=== PATIENT | female | born 1975 | race Caucasian/White ===

== ENCOUNTER 2018-02-25 18:35 | Emergency (ER) | payer MEDICARE, OTHER ==
[2018-02-25 19:12] LABS: BASO % 0.6 % (0.0-1.0); EOS # 0.2 10^3/uL (0.0-0.50); EOS % 3.1 % (0.0-3.0); HEMATOCRIT 32.5 % (36.0-47.0); HEMOGLOBIN 10.3 g/dl (12.0-15.5); IMMATURE GRANULOCYTE % 0.2 % (0-3.0); LYMPH # 2.5 10^3/uL (1.5-4.5); LYMPH % 39.5 % (24.0-44.0); MEAN CORPUSCULAR HEMOGLOBIN 26.9 pg (27.0-33.0); MEAN CORPUSCULAR HGB CONC 31.7 g/dl (32.0-36.5); MEAN CORPUSCULAR VOLUME 84.9 fl (80.0-96.0); MONO # 0.5 10^3/uL (0.0-0.8); MONO % 7.5 % (0.0-5.0); NEUTROPHILS # 3.1 10^3/uL (1.8-7.7); NEUTROPHILS % 49.1 % (36.0-66.0); PLATELET COUNT, AUTOMATED 295 10^3/uL (150-450); RED BLOOD COUNT 3.83 10^6/uL (4.00-5.40); RED CELL DISTRIBUTION WIDTH 15.3 % (11.5-14.5); RETIC HEMOGLOBIN EQUIVALENT 29.7 pg (24-36); RETICULOCYTE # 42.5 10^9/L (17-77); RETICULOCYTE % 1.1 % (0.5-1.5); WHITE BLOOD COUNT 6.4 10^3/uL (4.0-10.0)
[2018-02-25 19:36] LABS: ANION GAP 9 MEQ/L (8-16); BLOOD UREA NITROGEN 10 MG/DL (7-18); CALCIUM LEVEL 8.7 MG/DL (8.5-10.1); CARBON DIOXIDE LEVEL 25 MEQ/L (21-32); CHLORIDE LEVEL 108 MEQ/L (98-107); CK-MB VALUE MASS < 1.0 NG/ML (<3.6); CPK CREATINE PHOSPHOKINASE 109 U/L (26-192); CREATININE FOR GFR 0.74 MG/DL (0.55-1.30); GLOMERULAR FILTRATION RATE > 60.0 (>58); GLUCOSE, FASTING 89 MG/DL (70-100); MB/CK RELATIVE INDEX 0.91 (< OR =4); SODIUM LEVEL 142 MEQ/L (136-145); TROPONIN I < 0.02 NG/ML (< 0.10)
[2018-02-25 19:38] LABS: INR 0.98; PROTHROMBIN TIME 13.1 SECONDS (12.4-14.5)
[2018-02-25 19:39] LABS: PARTIAL THROMBOPLASTIN TIME 28.1 SECONDS (26.8-37.9)
[2018-02-25 19:46] LABS: ABG BASE EXCESS 0.5 (-2.0-2.0); ABG O2 SATURATION 97.4 % (95.0-99.0); ABG PARTIAL PRESSURE CO2 34.9 mmHg (35.0-45.0); ABG PARTIAL PRESSURE O2 96.9 mmHg (75.0-100.0); ABG STANDARD HCO3 24.9 MEQ/L (22.0-26.0); ABG TOTAL CO2 25.1 MEQ/L (22.0-29.0); ABG pH (ARTERIAL) 7.456 UNITS (7.350-7.450)
[2018-02-25] MEDS: ACETAMINOPHEN 325 MG TAB PO (21:13)
[2018-02-25 21:23] LABS: CARBOXYHEMOGLOBIN 1.3 % (0.0-1.5)
== END 2018-02-25 23:15 | disposition home or self-care (01) ==
LOC: M ED 23:15
DX: D64.9 Anemia, unspecified (principal); F41.9 Anxiety disorder, unspecified; R94.31 Abnormal electrocardiogram [ECG] [EKG]; F33.9 Major depressive disorder, recurrent, unspecified; Z98.0 Intestinal bypass and anastomosis status; Z98.890 Other specified postprocedural states; Z79.899 Other long term (current) drug therapy
CPT/HCPCS: 70450

== ENCOUNTER → 2018-03-03 | Outpatient (REF) | payer MEDICARE ==
[2018-03-03 13:25] LABS: HEMATOCRIT 33.6 % (36.0-47.0)
[2018-03-03 13:50] LABS: VITAMIN B12 LEVEL 332 PG/ML
[2018-03-03 13:51] LABS: FOLATE 14.3 NG/ML
[2018-03-03 13:53] LABS: FERRITIN 4 NG/ML (8-252); FREE T4 0.88 NG/DL (0.76-1.46); IRON (FE) 35 UG/DL (50-170); TOTAL IRON BINDING CAPACITY 440 UG/DL (250-450); TOTAL PROTEIN 7.1 GM/DL (6.4-8.2)
[2018-03-04 10:18] LABS: ANTINUCLEAR ANTIBODIES DIRECT Negative (Negative)
[2018-03-04 10:18] LABS: HAPTOGLOBIN 121 mg/dL (34-200)
[2018-03-07 11:04] LABS: PRETREATED FOLATE FOR RBCFOL 8.3 NG/ML; RBC FOLATE 518.8 NG/ML (280-791)
[2018-03-07 13:26] LABS: ALBUMIN % 59.9 % (55.8-66.1)
[2018-03-07 13:27] LABS: ALBUMIN 4.25 GM/DL (3.29-5.55); ALPHA-1-GLOBULINS 0.28 GM/DL (0.17-0.41); ALPHA-2-GLOBULINS 0.74 GM/DL (0.42-0.99); ALPHA-2-GLOBULINS % 10.4 % (7.1-11.8); BETA-1-GLOBULINS % 7.1 % (4.7-7.2); BETA-2-GLOBULINS 0.31 GM/DL (0.19-0.55); BETA-2-GLOBULINS % 4.3 % (3.2-6.5); GAMMA GLOBULIN % 14.3 % (11.1-18.8); GAMMA GLOBULINS 1.02 GM/DL (0.65-1.58)
== END ==
LOC: M LAB REF 12:44
DX: D64.9 Anemia, unspecified (principal); R53.83 Other fatigue
CPT/HCPCS: 82746

== ENCOUNTER → 2018-04-21 | Outpatient (REF) | payer MEDICARE ==
[2018-04-21 13:55] LABS: FERRITIN 51 NG/ML (8-252); IRON (FE) 61 UG/DL (50-170); PERCENT SATURATION 20.3 % (13.2-45.0); TOTAL IRON BINDING CAPACITY 301 UG/DL (250-450)
== END ==
LOC: M LAB REF 13:23
DX: D50.9 Iron deficiency anemia, unspecified (principal); K91.2 Postsurgical malabsorption, not elsewhere classified; R53.83 Other fatigue
CPT/HCPCS: 83550

== ENCOUNTER → 2018-08-27 | Outpatient (REF) | payer MEDICARE ==
[2018-08-27 19:19] LABS: BASO # 0.1 10^3/uL (0.0-0.2); BASO % 0.6 % (0.0-1.0); EOS # 0.1 10^3/uL (0.0-0.50); EOS % 1.3 % (0.0-3.0); HEMATOCRIT 40.9 % (36.0-47.0); HEMOGLOBIN 13.3 g/dl (12.0-15.5); IMMATURE GRANULOCYTE % 0.2 % (0-3.0); LYMPH # 1.6 10^3/uL (1.5-4.5); LYMPH % 19.1 % (24.0-44.0); MEAN CORPUSCULAR HEMOGLOBIN 32.4 pg (27.0-33.0); MEAN CORPUSCULAR HGB CONC 32.5 g/dl (32.0-36.5); MEAN CORPUSCULAR VOLUME 99.5 fl (80.0-96.0); MONO # 0.6 10^3/uL (0.0-0.8); NEUTROPHILS # 5.9 10^3/uL (1.8-7.7); NEUTROPHILS % 71.8 % (36.0-66.0); PLATELET COUNT, AUTOMATED 268 10^3/uL (150-450); RED BLOOD COUNT 4.11 10^6/uL (4.00-5.40); WHITE BLOOD COUNT 8.2 10^3/uL (4.0-10.0)
[2018-08-27 19:34] LABS: ALBUMIN 3.6 GM/DL (3.2-5.2); ALBUMIN/GLOBULIN RATIO 1.33 (1.00-1.93); ALKALINE PHOSPHATASE 52 U/L (45-117); ALT/SGPT 21 U/L (12-78); ANION GAP 5 MEQ/L (8-16); AST/SGOT 14 U/L (7-37); BILIRUBIN,TOTAL 0.2 MG/DL (0.2-1.0); BLOOD UREA NITROGEN 5 MG/DL (7-18); CALCIUM LEVEL 8.3 MG/DL (8.5-10.1); CARBON DIOXIDE LEVEL 29 MEQ/L (21-32); CHLORIDE LEVEL 107 MEQ/L (98-107); FERRITIN 135 NG/ML (8-252); GLOMERULAR FILTRATION RATE > 60.0 (>58); GLUCOSE, FASTING 72 MG/DL (70-100); IRON (FE) 96 UG/DL (50-170); POTASSIUM SERUM 4.4 MEQ/L (3.5-5.1); RHEUMATOID FACTOR QUANT < 10.0 IU/ML (<15.0); SODIUM LEVEL 141 MEQ/L (136-145); TOTAL PROTEIN 6.3 GM/DL (6.4-8.2)
[2018-08-28 10:21] LABS: VITAMIN B12 LEVEL 401 PG/ML (247-911)
[2018-08-29 15:15] LABS: ANTINUCLEAR ANTIBODIES DIRECT Negative (Negative)
[2018-08-30 00:06] LABS: Lyme Disease IgG/IgM Antibodie <0.91 ISR (0.00-0.90); Lyme Disease IgM Ab Quantitati <0.80 index (0.00-0.79)
== END ==
LOC: M SFHCLERA 11:21
DX: R53.83 Other fatigue (principal); M25.50 Pain in unspecified joint; D64.9 Anemia, unspecified
CPT/HCPCS: 83540

== ENCOUNTER → 2018-12-15 | Outpatient (CLI) | payer MEDICARE ==
[~2018-12-15] MED LIST: DYMI137S; GERITAB9 PO; IRON50TA PO; LEXA1TAB2 PO; MAGN400C3 PO; MULTCAP PO; NEXI20CA PO; VITA50005 PO; XANA0.5T PO
--- NOTE | 2018-12-15 11:57 | REP ---
MAXILLOFACIAL CT WITHOUT CONTRAST: HISTORY: Recurrent sinusitis. The frontal sinuses are hypoplastic. Minimal mucosal thickening is present in the right maxillary sinus. Mild mucosal thickening is present in the left sphenoid sinus. The remaining sinuses are clear. The ostiomeatal units are patent. The middle and inferior nasal turbinates are partially paradoxical. There is gabriella bullosa of the left middle nasal turbinate. There is very minimal deviation of the nasal septum to the right. The cribriform plate, medial talavera of the orbits and optic canals are intact. There is aeration of the right anterior clinoid process. The carotid canals form a segment of the posterolateral talavera of the sphenoid sinus. The sphenoid sinus septum inserts into the right internal carotid canal wall. IMPRESSION: Sinus mucosal thickening as described above. Electronically Signed by Oscar Crain MD 12/15/2018 12:03 P
== END ==
LOC: M RAD 11:23
PROVIDERS: ATTEND Family Medicine
DX: J32.9 Chronic sinusitis, unspecified (principal)

== ENCOUNTER 2019-03-02 10:41 | Day surgery (SDC) | payer MEDICARE ==
[~2019-03-02] VITALS: Ht 160 cm; Wt 78.9 kg
[~2019-03-02 10:41] MED LIST changes: +MONT10TA2 PO; +NS 1,000 ML IV ONE; +SM A PO
[2019-03-02] MEDS ORDERED: PROPOFOL 200 MG/20 ML VIAL As Ordered ONE (12:18)
[2019-03-02] MEDS ORDERED: LIDOCAINE 2% INJ 100 MG/5 ML SDV (FOR ANES.) As Ordered ONE (12:18)
--- NOTE | 2019-03-02 13:44 | ROOR ---
Patient Name: Meagan Hart Procedure Date: 03/02/2019 12:56 PM Date of : 1975 Age: 43 Room: [facility], [facility]IN [facility] Gender: Female Note Status: Finalized Procedure: Upper GI endoscopy Indications: Epigastric abdominal pain, Heartburn Providers: Rizwan Chow MD Referring MD: Leah MARIA MD Requesting Provider: Medicines: Monitored Anesthesia Care Complications: No immediate complications. Procedure: Pre-Anesthesia Assessment: - Prior to the procedure, a History and Physical was performed, and patient medications and allergies were reviewed. The patient is competent. The risks and benefits of the procedure and the sedation options and risks were discussed with the patient. All questions were answered and informed consent was obtained. Patient identification and proposed procedure were verified by the physician, the nurse and the anesthesiologist in the procedure room. Mental Status Examination: alert and oriented. Airway Examination: normal oropharyngeal airway and neck mobility. Respiratory Examination: clear to auscultation. CV Examination: normal. Prophylactic Antibiotics: The patient does not require prophylactic antibiotics. Prior Anticoagulants: The patient has taken no previous anticoagulant or antiplatelet agents. ASA Grade Assessment: II - A patient with mild systemic disease. After reviewing the risks and benefits, the patient was deemed in satisfactory condition to undergo the procedure. The anesthesia plan was to use monitored anesthesia care (MAC). Immediately prior to administration of medications, the patient was re-assessed for adequacy to receive sedatives. The heart rate, respiratory rate, oxygen saturations, blood pressure, adequacy of pulmonary ventilation, and response to care were monitored throughout the procedure. The physical status of the patient was re-assessed after the procedure. The Endoscope was introduced through the mouth, and advanced to the second part of duodenum. The upper GI endoscopy was accomplished without difficulty. The patient tolerated the procedure well. Findings: The examined esophagus was normal. The Z-line was irregular and was found 34 cm from the incisors. Evidence of a gastric bypass was found. A gastric pouch with a small size was found. The staple line appeared intact. The gastrojejunal anastomosis was characterized by healthy appearing mucosa and congestion. This was traversed. The jejunojejunal anastomosis was characterized by healthy appearing mucosa. The aricqixc-wh-loddhmk limb was not examined as it could not be found. Two biopsies were obtained with cold forceps for Helicobacter pylori testing in the gastric fundus, as well as one biopsy at the anastomosis. Verification of patient identification for the specimen was done by the physician and nurse using the patient's name, date and medical record number. Estimated blood loss was minimal. Normal mucosa was found in the jejunum. Biopsies for histology were taken with a cold forceps for evaluation of celiac disease. Impression: - Normal esophagus. - Z-line irregular, 34 cm from the incisors. - Gastric bypass with a small-sized pouch and intact staple line. Gastrojejunal anastomosis characterized by healthy appearing mucosa and congestion. - Normal mucosa was found in the jejunum. Biopsied. - Biopsies performed in the gastric fundus and at the anastomosis. Recommendation: - Patient has a contact number available for emergencies. The signs and symptoms of potential delayed complications were discussed with the patient. Return to normal activities tomorrow. Written discharge instructions were provided to the patient. - High fiber diet. - Continue present medications. - Recommend an iron supplement. - Follow an antireflux regimen. - Await pathology results. - Based on the biopsy results you will receive a phone call from GI clinic in 2-3 weeks to review the pathology results AND/OR your results will be faxed to your Primary care physician. - Return to primary care physician. Rizwan Chow MD Rizwan Chow MD 03/02/2019 1:44:07 PM Electronically signed by Rizwan Chow MD Number of Addenda: 0 Note Initiated On: 03/02/2019 12:56 PM Estimated Blood Loss: Estimated blood loss was minimal.
[2019-03-02 13:55] VITALS: BP 99/59
--- NOTE | 2019-03-02 14:08 | ROOR ---
Patient Name: Meagan Hart Procedure Date: 03/02/2019 12:57 PM Date of : 1975 Age: 43 Room: [facility] Gender: Female Note Status: Finalized Procedure: Colonoscopy Indications: Chronic diarrhea Providers: Rizwan Chow MD Referring MD: Leah MARIA MD Requesting Provider: Medicines: Monitored Anesthesia Care Complications: No immediate complications. Procedure: Pre-Anesthesia Assessment: - Prior to the procedure, a History and Physical was performed, and patient medications and allergies were reviewed. The patient is competent. The risks and benefits of the procedure and the sedation options and risks were discussed with the patient. All questions were answered and informed consent was obtained. Patient identification and proposed procedure were verified by the physician, the nurse and the anesthesiologist in the procedure room. Mental Status Examination: alert and oriented. Airway Examination: normal oropharyngeal airway and neck mobility. Respiratory Examination: clear to auscultation. CV Examination: normal. Prophylactic Antibiotics: The patient does not require prophylactic antibiotics. Prior Anticoagulants: The patient has taken no previous anticoagulant or antiplatelet agents. ASA Grade Assessment: II - A patient with mild systemic disease. After reviewing the risks and benefits, the patient was deemed in satisfactory condition to undergo the procedure. The anesthesia plan was to use monitored anesthesia care (MAC). Immediately prior to administration of medications, the patient was re-assessed for adequacy to receive sedatives. The heart rate, respiratory rate, oxygen saturations, blood pressure, adequacy of pulmonary ventilation, and response to care were monitored throughout the procedure. The physical status of the patient was re-assessed after the procedure. The Colonoscope was introduced through the anus and advanced to the terminal ileum, with identification of the appendiceal orifice and IC valve. The colonoscopy was performed without difficulty. The patient tolerated the procedure well. The quality of the bowel preparation was good. The terminal ileum, ileocecal valve, appendiceal orifice, and rectum were photographed. Scope insertion time was 3 minutes. Scope withdrawal time was 6 minutes. The total duration of the procedure was 9 minutes. Findings: The perianal and digital rectal examinations were normal. The terminal ileum appeared normal. A 5 mm polyp was found in the transverse colon. The polyp was sessile. The polyp was removed with a cold biopsy forceps. Resection and retrieval were complete. Verification of patient identification for the specimen was done by the physician and nurse using the patient's name, date and medical record number. Estimated blood loss was minimal. Non-bleeding external and internal hemorrhoids were found during retroflexion. The hemorrhoids were small. Normal mucosa was found in the entire colon. Biopsies for histology were taken with a cold forceps from the right colon, left colon and rectosigmoid colon for evaluation of microscopic colitis. Impression: - The examined portion of the ileum was normal. - One 5 mm polyp in the transverse colon, removed with a cold biopsy forceps. Resected and retrieved. - Non-bleeding external and internal hemorrhoids. - Normal mucosa in the entire examined colon. Biopsied. Recommendation: - Patient has a contact number available for emergencies. The signs and symptoms of potential delayed complications were discussed with the patient. Return to normal activities tomorrow. Written discharge instructions were provided to the patient. - High fiber diet. - Continue present medications. - Await pathology results. - Repeat colonoscopy in 5-10 years for surveillance based on pathology results. - Based on the biopsy results you will receive a phone call from GI clinic in 2-3 weeks to review the pathology results AND/OR your results will be faxed to your Primary care physician. - Return to primary care physician. Rizwan Chow MD Rizwan Chow MD 03/02/2019 2:07:59 PM Electronically signed by Rizwan Chow MD Number of Addenda: 0 Note Initiated On: 03/02/2019 12:57 PM Estimated Blood Loss: Estimated blood loss was minimal.
== END 2019-03-02 14:05 | disposition home or self-care (01) ==
LOC: M OPP 10:41
PROVIDERS: ATTEND Internal Medicine Gastroenterology
DX: D12.3 Benign neoplasm of transverse colon (principal); K64.8 Other hemorrhoids; K22.8 Other specified diseases of esophagus; R10.13 Epigastric pain; R12 Heartburn; Z98.84 Bariatric surgery status

== ENCOUNTER → 2019-07-13 | Outpatient (CLI) | payer MEDICARE ==
[~2019-07-13] MED LIST changes: -NS 1,000 ML IV ONE
[2019-07-13 18:24] LABS: CHOLESTEROL RISK RATIO 5.245 (<5)
== END ==
LOC: M WUC 10:58
PROVIDERS: ATTEND Family Medicine
DX: Z13.1 Encounter for screening for diabetes mellitus (principal); Z13.220 Encounter for screening for lipoid disorders

== ENCOUNTER → 2019-07-20 | Outpatient (CLI) | payer MEDICARE ==
[2019-07-20 10:07] LABS: FREE T4 0.88 NG/DL (0.76-1.46); THYROID STIMULATING HORMONE 2.54 uIU/ML (0.358-3.740)
== END ==
LOC: M WUC 08:37
PROVIDERS: ATTEND Family Medicine
DX: R53.83 Other fatigue (principal)

== ENCOUNTER → 2019-07-28 | Outpatient (CLI) | payer MEDICARE ==
[2019-07-28 14:54] LABS: BASO % 0.5 % (0.0-1.0); EOS # 0.2 10^3/uL (0.0-0.5); HEMATOCRIT 40.9 % (36.0-47.0); HEMOGLOBIN 13.7 g/dl (12.0-15.5); LYMPH # 2.4 10^3/uL (1.5-5.0); MEAN CORPUSCULAR HEMOGLOBIN 31.9 pg (27.0-33.0); MEAN CORPUSCULAR HGB CONC 33.5 g/dl (32.0-36.5); MEAN CORPUSCULAR VOLUME 95.3 fl (80.0-96.0); MONO # 0.6 10^3/uL (0.0-0.8); MONO % 7.8 % (0.0-5.0); NEUTROPHILS # 4.4 10^3/uL (1.5-8.5); NEUTROPHILS % 58.4 % (36.0-66.0); PLATELET COUNT, AUTOMATED 252 10^3/uL (150-450); RED BLOOD COUNT 4.29 10^6/uL (4.00-5.40); WHITE BLOOD COUNT 7.6 10^3/uL (4.0-10.0)
[2019-07-28 15:16] LABS: ALBUMIN 3.7 GM/DL (3.2-5.2); ALT/SGPT 18 U/L (12-78); BILIRUBIN,TOTAL 0.4 MG/DL (0.2-1.0); BLOOD UREA NITROGEN 6 MG/DL (7-18); CALCIUM LEVEL 8.5 MG/DL (8.5-10.1); CARBON DIOXIDE LEVEL 27 MEQ/L (21-32); CHLORIDE LEVEL 107 MEQ/L (98-107); CHOLESTEROL LEVEL 240 MG/DL (<200); CHOLESTEROL RISK RATIO 5.217 (<5); GLOMERULAR FILTRATION RATE > 60.0 (>58); GLUCOSE, FASTING 73 MG/DL (70-100); HDL CHOLESTEROL 46 MG/DL (>40); LDL CHOLESTEROL 168 MG/DL (<100); NON-HDL-C 194 MG/DL; POTASSIUM SERUM 4.2 MEQ/L (3.5-5.1); SODIUM LEVEL 140 MEQ/L (136-145); TOTAL PROTEIN 6.6 GM/DL (6.4-8.2); TRIGLYCERIDES LEVEL 129 MG/DL (<150)
[2019-07-30 10:34] LABS: PTH INTACT 112.7 PG/ML (18.5-88.0); TOTAL 25(OH) VITAMIN D 19.4 NG/ML (30.0-100.0); VITAMIN B12 LEVEL 225 PG/ML
[2019-07-30 10:35] LABS: FOLATE 17.4 NG/ML
[2019-08-01 10:35] LABS: COPPER PLASMA 99 ug/dL (72-166); ZINC PLASMA 65 ug/dL (56-134)
== END ==
LOC: M WUC 11:02
PROVIDERS: ATTEND Family Medicine
DX: D50.9 Iron deficiency anemia, unspecified (principal); E78.2 Mixed hyperlipidemia; Z98.84 Bariatric surgery status; Z79.899 Other long term (current) drug therapy

== ENCOUNTER 2020-07-02 17:31 | Emergency (ER) | payer MEDICARE ==
[~2020-07-02] VITALS: Ht 154.9 cm; Wt 82.1 kg
[~2020-07-02 17:31] MED LIST changes: -MONT10TA2 PO; +MONT10TA4 PO
[2020-07-02] MEDS ORDERED: NS 1,000 ML IV ONE (18:00)
[2020-07-02 18:25] LABS: BASO # 0.1 10^3/uL (0.0-0.2); BASO % 0.7 % (0.0-1.0); EOS # 0.1 10^3/uL (0.0-0.5); EOS % 0.7 % (0.0-3.0); HEMATOCRIT 37.3 % (36.0-47.0); HEMOGLOBIN 12.4 g/dl (12.0-15.5); LYMPH # 2.1 10^3/uL (1.5-5.0); LYMPH % 30.8 % (24.0-44.0); MEAN CORPUSCULAR HEMOGLOBIN 31.9 pg (27.0-33.0); MEAN CORPUSCULAR HGB CONC 33.2 g/dl (32.0-36.5); MEAN CORPUSCULAR VOLUME 95.9 fl (80.0-96.0); MONO # 0.5 10^3/uL (0.0-0.8); MONO % 7.9 % (0.0-5.0); NEUTROPHILS % 59.8 % (36.0-66.0); PLATELET COUNT, AUTOMATED 245 10^3/uL (150-450); RED BLOOD COUNT 3.89 10^6/uL (4.00-5.40); WHITE BLOOD COUNT 6.7 10^3/uL (4.0-10.0)
[2020-07-02 18:47] LABS: ALBUMIN 3.8 GM/DL (3.2-5.2); ALT/SGPT 22 U/L (12-78); BILIRUBIN,DIRECT < 0.1 MG/DL (0.0-0.2); BILIRUBIN,TOTAL 0.2 MG/DL (0.2-1.0); LIPASE 172 U/L (73-393); TOTAL PROTEIN 7.2 GM/DL (6.4-8.2)
[2020-07-02] MEDS: GASTROGRAFIN SOLUTION 30ML PO SCH ×2 (19:21→19:52)
[2020-07-02] MEDS ORDERED: ISOVUE-370 76% 100ML VIAL As Ordered ONE (20:45)
--- NOTE | 2020-07-02 21:25 | REPVR ---
PROCEDURE INFORMATION: Exam: CT Abdomen And Pelvis With Contrast Exam date and time: 07/02/2020 8:54 PM Age: 44 years old Clinical indication: Abdominal pain; Additional info: Rlq, llq abd pain, S/P gastric bypass, R/O appendicitis TECHNIQUE: Imaging protocol: Computed tomography of the abdomen and pelvis with intravenous contrast. Axial, coronal and sagittal reformatted images were created and reviewed. Radiation optimization: All CT scans at this facility use at least one of these dose optimization techniques: automated exposure control; mA and/or kV adjustment per patient size (includes targeted exams where dose is matched to clinical indication); or iterative reconstruction. Contrast material: ISOVUE 370; Contrast volume: 100 ml; Contrast route: INTRAVENOUS (IV); Other contrast: Oral, gastrographin; COMPARISON: No relevant prior studies available. FINDINGS: Mediastinal space: Small hiatal hernia. Liver: Unremarkable. Gallbladder and bile ducts: No radiodense gallstones. No biliary ductal dilatation. Pancreas: Unremarkable. Spleen: Unremarkable. Adrenals: Unremarkable. Kidneys and ureters: No mass. No radiodense calculi. No hydronephrosis. Stomach and bowel: Status post gastric bypass surgery. No obstruction. No bowel wall thickening. No pneumatosis. Appendix: Normal. Intraperitoneal space: No free fluid. No organized fluid collection. No free air. Vasculature: Unremarkable. No aneurysm. Lymph nodes: No pathologically enlarged lymph nodes. Bladder: Unremarkable. Reproductive: 3.5 x 2.8 cm right adnexal cystic lesion. Bones/joints: No acute osseous abnormality. Soft tissues: Unremarkable. IMPRESSION: 1. No CT evidence of acute appendicitis. 2. Additional findings, as above. Electronically signed by: Reji Mclaughlin On 07/02/2020 21:24:51 PM
[2020-07-02 21:45] VITALS: BP 105/53
== END 2020-07-02 21:47 | disposition home or self-care (01) ==
LOC: M ED 17:31
DX: R10.31 Right lower quadrant pain (principal); N83.201 Unspecified ovarian cyst, right side; D64.9 Anemia, unspecified; K21.9 Gastro-esophageal reflux disease without esophagitis; F42.9 Obsessive-compulsive disorder, unspecified; F60.9 Personality disorder, unspecified; F40.01 Agoraphobia with panic disorder; F12.10 Cannabis abuse, uncomplicated; Z79.899 Other long term (current) drug therapy
CPT/HCPCS: 74177; 80047; 80076; 81001; 83690; 84702; 85025; 96360; 99284; Q9963; Q9967

== ENCOUNTER → 2020-09-02 | Outpatient (REF) | payer MEDICARE | LOC: M SFHCWAGY 13:35 | PROVIDERS: ATTEND Nurse Practitioner Women's Health | DX: Z12.4 Encounter for screening for malignant neoplasm of cervix (principal) | CPT/HCPCS: 87624; G0123; G0463 ==

== ENCOUNTER → 2021-02-13 | Outpatient (CLI) | payer MEDICARE ==
[~2021-02-13] MED LIST changes: +ALL10TAB PO; +MONT10TA10 PO; -MONT10TA4 PO; -SM A PO
[2021-02-13 16:18] LABS: BASO # 0.1 10^3/uL (0.0-0.2); BASO % 0.8 % (0.0-1.0); EOS % 0.6 % (0.0-3.0); HEMATOCRIT 40.6 % (36.0-47.0); HEMOGLOBIN 13.1 g/dl (12.0-15.5); LYMPH # 1.8 10^3/uL (1.5-5.0); LYMPH % 29.3 % (24.0-44.0); MEAN CORPUSCULAR HEMOGLOBIN 30.8 pg (27.0-33.0); MEAN CORPUSCULAR HGB CONC 32.3 g/dl (32.0-36.5); MEAN CORPUSCULAR VOLUME 95.3 fl (80.0-96.0); MONO # 0.5 10^3/uL (0.0-0.8); MONO % 8.3 % (2.0-8.0); NEUTROPHILS # 3.8 10^3/uL (1.5-8.5); NEUTROPHILS % 60.8 % (36.0-66.0); PLATELET COUNT, AUTOMATED 271 10^3/uL (150-450); RED BLOOD COUNT 4.26 10^6/uL (4.00-5.40); WHITE BLOOD COUNT 6.3 10^3/uL (4.0-10.0)
[2021-02-13 17:03] LABS: FOLATE 10.6 NG/ML; TOTAL 25(OH) VITAMIN D 22.6 NG/ML (30.0-100.0)
== END ==
LOC: M WUC 13:53
PROVIDERS: ATTEND Family Medicine
DX: Z98.84 Bariatric surgery status (principal)

== ENCOUNTER 2021-06-14 08:23 | Emergency (ER) | payer MEDICARE ==
[~2021-06-14] VITALS: Ht 157.5 cm; Wt 86.5 kg
[~2021-06-14 08:23] MED LIST changes: -MONT10TA10 PO; +MONT10TA97 PO
[2021-06-14] MEDS ORDERED: IBUP-1022 PO (08:42)
[2021-06-14] MEDS ORDERED: ACET-683 PO (08:42)
[2021-06-14 09:46] LABS: BASO % 0.3 % (0.0-1.0); HEMOGLOBIN 13.7 g/dl (12.0-15.5); LYMPH # 0.7 10^3/uL (1.5-5.0); LYMPH % 19.4 % (24.0-44.0); MEAN CORPUSCULAR HEMOGLOBIN 30.8 pg (27.0-33.0); MEAN CORPUSCULAR HGB CONC 33.4 g/dl (32.0-36.5); MEAN CORPUSCULAR VOLUME 92.1 fl (80.0-96.0); MONO # 0.2 10^3/uL (0.0-0.8); MONO % 4.3 % (2.0-8.0); NEUTROPHILS # 2.8 10^3/uL (1.5-8.5); NEUTROPHILS % 75.7 % (36.0-66.0); PLATELET COUNT, AUTOMATED 166 10^3/uL (150-450); RED BLOOD COUNT 4.45 10^6/uL (4.00-5.40); WHITE BLOOD COUNT 3.7 10^3/uL (4.0-10.0)
[2021-06-14 10:07] LABS: ERYTHROCYTE SEDIMENTATION RATE 32 mm/hr (0-20)
[2021-06-14 10:08] LABS: ALBUMIN 3.1 GM/DL (3.2-5.2); ALT/SGPT 23 U/L (12-78); BILIRUBIN,DIRECT < 0.1 MG/DL (0.0-0.2); BILIRUBIN,TOTAL 0.2 MG/DL (0.2-1.0); BLOOD UREA NITROGEN 8 MG/DL (7-18); C REACTIVE PROTEIN QUANTITATIV 1.33 MG/DL (0.00-0.30); CALCIUM LEVEL 7.9 MG/DL (8.5-10.1); CARBON DIOXIDE LEVEL 24 MEQ/L (21-32); CHLORIDE LEVEL 112 MEQ/L (98-107); CREATININE FOR GFR 0.56 MG/DL (0.55-1.30); GLOMERULAR FILTRATION RATE > 60.0 (>58); GLUCOSE, FASTING 76 MG/DL (70-100); POTASSIUM SERUM 3.6 MEQ/L (3.5-5.1); SODIUM LEVEL 141 MEQ/L (136-145); TOTAL PROTEIN 6.3 GM/DL (6.4-8.2)
[2021-06-14 11:55] VITALS: BP 117/60
[2021-06-14 11:57] VITALS: O2SAT 97
[2021-06-16 16:08] LABS: Lyme Disease IgG/IgM Antibodie <0.91 ISR (0.00-0.90); Lyme Disease IgM Ab Quantitati <0.80 index (0.00-0.79)
[2021-06-27] MEDS ORDERED: MONT10TA97 (12:21)
== END 2021-06-14 12:14 | disposition home or self-care (01) ==
LOC: M ED 08:23
DX: U07.1 COVID-19 (principal); F41.9 Anxiety disorder, unspecified; F42.9 Obsessive-compulsive disorder, unspecified; F60.9 Personality disorder, unspecified; Z79.899 Other long term (current) drug therapy

== ENCOUNTER 2021-06-27 11:55 | Emergency (ER) | payer MEDICARE ==
[~2021-06-27] VITALS: Ht 154.9 cm; Wt 84.2 kg
[~2021-06-27 11:55] MED LIST changes: +ACET-683 PO; +IBUP-1022 PO; +MONT10TA10 PO; -MONT10TA97 PO
[2021-06-27] MEDS ORDERED: GERILIQ7 PO (12:21)
[2021-06-27] MEDS ORDERED: MONT10TA10 (12:21)
[2021-06-27 13:25] LABS: BASO % 0.6 % (0.0-1.0); EOS % 0.3 % (0.0-3.0); HEMATOCRIT 41.8 % (36.0-47.0); LYMPH # 1.5 10^3/uL (1.5-5.0); LYMPH % 23.5 % (24.0-44.0); MEAN CORPUSCULAR HEMOGLOBIN 30.8 pg (27.0-33.0); MEAN CORPUSCULAR HGB CONC 33.5 g/dl (32.0-36.5); MEAN CORPUSCULAR VOLUME 92.1 fl (80.0-96.0); MONO # 0.5 10^3/uL (0.0-0.8); MONO % 7.6 % (2.0-8.0); NEUTROPHILS # 4.4 10^3/uL (1.5-8.5); PLATELET COUNT, AUTOMATED 474 10^3/uL (150-450); RED BLOOD COUNT 4.54 10^6/uL (4.00-5.40); WHITE BLOOD COUNT 6.5 10^3/uL (4.0-10.0)
[2021-06-27 13:55] LABS: ALBUMIN 3.4 GM/DL (3.2-5.2); ALT/SGPT 26 U/L (12-78); BILIRUBIN,DIRECT 0.1 MG/DL (0.0-0.2); BILIRUBIN,TOTAL 0.5 MG/DL (0.2-1.0); BLOOD UREA NITROGEN 5 MG/DL (7-18); CALCIUM LEVEL 8.8 MG/DL (8.5-10.1); CARBON DIOXIDE LEVEL 26 MEQ/L (21-32); CHLORIDE LEVEL 108 MEQ/L (98-107); CK-MB VALUE MASS < 1.0 NG/ML (<3.6); CPK CREATINE PHOSPHOKINASE 46 U/L (26-192); CREATININE FOR GFR 0.62 MG/DL (0.55-1.30); FREE T4 1.02 NG/DL (0.76-1.46); GLOMERULAR FILTRATION RATE > 60.0 (>58); GLUCOSE, FASTING 109 MG/DL (70-100); LIPASE 354 U/L (73-393); MB/CK RELATIVE INDEX 2.17 (< OR =4); POTASSIUM SERUM 3.7 MEQ/L (3.5-5.1); SODIUM LEVEL 141 MEQ/L (136-145); THYROID STIMULATING HORMONE 0.779 uIU/ML (0.358-3.740); TOTAL PROTEIN 6.9 GM/DL (6.4-8.2); TROPONIN I < 0.02 NG/ML (< 0.10)
[2021-06-27] MEDS ORDERED: ISOVUE-370 76% 100ML VIAL As Ordered ONE (13:57)
[2021-06-27] MEDS ORDERED: ALPRAZolam 0.5 MG TAB PO ONE (14:35)
--- NOTE | 2021-06-27 14:49 | REP ---
INDICATION: R/O PE. COMPARISON: None. TECHNIQUE: CT angiogram chest performed following the intravenous administration of 100 cc of Isovue 370. Sagittal and coronal reconstruction images are performed. FINDINGS: Lungs: There are scattered patchy bilateral infiltrates. These are seen primarily in the lower lobes, right greater than the left. Mediastinum: No adenopathy. Pulmonary arteries: No evidence of pulmonary embolism. Cecille: No adenopathy. Axilla: No adenopathy. Pleura: No effusion. Heart: There is mild cardiomegaly. Thoracic aorta: No aneurysm or dissection. Upper abdominal structures: There is a small hiatal hernia. There has been prior gastric surgery and cholecystectomy. Visualized osseous structures: Unremarkable. IMPRESSION: No CT evidence of pulmonary embolism. Scattered patchy bilateral infiltrates. <Electronically signed by Brandon Thompson > 06/27/21
[2021-06-27 15:24] VITALS: O2SAT 97
[2021-06-27 19:01] LABS: CK-MB VALUE MASS < 1.0 NG/ML (<3.6); CPK CREATINE PHOSPHOKINASE 36 U/L (26-192); MB/CK RELATIVE INDEX 2.78 (< OR =4); TROPONIN I < 0.02 NG/ML (< 0.10)
[2021-06-27 19:30] VITALS: BP 103/58
[2021-06-27] MEDS ORDERED: AZITHROMYCIN 250MG TABLET PO ONE (19:50)
[2021-06-27] MEDS ORDERED: AZIT-12 PO (19:58)
--- NOTE | 2021-06-28 19:55 | ECGEPIP ---
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
--- NOTE | 2021-06-28 20:02 | ECGEPIP ---
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
== END 2021-06-27 20:21 | disposition home or self-care (01) ==
LOC: M ED 11:55
DX: R07.9 Chest pain, unspecified (principal); F41.9 Anxiety disorder, unspecified; K58.9 Irritable bowel syndrome, unspecified; D50.9 Iron deficiency anemia, unspecified; Q07.00 Arnold-Chiari syndrome without spina bifida or hydrocephalus; Z79.899 Other long term (current) drug therapy
CPT/HCPCS: 36415; 71275; 80048; 80076; 82550; 82553; 83690; 84439; 84443; 84484; 85025; 93005; 93041; 94760; 99285; Q9967

== ENCOUNTER 2021-07-11 10:53 | Emergency (ER) | payer MEDICARE ==
[~2021-07-11] VITALS: Ht 157.5 cm; Wt 82.9 kg
[~2021-07-11 10:53] MED LIST changes: +AZIT-12 PO; +GERILIQ7 PO; +MONT10TA10
[2021-07-11] MEDS ORDERED: ALPRAZolam 0.5 MG TAB PO ONE (12:25)
[2021-07-11 13:07] LABS: BASO % 0.5 % (0.0-1.0); EOS % 0.3 % (0.0-3.0); HEMATOCRIT 40.4 % (36.0-47.0); HEMOGLOBIN 13.8 g/dl (12.0-15.5); LYMPH # 1.5 10^3/uL (1.5-5.0); MEAN CORPUSCULAR HEMOGLOBIN 31.5 pg (27.0-33.0); MEAN CORPUSCULAR HGB CONC 34.2 g/dl (32.0-36.5); MEAN CORPUSCULAR VOLUME 92.2 fl (80.0-96.0); MONO # 0.4 10^3/uL (0.0-0.8); MONO % 6.2 % (2.0-8.0); NEUTROPHILS # 4.6 10^3/uL (1.5-8.5); NEUTROPHILS % 69.7 % (36.0-66.0); PLATELET COUNT, AUTOMATED 250 10^3/uL (150-450); RED BLOOD COUNT 4.38 10^6/uL (4.00-5.40); WHITE BLOOD COUNT 6.6 10^3/uL (4.0-10.0)
[2021-07-11 13:41] LABS: BLOOD UREA NITROGEN 6 MG/DL (7-18); CALCIUM LEVEL 8.7 MG/DL (8.5-10.1); CARBON DIOXIDE LEVEL 25 MEQ/L (21-32); CHLORIDE LEVEL 110 MEQ/L (98-107); CK-MB VALUE MASS < 1.0 NG/ML (<3.6); CPK CREATINE PHOSPHOKINASE 48 U/L (26-192); CREATININE FOR GFR 0.55 MG/DL (0.55-1.30); FREE T4 1.07 NG/DL (0.76-1.46); GLOMERULAR FILTRATION RATE > 60.0 (>58); GLUCOSE, FASTING 88 MG/DL (70-100); MB/CK RELATIVE INDEX 2.08 (< OR =4); SODIUM LEVEL 142 MEQ/L (136-145); TROPONIN I < 0.02 NG/ML (< 0.10)
--- NOTE | 2021-07-11 16:43 | REP ---
INDICATION: blurred vision. COMPARISON: None. TECHNIQUE: Contiguous 5 mm thick axial projection images were obtained of the head. 2D coronal reconstructions were performed. FINDINGS: There is no evidence of acute intracranial hemorrhage or infarction. There are no abnormal intracranial masses or mass effects. The skull base and calvarium are normal. The visualized intraorbital and extracranial contents are unremarkable. IMPRESSION: Normal CT brain without IV contrast. <Electronically signed by David Groe > 07/11/21 [id number]
[2021-07-11 17:32] VITALS: BP 128/76
--- NOTE | 2021-07-12 08:21 | ECGEPIP ---
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
== END 2021-07-11 17:35 | disposition home or self-care (01) ==
LOC: M ED 10:53
DX: H53.9 Unspecified visual disturbance (principal); T50.995A Adverse effect of other drugs, medicaments and biological substances, initial encounter; F41.9 Anxiety disorder, unspecified; G93.5 Compression of brain; Z79.899 Other long term (current) drug therapy

== ENCOUNTER → 2021-07-24 | Outpatient (CLI) | payer MEDICARE ==
[~2021-07-24] MED LIST changes: +ATIV1TAB10 PO; +GABA-1171 PO; +LEXA1TAB PO; +MULTTAB61 PO; +MYLA1SUS PO; +NICO7PA TD; +PRENCHW PO
--- NOTE | 2021-07-24 13:38 | REPMRS ---
Patient History The patient states she has not had a clinical breast exam in over a year. Family history of breast cancer at age 54 in mother, breast cancer at age 50 or over and endometrial cancer at age 50 or over in paternal grandmother, breast cancer at age 50 or over in maternal uncle, colorectal cancer in paternal grandfather, prostate cancer at age 50 or over in paternal uncle. Reductions of both breasts, 1998. Indicated problem(s): left breast pain (local) for 2 weeks. Patient states left breast pain for two weeks Diagnostic Bilateral Mammo: July 24, 2021 - Exam #: [id number] Bilateral CC and MLO view(s) were taken. Technologist: Fara Fagan, Technologist Prior study comparison: July 27, 2019, bilateral digital mammo screening bilat, performed at [facility]. August 15, 2015, bilateral digital mammo screening bilat, performed at [facility]. May 07, 2014, bilateral digital mammo screening bilat, performed at [facility]. FINDINGS: There are scattered fibroglandular densities. The Volpara volumetric breast density category is:B. There has been no change in the appearance of the mammogram from the prior studies. There is a mild amount of scattered fibroglandular density which is fairly symmetric. There is no interval development of dominant mass, architectural distortion, or grouped microcalcification suggestive of malignancy. 3-D tomosynthesis shows no additional findings. Assessment: BI-RADS/ACR category 1 mammogram. Negative Mammogram. Recommendation Breast MRI of both breasts in 6 months. Routine screening mammogram of both breasts in 1 year (for women over age 40). This patient's [facility] Lifetime Breast Cancer Risk is estimated at 27.5 %. Patients whose estimated lifetime breast cancer risk assessment is greater than 20% merit annual screening breast MRI scanning in addition to annual mammography. This mammogram was interpreted with the aid of an FDA-approved computer-aided dectection system. Electronically Signed By: Colton Seaman MD 07/24/21 [id number]
== END ==
LOC: M WHC 12:45
PROVIDERS: ATTEND Family Medicine
DX: N64.4 Mastodynia (principal); Z80.3 Family history of malignant neoplasm of breast
CPT/HCPCS: 77066; G0279

== ENCOUNTER → 2021-07-31 | Outpatient (CLI) | payer MEDICARE | LOC: M PLAIMG 09:23 | PROVIDERS: ATTEND Family Medicine | DX: Q07.00 Arnold-Chiari syndrome without spina bifida or hydrocephalus (principal); Z53.9 Procedure and treatment not carried out, unspecified reason ==

== ENCOUNTER 2021-08-01 09:26 | Emergency (ER) | payer MEDICARE ==
[~2021-08-01] VITALS: Ht 157.5 cm; Wt 79.9 kg
[2021-08-01 09:26] VITALS: BP 137/86
[~2021-08-01 09:26] MED LIST changes: -ATIV1TAB10 PO; -GABA-1171 PO; -LEXA1TAB PO; -MULTTAB61 PO; -MYLA1SUS PO; -NICO7PA TD; -PRENCHW PO
--- OUTSIDE RECORDS SUMMARY | 2021-08-01 09:31 | CCD ---
Author Author [facility] Organization [facility] Address Unknown Phone Unavailable Care Team Providers Care Feed Management Advisor Name Role Phone Oscar Velasquez Unavailable PROBLEMS Type Condition ICD9-CM Code [id number] Code Onset Dates Condition S tatus W/U Status Risk SNOMED Code Notes Problem Anxiety F41.9 Active confirmed 71875505 Problem Irritable bowel syndrome with both constipation and diarrh ea K58.2 Active confirmed 29910872 Problem Allergic rhinitis, unspecified seasonality, unspecifie d trigger J30.9 Active confirmed 07764896 Problem Non-seasonal allergic rhinitis, unspecified trigger J30.89 Active confirmed 14083575 Problem Recurrent sinusitis J32.9 Active confirmed 879632387 Problem Severe anxiety F41.9 Active confirmed 90962 007 Problem Chronic sinusitis, unspecified location J32.9 Active confirmed 12719307 Problem Iron deficiency anemia, unspecified iron deficiency an emia type D50.9 Active confirmed 75972986 Problem Mixed hyperlipidemia E78.2 Active confirmed 475709993 Problem Vitamin D deficiency E55.9 Active confirmed 54296725 Problem Abnormal mammogram of left breast R92.8 Active confirmed 636940039 ALLERGIES No Known Allergies ENCOUNTERS from 1975 to 2021-07-01 Encounter Location Date Provider Diagnosis [address] [phone] [place] [address] Jun, Oscar Velasquez Severe anxiety F41.[address] pain, unspecified type R07.9 IMMUNIZATIONS No Information SOCIAL HISTORY Tobacco Use: Social History Observation Description Date Details (start date - stop date) Never Smoker Sex Assigned At : Social History Observation Description Sex Assigned At Unknown Education: Question Answer Notes Level of Education: College Audit Question Answer Notes Total Score: 0 Interpretation: Alcohol Education Language: Question Answer Notes Languages spoken: Scottish Yazdanism: Question Answer Notes Yazdanism 33 None Sexual Hx: Question Answer Notes Had sex in the last 12 months (vaginal, oral, or anal)? Yes Have you ever had an STD? No Prevention Strategies discussed: Other with Men only Use protection? No Drug and Alcohol Question Answer Notes Total Score: 1 Interpretation: Low level Alcohol Screening: Question Answer Notes Did you have a drink containing alcohol in the past year? No Points 0 Interpretation Negative Tobacco Use: Question Answer Notes Are you a: never smoker REASON FOR REFERRAL No Information VITAL SIGNS Weight 186.2 lbs Jun, Weight-kg 84.46 kg Jun, Height 62 in Jun, BMI 34.05 kg/m2 Jun, Heart Rate 88 /min Jun, Respiratory Rate 18 /min Jun, Temperature 97.0 degrees Fahrenheit Jun, Oximetry 95 Jun, Blood pressure systolic 107 mm Hg Jun, Blood pressure diastolic 72 mm Hg Jun, MEDICATIONS Medication SIG (Take, Route, Frequency, Duration) Notes Start Da te End Date Status Montelukast Sodium 10 MG 1 tablet Orally Once a day for 90 days Active Flonase Allergy Relief 50 MCG/ACT 1 spray in each nost ril Nasally Once a day for 30 day(s) Jun, Not-Taking Multi Complete - Orally Active Lexapro 10 MG 1 tablet Orally Once a day for 90 day(s) Active Drisdol 40029 UNIT 1 capsule Orally weekly for 30 day(s) Jul, Not-Taking Geritol LIQUID - OTC Active Cetirizine HCl 10 MG 1 tablet Orally Once a day for 90 days Active Xanax 0.5 MG 1 tablet as needed Orally three times a day (MDD:3) for 14 days Increase to 3 times a day Jun, Active NexIUM Active PROCEDURES No Information RESULTS No Results REASON FOR VISIT transfer from [facility] MEDICAL (GENERAL) HISTORY Type Description Date Medical History IBS Medical History Severe iron deficiency Medical History Anxiety Medical History Allergic rhinitis Medical History Recurrent sinusitis Surgical History 3 atround chirai surgerys 98.99.2000 Surgical History breast reduction 1998 Surgical History gastric bypass 2007.2009 Surgical History 2007 Surgical History gallbladder 2008 Surgical History T&A 1995 Surgical History bilateral Salpingectomy 2018 Hospitalization History surgeries Goals Section No Information Health Concerns No Information MEDICAL EQUIPMENT No Information MENTAL STATUS No Information FUNCTIONAL STATUS No Information ASSESSMENTS Encounter Date Diagnosis Assessment Notes Treatment Notes Treatm ent Clinical Notes Jun, Chest pain, unspecified type (ICD-10 - R07.9) History of chest pain off and on. Was told possible musculoskeletal. Seems to occur more with anxiety especially since anxiety has been worse lately. Suspect may be related to panic attacks as occurs with anxiety and impending sense of doom and sweating and nausea. Suspect patient symptoms more related to this at this time. Reassured patient and advised on monitoring for now. Patient understood. Jun, Severe anxiety (ICD-10 - F41.9) Patient has history of severe anxiety. Tearful on exam. Is on disability for this. Had come off her antidepressants several months ago. Anxiety has worsened with his recent social stressors, including COVID-19 infection. Patient would like to continue to increase medicine. Is on Lexapro 7.5 mg at this time. Discussed with patient to up to 10 mg today/tomorrow. Patient cautious against possible side effects including sweating and nausea associated with increase in dose. Cautioned patient can always call office if concerned. She notes she may call the next several days to discuss. In the meantime increase Xanax to 3 times a day as needed. Sending refill at this time. Cautioned on dependence/ adverse effects. Is establishing with behavioral health. I agree with this plan. Has appointm ent with counselor next week. We will then establish with psychiatry in the future. Discussed can always use medicine buspirone for anxiety. May consider starting if unable to get in with psychiatry for a period of time. Patient has not started medication at this time Jun, Other Reviewed istop at visit, did not docuement. Same results below. Document istop 06/25 #: [id number] /lprazolam 0.5 mg tablet 2814Grkrishna [id number] PLAN OF TREATMENT Treatment Notes Assessment Notes Clinical Notes Chest pain, unspecified type History of chest pain off and on. Was told possible musculoskeletal. Seems to occur more with anxiety especially since anxiety has been worse lately. Suspect may be related to panic attacks as occ urs with anxiety and impending sense of doom and sweating and nausea. Suspect patient symptoms more related to this at this time. Reassured patient and advised on monitoring for now. Patient understood. Severe anxiety Patient has history of severe anxiety. Tearful on exam. Is on disability for this. Had come off her antidepressants several months ago. Anxiety has worsened with his recent social stressors, including COVID-19 infection. Patient would like to continue to increase medicine. Is on Lexapro 7.5 mg at this time. Discussed with patient to up to 10 mg today/tomorrow. Patient cautious against possible side effects including sweating and nausea associated with increase in dose. Cautioned patient can always call office if concerned. She notes she may call the next several days to discuss. In the chip ntime increase Xanax to 3 times a day as needed. Sending refill at this time. Cautioned on dependence/ adverse effects.Is establishing with behavioral health. I agree with this plan. Has appointment with counselor next week. We will then establish with psychiatry in the future.Discussed can always use medicine buspirone for anxiety. May consider starting if unable to get in with psychiatry for a period of time. Patient has not started medication at this time Next Appt Details 4 weeks Reason: Provider Name:Rola Orlando, 2021-07-06 02:00:00 PM, [address] [facility], , [place], [address] Insurance Providers Payer Name Payer Address Payer Phone Insured Name Patient Relati onship to Insured Coverage Start Date Coverage End Date MEDICARE COMPLETE [employer] [address] [address] [facility] [phone] IRMA RASMUSSEN self
--- OUTSIDE RECORDS SUMMARY | 2021-08-01 09:31 | CCD ---
Author Author [facility] Organization [facility] Address Unknown Phone Unavailable Care Team Providers Care Fire Protection Fabricator Name Role Phone Velasquez, Oscar Unavailable PROBLEMS Type Condition ICD9-CM Code [id number] Code Onset Dates Condition S tatus W/U Status Risk SNOMED Code Notes Problem Irritable bowel syndrome with both constipation and diarrh ea K58.2 Active confirmed 49651763 Problem Allergic rhinitis, unspecified seasonality, unspecifie d trigger J30.9 Active confirmed 05212449 Problem Iron deficiency anemia, unspecified iron deficiency an emia type D50.9 Active confirmed 75237064 Problem Chronic sinusitis, unspecified location J32.9 Active confirmed 11012328 Problem Severe anxiety F41.9 Active confirmed 22081 007 Problem Anxiety F41.9 Active confirmed 33983936 Problem Arnold-Chiari malformation Q07.00 Active confirmed 147895805 Problem Recurrent sinusitis J32.9 Active confirmed 510212945 Problem Mixed hyperlipidemia E78.2 Active confirmed 452072355 Problem Vitamin D deficiency E55.9 Active confirmed 97924837 Problem Abnormal mammogram of left breast R92.8 Active confirmed 449486748 Problem Non-seasonal allergic rhinitis, unspecified trigger J30.89 Active confirmed 10326199 ALLERGIES No Known Allergies ENCOUNTERS from 1977 to 2021-07-28 Encounter Location Date Provider Diagnosis [facility] [id number] [place] [address] [place] [address] 11 Jul, 2021 Oscar Velasquez IMMUNIZATIONS No Information SOCIAL HISTORY Tobacco Use: Social History Observation Description Date Details (start date - stop date) Never Smoker Sex Assigned At : Social History Observation Description Sex Assigned At Unknown Education: Question Answer Notes Level of Education: College Audit Question Answer Notes Total Score: 0 Interpretation: Alcohol Education Language: Question Answer Notes Languages spoken: Rwandan Gnosticist: Question Answer Notes Gnosticist 33 None Sexual Hx: Question Answer Notes [...] REASON FOR REFERRAL No Information VITAL SIGNS No information MEDICATIONS Medication SIG (Take, Route, Frequency, Duration) Notes Start Da te End Date Status Flonase Allergy Relief 50 MCG/ACT 1 spray in each nost ril Nasally Once a day for 30 day(s) Jun, Not-Taking Geritol LIQUID - OTC Active Cetirizine HCl 10 MG 1 tablet Orally Once a day for 90 days Active NexIUM Active Montelukast Sodium 10 MG 1 tablet Orally Once a day for 90 days Active Lexapro 10 MG 1 tablet Orally Once a day for 90 day(s) Active Drisdol 19695 UNIT 1 capsule Orally weekly for 30 day(s) 1 Jul, Not-Taking Multi Complete - Orally Active Xanax 0.5 MG 1 tablet as needed Orally three times a day (MDD :3) for 7 days Jul, Active PROCEDURES No Information RESULTS No Results REASON FOR VISIT Blood [facility] MEDICAL (GENERAL) HISTORY Type Description Date Medical [...] No Information FUNCTIONAL STATUS No Information ASSESSMENTS No Information PLAN OF TREATMENT Medication Medication Name Sig Start Date Stop Date Xanax 0.5 MG 1 tablet as needed Orally three times a day (MDD:3) for 7 days Jul, Next Appt Details Provider Name:Oscar Velasquez, 2021-08-04 04:00:00 PM, [address], , [place], [address], Provider Name:Rola Orlando, 2021-08-11 01:00:00 PM, [address], , [place], [address] Insurance Providers Payer Name Payer Address Payer Phone Insured Name Patient Relati onship to Insured Coverage Start Date Coverage End Date MEDICARE COMPLETE UNITED HEALTHCARE [address] [address] [facility] [phone] IRMA RASMUSSEN self
--- OUTSIDE RECORDS SUMMARY | 2021-08-01 09:31 | CCD ---
Author Author [facility] Organization [facility] Address Unknown Phone Unavailable Care Team Providers Care Road Grader Operator Name Role Phone Oscar Velasquez Unavailable PROBLEMS Type Condition ICD9-CM Code QAA72-AF Code Onset Dates Condition S tatus W/U Status Risk SNOMED Code Notes Problem Anxiety F41.9 Active confirmed 38982447 Problem Irritable bowel syndrome with both constipation and diarrh ea K58.2 Active confirmed 64913288 Problem Allergic rhinitis, unspecified seasonality, unspecifie d trigger J30.9 Active confirmed 28826578 Problem Non-seasonal allergic rhinitis, unspecified trigger J30.89 Active confirmed 16430224 Problem Recurrent sinusitis J32.9 Active confirmed 818240983 Problem Severe anxiety F41.9 Active confirmed 63384 007 Problem Chronic sinusitis, unspecified location J32.9 Active confirmed 08884121 Problem Iron deficiency anemia, unspecified iron deficiency an emia type D50.9 Active confirmed 36181691 Problem Mixed hyperlipidemia E78.2 Active confirmed 202071603 Problem Vitamin D deficiency E55.9 Active confirmed 85533244 Problem Abnormal mammogram of left breast R92.8 Active confirmed 614028177 ALLERGIES No Known Allergies ENCOUNTERS from 1975 to 2021-07-10 Encounter Location Date Provider Diagnosis [address] [phone] [place] [address] 16 Jun, 2021 Oscar Piñaett Breast pain N64.4 IMMUNIZATIONS No Information SOCIAL HISTORY Tobacco Use: Social History Observation Description Date Details (start date - stop date) Never Smoker Sex Assigned At : Social History Observation Description Sex Assigned At Unknown Education: Question Answer Notes Level of Education: College Audit Question Answer Notes Total Score: 0 Interpretation: Alcohol Education Language: Question Answer Notes Languages spoken: Mexican Gnosticist: Question Answer Notes Gnosticist 33 None [...] a day for 90 day(s) Active Drisdol 25168 UNIT 1 capsule Orally weekly for 30 day(s) Jul, Not-Taking Xanax 0.5 MG 1 tablet as needed Orally three times a day (MDD :3) for 14 days Jun, Active Cetirizine HCl 10 MG 1 tablet Orally Once a day for 90 days Active Geritol LIQUID - OTC Active NexIUM Active PROCEDURES No Information RESULTS No Results REASON FOR VISIT referral MEDICAL (GENERAL) HISTORY Type Description Date Medical [...] Treatment Notes Treatm ent Clinical Notes Jun, Breast pain (ICD-10 - N64.4) PLAN OF TREATMENT Medication Medication Name Sig Start Date Stop Date Xanax 0.5 MG 1 tablet as needed Orally three times a day (MDD:3) for 14 days Jun, Treatment Notes Test Name Order Date [facility] DIAGNOSTIC BILATERAL MAMMO (Ultrasound if indicat ed) 2021-07-02 Next Appt Details Provider Name:Rola Orlando, 2021-07-13 02:00:00 PM, [address], , [place], [address] Provider Name:Oscar Velasquez, 2021-07-23 04:00:00 PM, [address], , [place], [address], Insurance Providers Payer Name Payer Address Payer Phone Insured Name Patient Relati onship to Insured Coverage Start Date Coverage End Date MEDICARE COMPLETE [facility] [address] [address] [facility] [id number] IRMA RASMUSSEN self
--- OUTSIDE RECORDS SUMMARY | 2021-08-01 09:31 | CCD ---
Author Author [facility] Organization [facility] Address Unknown Phone Unavailable Care Team Providers Care Contract Negotiator Name Role Phone Oscar Velasquez Unavailable PROBLEMS Type Condition ICD9-CM Code SCO50-WT Code Onset Dates Condition S tatus W/U Status Risk SNOMED Code Notes Problem Anxiety F41.9 Active confirmed 49028115 Problem Irritable bowel syndrome with both constipation and diarrh ea K58.2 Active confirmed 28641771 Problem Allergic rhinitis, unspecified seasonality, unspecifie d trigger J30.9 Active confirmed 81495453 Problem Non-seasonal allergic rhinitis, unspecified trigger J30.89 Active confirmed 39531936 Problem Recurrent sinusitis J32.9 Active confirmed 363567807 Problem Severe anxiety F41.9 Active confirmed 92379 007 Problem Chronic sinusitis, unspecified location J32.9 Active confirmed 21475651 Problem Iron deficiency anemia, unspecified iron deficiency an emia type D50.9 Active confirmed 99488696 Problem Mixed hyperlipidemia E78.2 Active confirmed 108984157 Problem Vitamin D deficiency E55.9 Active confirmed 48562092 Problem Abnormal mammogram of left breast R92.8 Active confirmed 415284294 ALLERGIES No Known Allergies ENCOUNTERS from 1975 to 2021-07-07 Encounter Location Date Provider Diagnosis [address] [phone] [place] [address] Jun, Oscar Velasquez Severe anxiety F41.9 IMMUNIZATIONS No Information SOCIAL HISTORY Tobacco Use: Social History Observation Description Date Details (start date - stop date) Never Smoker Sex Assigned At : Social History Observation Description Sex Assigned At Unknown Education: Question Answer Notes Level of Education: College Audit Question Answer Notes Total Score: 0 Interpretation: Alcohol Education Language: Question Answer Notes Languages spoken: Occitan Congregational: Question Answer Notes Congregational 33 None Sexual Hx: Question Answer Notes [...] a day for 90 day(s) Active Drisdol 42143 UNIT 1 capsule Orally weekly for 30 day(s) Jul, Not-Taking Xanax 0.5 MG 1 tablet as needed Orally three times a day (MDD :3) for 14 days Jun, Active Cetirizine HCl 10 MG 1 tablet Orally Once a day for 90 days Active Geritol LIQUID - OTC Active NexIUM Active PROCEDURES No Information RESULTS No Results REASON FOR VISIT Alprazolam refill MEDICAL (GENERAL) HISTORY Type Description Date Medical History IBS Medical History Severe iron deficiency Medical History Anxiety Medical History Allergic rhinitis Medical History Recurrent sinusitis Surgical History 3 atround chirai surgerys 98.99.2000 Surgical History breast reduction 1998 Surgical History gastric bypass 2007.2009 Surgical History 2008 Surgical History gallbladder 2008 Surgical History T&A 1995 Surgical History bilateral Salpingectomy 2018 Hospitalization History surgeries Goals Section No Information Health Concerns No Information MEDICAL EQUIPMENT No Information MENTAL STATUS No Information FUNCTIONAL STATUS No Information ASSESSMENTS Encounter Date Diagnosis Assessment Notes Treatment Notes Treatm ent Clinical Notes Jun, Severe anxiety (ICD-10 - F41.9) PLAN OF TREATMENT Medication Medication Name Sig Start Date Stop Date Xanax 0.5 MG 1 tablet as needed Orally three times a day (MDD:3) for 14 days Jun, Next Appt Details Provider Name:Rolamagali Orlando, 2021-07-13 02:00:00 PM, [address], , [place], [address] Provider Name:Oscar Velasquez, 2021-07-23 04:00:00 PM, [address], , [place], [address], Insurance Providers Payer Name Payer Address Payer Phone Insured Name Patient Relati onship to Insured Coverage Start Date Coverage End Date MEDICARE COMPLETE [facility] [address] [address] [facility] [phone] IRMA RASMUSSEN self
--- OUTSIDE RECORDS SUMMARY | 2021-08-01 09:31 | CCD ---
Author Author [facility] Organization [facility] Address Unknown Phone Unavailable Care Team Providers Care Field Operations Coordinator Name Role Phone Rola Orlando Unavailable PROBLEMS Type Condition ICD9-CM Code EJM25-CO Code Onset Dates Condition S tatus W/U Status Risk SNOMED Code Notes Problem Anxiety F41.9 Active confirmed 65783657 Problem Irritable bowel syndrome with both constipation and diarrh ea K58.2 Active confirmed 73175379 Problem Allergic rhinitis, unspecified seasonality, unspecifie d trigger J30.9 Active confirmed 95691632 Problem Non-seasonal allergic rhinitis, unspecified trigger J30.89 Active confirmed 63725877 Problem Recurrent sinusitis J32.9 Active confirmed 764848682 Problem Severe anxiety F41.9 Active confirmed 21705 007 Problem Chronic sinusitis, unspecified location J32.9 Active confirmed 76055779 Problem Iron deficiency anemia, unspecified iron deficiency an emia type D50.9 Active confirmed 98637616 Problem Mixed hyperlipidemia E78.2 Active confirmed 498391628 Problem Vitamin D deficiency E55.9 Active confirmed 33945476 Problem Abnormal mammogram of left breast R92.8 Active confirmed 752951188 ALLERGIES No Known Allergies ENCOUNTERS from 1975 to 2021-07-03 Encounter Location Date Provider Diagnosis [address] [place] [address] Jun, Rola Darion Anxiety F41.9 IMMUNIZATIONS No Information SOCIAL HISTORY Tobacco Use: Social History Observation Description Date Details (start date - stop date) Never Smoker Sex Assigned At : Social History Observation Description Sex Assigned At Unknown Education: Question Answer Notes Level of Education: College Audit Question Answer Notes Total Score: 0 Interpretation: Alcohol Education Language: Question Answer Notes Languages spoken: Mongolian Latter-Day: Question Answer Notes Latter-Day 33 None Sexual Hx: Question Answer Notes [...] a day for 90 day(s) Active Drisdol 04493 UNIT 1 capsule Orally weekly for 30 day(s) 1 Jul, Not-Taking Geritol LIQUID - OTC Active Cetirizine HCl 10 MG 1 tablet Orally Once a day for 90 days Active Xanax 0.5 MG 1 tablet as needed Orally three times a day (MDD:3) for 14 days Increase to 3 times a day Jun, Active NexIUM Active PROCEDURES No Information RESULTS No Results REASON FOR VISIT initial MEDICAL (GENERAL) HISTORY Type Description Date Medical [...] Treatment Notes Treatm ent Clinical Notes Jun, Anxiety (ICD-10 - F41.9) Irma was seen for an initial intake session. Reports symptoms have increased due to changes in medication. Scheduled for a return session 07/07/2021. PLAN OF TREATMENT Treatment Notes Assessment Notes Clinical Notes Anxiety Irma was seen for an initial intake session. Reports symptoms have increased due to changes in medication. Scheduled for a return session 07/07/2021. Next Appt Details Provider Name:Rola Orlando, 2021-07-06 02:00:00 PM, [address] [facility], , [place], [address] Provider Name:Oscar Velasquez, 2021-07-23 04:00:00 PM, [address] [facility], , [place], [address], Insurance Providers Payer Name Payer Address Payer Phone Insured Name Patient Relati onship to Insured Coverage Start Date Coverage End Date MEDICARE COMPLETE UNITED [employer] [address] [address] [facility] [phone] IRMA RASMUSSEN self
--- OUTSIDE RECORDS SUMMARY | 2021-08-01 09:31 | CCD ---
Author Author [facility] Organization [facility] Address Unknown Phone Unavailable Care Team Providers Care Hotel Houseman Name Role Phone Oscar Velasquez Unavailable PROBLEMS Type Condition ICD9-CM Code [id number] Code Onset Dates Condition S tatus W/U Status Risk SNOMED Code Notes Problem Irritable bowel syndrome with both constipation and diarrh ea K58.2 Active confirmed 75267370 Problem Allergic rhinitis, unspecified seasonality, unspecifie d trigger J30.9 Active confirmed 56141931 Problem Iron deficiency anemia, unspecified iron deficiency an emia type D50.9 Active confirmed 72856698 Problem Chronic sinusitis, unspecified location J32.9 Active confirmed 25366508 Problem Severe anxiety F41.9 Active confirmed 42929 007 Problem Anxiety F41.9 Active confirmed 27027030 Problem Arnold-Chiari malformation Q07.00 Active confirmed 412435315 Problem Recurrent sinusitis J32.9 Active confirmed 380949286 Problem Mixed hyperlipidemia E78.2 Active confirmed 910646210 Problem Vitamin D deficiency E55.9 Active confirmed 79420037 Problem Abnormal mammogram of left breast R92.8 Active confirmed 861790554 Problem Non-seasonal allergic rhinitis, unspecified trigger J30.89 Active confirmed 37320409 ALLERGIES No Known Allergies ENCOUNTERS from 1977 to 2021-07-14 Encounter Location Date Provider Diagnosis [address] [phone] [place] [address] Jun, Oscar Velasquez Arnold-Chiari malformation Q 07.00 IMMUNIZATIONS No Information SOCIAL HISTORY Tobacco Use: Social History Observation Description Date Details (start date - stop date) Never Smoker Sex Assigned At : Social History Observation Description Sex Assigned At Unknown Education: Question Answer Notes Level of Education: College Audit Question Answer Notes Total Score: 0 Interpretation: Alcohol Education Language: Question Answer Notes Languages spoken: Greek Uatsdin: Question Answer Notes Uatsdin 33 None Sexual Hx: Question Answer Notes [...] you a: never smoker REASON FOR REFERRAL from 1977 to 2021-07-14 Reason Please evaluate and treat as needed Diagnosis 1 Arnold-Chiari malformation ( Q07.00) [facility] Referring Provider First Name Oscar Referring Provider Last Name Eva Referring Provider Specialty Family [facility] Referral Priority Routine General Notes Sherry Camacho 07/14/2021 8:0 4:56 AM > Sent VITAL SIGNS No information MEDICATIONS Medication SIG [...] a day for 90 day(s) Active Drisdol 78313 UNIT 1 capsule Orally weekly for 30 day(s) 1 Jul, Not-Taking Xanax 0.5 MG 1 tablet as needed Orally three times a day (MDD :3) for 14 days Jun, Active Cetirizine HCl 10 MG 1 tablet Orally Once a day for 90 days Active Geritol LIQUID - OTC Active NexIUM Active PROCEDURES No Information RESULTS No Results REASON FOR VISIT anxiety MEDICAL (GENERAL) HISTORY Type Description Date Medical History IBS Medical History Severe iron deficiency Medical History Anxiety Medical History Allergic rhinitis Medical History Recurrent sinusitis Surgical History 3 atround chirai surgerys 98.99.2000 Surgical History breast reduction 1998 Surgical History gastric bypass 2007.2009 Surgical History 2007 Surgical History gallbladder 2007 Surgical History T&A 1995 Surgical History bilateral Salpingectomy 2018 Hospitalization History surgeries Goals Section No Information Health Concerns No Information MEDICAL EQUIPMENT No Information MENTAL STATUS No Information FUNCTIONAL STATUS No Information ASSESSMENTS Encounter Date Diagnosis Assessment Notes Treatment Notes Treatm ent Clinical Notes Jun, Arnold-Chiari malformation (ICD-10 - Q07.00) PLAN OF TREATMENT Medication Medication Name Sig Start Date Stop Date Xanax 0.5 MG 1 tablet as needed Orally three times a day (MDD:3) for 14 days Jun, Treatment Notes Test Name Order Date [facility] MRI C SPINE W/O FOLL BY WITH 2021-07-10 [facility] MRI Brain W/O FOLL BY WITH CONTRAST 2021-07-10 Referrals Referral Date Details Please evaluate and treat as needed, Neurology [facility] Next Appt Details Provider Name:Oscar Velasquez, 2021-07-23 04:00:00 PM, [address] [facility], , [place], [address], Provider Name:Rola Orlando, 2021-07-28 03:00:00 PM, [address] [facility], , [place], [address] Insurance Providers Payer Name Payer Address Payer Phone Insured Name Patient Relati onship to Insured Coverage Start Date Coverage End Date MEDICARE COMPLETE [employer] [address] [address] [facility] [id number] IRMA RASMUSSEN self
--- OUTSIDE RECORDS SUMMARY | 2021-08-01 09:31 | CCD ---
Author Author [facility] Organization [facility] Address Unknown Phone Unavailable Care Team Providers Care Crisis Worker Name Role Phone Rola Orlando Unavailable PROBLEMS Type Condition ICD9-CM Code [id number] Code Onset Dates Condition S tatus W/U Status Risk SNOMED Code Notes Problem Anxiety F41.9 Active confirmed 80524221 Problem Irritable bowel syndrome with both constipation and diarrh ea K58.2 Active confirmed 73408281 Problem Allergic rhinitis, unspecified seasonality, unspecifie d trigger J30.9 Active confirmed 86192628 Problem Non-seasonal allergic rhinitis, unspecified trigger J30.89 Active confirmed 54695979 Problem Recurrent sinusitis J32.9 Active confirmed 113188666 Problem Severe anxiety F41.9 Active confirmed 11257 007 Problem Chronic sinusitis, unspecified location J32.9 Active confirmed 77071758 Problem Iron deficiency anemia, unspecified iron deficiency an emia type D50.9 Active confirmed 83841712 Problem Mixed hyperlipidemia E78.2 Active confirmed 455998078 Problem Vitamin D deficiency E55.9 Active confirmed 00157451 Problem Abnormal mammogram of left breast R92.8 Active confirmed 254787507 ALLERGIES No Known Allergies ENCOUNTERS from 1977 to 2021-07-09 Encounter Location Date Provider Diagnosis [address] [phone] [place] [address] Jun, Rola Orlando Anxiety F41.9 IMMUNIZATIONS No Information SOCIAL HISTORY Tobacco Use: Social History Observation Description Date Details (start date - stop date) Never Smoker Sex Assigned At : Social History Observation Description Sex Assigned At Unknown Education: Question Answer Notes Level of Education: College Audit Question Answer Notes Total Score: 0 Interpretation: Alcohol Education Language: Question Answer Notes Languages spoken: Uzbek Anglican: Question Answer Notes Anglican 33 None Sexual Hx: Question Answer Notes [...] a day for 90 day(s) Active Drisdol 04715 UNIT 1 capsule Orally weekly for 30 day(s) Jul, Not-Taking Xanax 0.5 MG 1 tablet as needed Orally three times a day (MDD :3) for 14 days Jun, Active Cetirizine HCl 10 MG 1 tablet Orally Once a day for 90 days Active Geritol LIQUID - OTC Active NexIUM Active PROCEDURES No Information RESULTS No Results REASON FOR VISIT Zoom MEDICAL (GENERAL) HISTORY Type Description Date Medical [...] in medication. Scheduled for a return session 07/13/2021. PLAN OF TREATMENT Medication Medication Name Sig Start Date Stop Date Xanax 0.5 MG 1 tablet as needed Orally three times a day (MDD:3) for 14 days Jun, Treatment Notes Assessment Notes Clinical Notes Anxiety Irma was seen for an initial intake session. Reports symptoms have increased due to changes in medication. Scheduled for a return session 07/13/2021. Next Appt Details Provider Name:Rola Orlando, 2021-07-13 02:00:00 PM, [address] [facility], , [place], [address] Provider Name:Oscar Velasquez, 2021-07-23 04:00:00 PM, [address] [facility], , [place], [address], Insurance Providers Payer Name Payer Address Payer Phone Insured Name Patient Relati onship to Insured Coverage Start Date Coverage End Date MEDICARE COMPLETE [facility] [address] [address] [facility] [id number] IRMA RASMUSSEN self
--- OUTSIDE RECORDS SUMMARY | 2021-08-01 09:31 | CCD ---
Author Author [facility] Organization [facility] Address Unknown Phone Unavailable Care Team Providers Care Games Manager Name Role Phone OrlandoRola Unavailable PROBLEMS Type Condition ICD9-CM Code [id number] Code Onset Dates Condition S tatus W/U Status Risk SNOMED Code Notes Problem Irritable bowel syndrome with both constipation and diarrh ea K58.2 Active confirmed 37533188 Problem Allergic rhinitis, unspecified seasonality, unspecifie d trigger J30.9 Active confirmed 84070368 Problem Iron deficiency anemia, unspecified iron deficiency an emia type D50.9 Active confirmed 71251190 Problem Chronic sinusitis, unspecified location J32.9 Active confirmed 10242814 Problem Severe anxiety F41.9 Active confirmed 12329 007 Problem Anxiety F41.9 Active confirmed 75038746 Problem Arnold-Chiari malformation Q07.00 Active confirmed 102984126 Problem Recurrent sinusitis J32.9 Active confirmed 706359911 Problem Mixed hyperlipidemia E78.2 Active confirmed 301271922 Problem Vitamin D deficiency E55.9 Active confirmed 08571056 Problem Abnormal mammogram of left breast R92.8 Active confirmed 988895133 Problem Non-seasonal allergic rhinitis, unspecified trigger J30.89 Active confirmed 02529259 ALLERGIES No Known Allergies ENCOUNTERS from 1977 to 2021-07-30 Encounter Location Date Provider Diagnosis [address] [place] [address] Jul, Rola Orlando Severe anxiety F41.9 IMMUNIZATIONS No Information SOCIAL HISTORY Tobacco Use: Social History Observation Description Date Details (start date - stop date) Never Smoker Sex Assigned At : Social History Observation Description Sex Assigned At Unknown Education: Question Answer Notes Level of Education: College Audit Question Answer Notes Total Score: 0 Interpretation: Alcohol Education Language: Question Answer Notes Languages spoken: Mauritian Baptist: Question Answer Notes Baptist 33 None Sexual Hx: Question Answer Notes [...] a day for 90 day(s) Active Drisdol 70233 UNIT 1 capsule Orally weekly for 30 [...] Notes Treatment Notes Treatm ent Clinical Notes Jul, Severe anxiety (ICD-10 - F41.9) Irma was seen for an initial intake session. Reports improvement in mood. Scheduled for a return session 08/11/2021. PLAN OF TREATMENT Medication Medication Name Sig Start Date Stop Date Xanax 0.5 MG 1 tablet as needed Orally three times a day (MDD:3) for 7 days Jul, Treatment Notes Assessment Notes Clinical Notes Severe anxiety Irma was seen for an initial intake session. Reports improvement in mood. Scheduled for a return session 08/11/2021. Next Appt Details Provider Name:Oscar Velasquez, 2021-08-04 04:00:00 PM, [address] [facility], , [place], [address], Provider Name:Rola Darion, 2021-08-11 01:00:00 PM, [address] [facility], , [place], [address] Insurance Providers Payer Name Payer Address Payer Phone Insured Name Patient Relati onship to Insured Coverage Start Date Coverage End Date MEDICARE COMPLETE [facility] [address] [address] [facility] [phone] IRMA RASMUSSEN self
--- OUTSIDE RECORDS SUMMARY | 2021-08-01 09:31 | CCD ---
Author Author [facility] Organization [facility] Address Unknown Phone Unavailable Care Team Providers Care Generalist Name Role Phone VelasquezOscar dugan Unavailable PROBLEMS Type Condition ICD9-CM Code [id number] Code Onset Dates Condition S tatus W/U Status Risk SNOMED Code Notes Problem Irritable bowel syndrome with both constipation and diarrh ea K58.2 Active confirmed 37119157 Problem Allergic rhinitis, unspecified seasonality, unspecifie d trigger J30.9 Active confirmed 20898260 Problem Iron deficiency anemia, unspecified iron deficiency an emia type D50.9 Active confirmed 07849005 Problem Chronic sinusitis, unspecified location J32.9 Active confirmed 29751667 Problem Severe anxiety F41.9 Active confirmed 63495 007 Problem Anxiety F41.9 Active confirmed 82685549 Problem Arnold-Chiari malformation Q07.00 Active confirmed 023926369 Problem Recurrent sinusitis J32.9 Active confirmed 690343652 Problem Mixed hyperlipidemia E78.2 Active confirmed 438934208 Problem Vitamin D deficiency E55.9 Active confirmed 77646389 Problem Abnormal mammogram of left breast R92.8 Active confirmed 839959115 Problem Non-seasonal allergic rhinitis, unspecified trigger J30.89 Active confirmed 26895096 ALLERGIES No Known Allergies ENCOUNTERS from 1977 to 2021-07-28 Encounter Location Date Provider Diagnosis [facility] [id number] [place] [address] [place] [address] 07 Jul, 2021 Oscar Velasquez Allergic rhinitis, unspecifi ed seasonality, unspecified trigger J30.9 and Anxiety F41.9 IMMUNIZATIONS No Information SOCIAL HISTORY Tobacco Use: Social History Observation Description Date Details (start date - stop date) Never Smoker Sex Assigned At : Social History Observation Description Sex Assigned At Unknown Education: Question Answer Notes Level of Education: College Audit Question Answer Notes Total Score: 0 Interpretation: Alcohol Education Language: Question Answer Notes Languages spoken: Belgian Sabianist: Question Answer Notes Sabianist 33 None Sexual Hx: Question Answer Notes [...] FOR REFERRAL No Information VITAL SIGNS Weight 183 lbs Jul, Weight-kg 83.01 kg Jul, Height 62 in Jul, BMI 33.47 kg/m2 Jul, Heart Rate 71 /min Jul, Respiratory Rate 18 /min Jul, Temperature 97.9 degrees Fahrenheit Jul, Oximetry 97 Jul, Blood pressure systolic 102 mm Hg Jul, Blood pressure diastolic 66 mm Hg Jul, MEDICATIONS Medication SIG (Take, Route, Frequency, Duration) [...] a day for 90 day(s) Active Drisdol 65863 UNIT 1 capsule Orally weekly for 30 day(s) 1 Jul, Not-Taking Multi Complete - Orally Active Xanax 0.5 MG 1 tablet as needed Orally three times a day (MDD :3) for 7 days Jul, Active PROCEDURES No Information RESULTS No Results REASON FOR VISIT follow up MEDICAL (GENERAL) HISTORY Type Description Date Medical History IBS Medical History Severe iron deficiency Medical History Anxiety Medical History Allergic rhinitis Medical History Recurrent sinusitis Surgical History 3 atround chirai surgerys 98.99.1999 Surgical History breast reduction 1998 Surgical History gastric bypass 2007.2009 Surgical History 2007 Surgical History gallbladder 2007 Surgical History T&A 1995 Surgical History bilateral Salpingectomy 2018 Hospitalization History surgeries Goals Section No Information Health Concerns No Information MEDICAL EQUIPMENT No Information MENTAL STATUS No Information FUNCTIONAL STATUS No Information ASSESSMENTS Encounter Date Diagnosis Assessment Notes Treatment Notes Treatm ent Clinical Notes Jul, Anxiety (ICD-10 - F41.9) Anxiety has improved overall now that on Lexapro daily. Has appointment with pyschiatry next week. Sending in course refill of xanax to cover in case needed. Patient report only using if absolutely needed. Not using more than prescribed. On 10 mg Lexapro daily. Is may be interested in hydroxyzizine in the future. Discussed with patient to see what pyschiatry notes. Patient understood. Has history of anxiety. On disability for this. Had stopped medication several months ago. Had covid 19 about a month ago, this made anxiety worse. Patient restarted lexapro after. Patient had some difficult time initiating this medication which she remembers having previously. Jul, Allergic rhinitis, unspecifi ed seasonality, unspecified trigger (ICD-10 - J30.9) Noted ear fullness bilaterally. No sign of ear infection. Had this prior. Is using flonase now, was cautious before. Noted this will likely help with fluid behind ears bilaterally. If does not improve several weeks call office. Patient understood. Jul, Other #: [id number] /lprazolam 0.5 mg tablet [id number] griffith [id number] PLAN OF TREATMENT Medication Medication Name Sig Start Date Stop Date Xanax 0.5 MG 1 tablet as needed Orally three times a day (MDD:3) for 7 days Jul, Treatment Notes Assessment Notes Clinical Notes Anxiety Anxiety has improved overall now that on Lexapro daily. Has appointment with pyschiatry next week. Sending in course refill of xanax to cover in case needed. Patient report only using if absolutely needed. Not using more than prescribed. On 10 mg Lexapro daily.Is may be interested in hydroxyzizine in the future. Discussed with patient to see what pyschiatry notes. Patient understood.Has history of anxiety. On disability for this. Had stopped medication several months ago. Had covid 19 about a month ago, this made anxiety worse. Patient restarted lexapro after. Patient had some difficult time initiating this medication which she remembers having previously. Allergic rhinitis, unspecified seasonality, unspecified trig clint Noted ear fullness bilaterally. No sign of ear infection. Had this prior. Is using flonase now, was cautious before. Noted this will likely help with fluid behind ears bilaterally. If does not improve several weeks call office. Patient understood. Next Appt Details 6 mth Reason: Provider Name:Oscar Velasquez, 2021-08-04 04:00:00 PM, [address] [facility], , [place], [address], Provider Name:Rola Darion, 2021-08-11 01:00:00 PM, [address] [facility], , [place], [address] Insurance Providers Payer Name Payer Address Payer Phone Insured Name Patient Relati onship to Insured Coverage Start Date Coverage End Date MEDICARE COMPLETE [facility] [address] [address] [facility] [id number] IRAM RASMUSSEN self
--- OUTSIDE RECORDS SUMMARY | 2021-08-01 09:31 | CCD ---
Author Author [facility] Organization [facility] Address Unknown Phone Unavailable Care Team Providers Care Station Mechanic Name Role Phone OrlandoRola Unavailable PROBLEMS Type Condition ICD9-CM Code [id number] Code Onset Dates Condition S tatus W/U Status Risk SNOMED Code Notes Problem Irritable bowel syndrome with both constipation and diarrh ea K58.2 Active confirmed 04656379 Problem Allergic rhinitis, unspecified seasonality, unspecifie d trigger J30.9 Active confirmed 70806670 Problem Iron deficiency anemia, unspecified iron deficiency an emia type D50.9 Active confirmed 22928203 Problem Chronic sinusitis, unspecified location J32.9 Active confirmed 73689579 Problem Severe anxiety F41.9 Active confirmed 02707 007 Problem Anxiety F41.9 Active confirmed 16410404 Problem Arnold-Chiari malformation Q07.00 Active confirmed 980026466 Problem Recurrent sinusitis J32.9 Active confirmed 034096037 Problem Mixed hyperlipidemia E78.2 Active confirmed 085453498 Problem Vitamin D deficiency E55.9 Active confirmed 32011718 Problem Abnormal mammogram of left breast R92.8 Active confirmed 828854285 Problem Non-seasonal allergic rhinitis, unspecified trigger J30.89 Active confirmed 73152143 ALLERGIES No Known Allergies ENCOUNTERS from 1977 to 2021-07-14 Encounter Location Date Provider Diagnosis [address] [place] [address] Jun, Rola Orlando Anxiety F41.9 IMMUNIZATIONS No Information SOCIAL HISTORY Tobacco Use: Social History Observation Description Date Details (start date - stop date) Never Smoker Sex Assigned At : Social History Observation Description Sex Assigned At Unknown Education: Question Answer Notes Level of Education: College Audit Question Answer Notes Total Score: 0 Interpretation: Alcohol Education Language: Question Answer Notes Languages spoken: Turkmen Moravian: Question Answer Notes Moravian 33 None Sexual Hx: Question Answer Notes [...] a day for 90 day(s) Active Drisdol 52023 UNIT 1 capsule Orally weekly for 30 day(s) 1 Jul, Not-Taking Xanax 0.5 MG 1 tablet as needed Orally three times a day (MDD :3) for 14 days Jun, Active Cetirizine HCl 10 MG 1 tablet Orally Once a day for 90 days Active Geritol LIQUID - OTC Active NexIUM Active PROCEDURES No Information RESULTS No Results REASON FOR VISIT FU MEDICAL (GENERAL) HISTORY Type Description Date Medical History IBS Medical History Severe iron deficiency Medical History Anxiety Medical History Allergic rhinitis Medical History Recurrent sinusitis Surgical History 3 atround chirai surgerys 98.99.2000 Surgical History breast reduction 1998 Surgical History gastric bypass 2007.2009 Surgical History 2007 Surgical History gallbladder 2008 Surgical History T&A 1995 Surgical History bilateral Salpingectomy 2017 Hospitalization History surgeries Goals Section No Information Health Concerns No Information MEDICAL EQUIPMENT No Information MENTAL STATUS No Information FUNCTIONAL STATUS No Information ASSESSMENTS Encounter Date Diagnosis Assessment Notes Treatment Notes Treatm ent Clinical Notes Jun, Anxiety (ICD-10 - F41.9) Irma was seen for an initial intake session. Reports improvement in mood. Scheduled for a return session 07/28/2021. PLAN OF TREATMENT Medication Medication Name Sig Start Date Stop Date Xanax 0.5 MG 1 tablet as needed Orally three times a day (MDD:3) for 14 days Jun, Treatment Notes Assessment Notes Clinical Notes Anxiety Irma was seen for an initial intake session. Reports improvement in mood. Scheduled for a return session 07/28/2021. Next Appt Details Provider Name:Oscar Rivera Velasquez, 2021-07-23 04:00:00 PM, [address] [facility], , [place], [address], Provider Name:Rola Darion, 2021-07-28 03:00:00 PM, [address] [facility], , [place], [address] Insurance Providers Payer Name Payer Address Payer Phone Insured Name Patient Relati onship to Insured Coverage Start Date Coverage End Date MEDICARE COMPLETE [facility] [address] [address] [facility] [id number] IRMA RASMUSSEN self
--- OUTSIDE RECORDS SUMMARY | 2021-08-01 09:31 | CCD ---
Author Author [facility] Organization [facility] Address Unknown Phone Unavailable Care Team Providers Care Core Stacker Name Role Phone Velasquez, Oscar Unavailable PROBLEMS Type Condition ICD9-CM Code [id number] Code Onset Dates Condition S tatus W/U Status Risk SNOMED Code Notes Problem Irritable bowel syndrome with both constipation and diarrh ea K58.2 Active confirmed 53757641 Problem Allergic rhinitis, unspecified seasonality, unspecifie d trigger J30.9 Active confirmed 43579786 Problem Iron deficiency anemia, unspecified iron deficiency an emia type D50.9 Active confirmed 79745012 Problem Chronic sinusitis, unspecified location J32.9 Active confirmed 55379986 Problem Severe anxiety F41.9 Active confirmed 36166 007 Problem Anxiety F41.9 Active confirmed 99974045 Problem Arnold-Chiari malformation Q07.00 Active confirmed 692072187 Problem Recurrent sinusitis J32.9 Active confirmed 126802319 Problem Mixed hyperlipidemia E78.2 Active confirmed 653134290 Problem Vitamin D deficiency E55.9 Active confirmed 93152400 Problem Abnormal mammogram of left breast R92.8 Active confirmed 531885928 Problem Non-seasonal allergic rhinitis, unspecified trigger J30.89 Active confirmed 25882108 ALLERGIES No Known Allergies ENCOUNTERS from 1975 to 2021-07-14 Encounter Location Date Provider Diagnosis [facility] [id number] [place] [address] [place] [address] 15 Jun, 2021 Oscar Velasquez Anxiety F41.9 and Jaw pain R 68.84 IMMUNIZATIONS No Information SOCIAL HISTORY Tobacco Use: Social History Observation Description Date Details (start date - stop date) Never Smoker Sex Assigned At : Social History Observation Description Sex Assigned At Unknown Education: Question Answer Notes Level of Education: College Audit Question Answer Notes Total Score: 0 Interpretation: Alcohol Education Language: Question Answer Notes Languages spoken: Bulgarian Samaritan: Question Answer Notes Samaritan 33 None Sexual Hx: Question Answer Notes [...] FOR REFERRAL No Information VITAL SIGNS Weight 186 lbs Jun, Weight-kg 84.37 kg Jun, Height 62 in Jun, BMI 34.02 kg/m2 Jun, Heart Rate 78 /min Jun, Respiratory Rate 17 /min Jun, Temperature 97.5 degrees Fahrenheit Jun, Oximetry 98 Jun, Blood pressure systolic 95 mm Hg Jun, Blood pressure diastolic 65 mm Hg Jun, MEDICATIONS Medication SIG (Take, [...] a day for 90 day(s) Active Drisdol 25622 UNIT 1 capsule Orally weekly for 30 day(s) Jul, Not-Taking Xanax 0.5 MG 1 tablet as needed Orally three times a day (MDD :3) for 14 days Jun, Active Cetirizine HCl 10 MG 1 tablet Orally Once a day for 90 days Active Geritol LIQUID - OTC Active NexIUM Active PROCEDURES No Information RESULTS No Results REASON FOR VISIT [facility] ER visit- chest pain MEDICAL (GENERAL) HISTORY Type Description Date Medical [...] Clinical Notes Jun, Anxiety (ICD-10 - F41.9) Patient has severe anxiety. Is on disability for this. At previous visit noted she was off lexapro for an extended period of time. If anxious that her symptoms are related to medication. Again reiterated that likely due to anxiety. To continue to take medication. Urged to follow up with pyschiatry when she can. Jun, Jaw pain (ICD-10 - R68.84) No sign of ear infection. No sign of jaw discomfort on exam. Monitor for now. Again likely related to severe anxiety. PLAN OF TREATMENT Medication Medication Name Sig Start Date Stop Date Xanax 0.5 MG 1 tablet as needed Orally three times a day (MDD:3) for 14 days Jun, Treatment Notes Assessment Notes Clinical Notes Anxiety Patient has severe a nxiety. Is on disability for this. At previous visit noted she was off lexapro for an extended period of time. If anxious that her symptoms are related to medication. Again reiterated that likely due to anxiety. To continue to take medication. Urged to follow up with pyschiatry when she can. Jaw pain No sign of ear infec tion. No sign of jaw discomfort on exam. Monitor for now. Again likely related to severe anxiety. Next Appt Details 1 mth Reason: Provider Name:Oscar Velasquez, 2021-07-23 04:00:00 PM, [address] [facility], , [place], [address], Provider Name:Rola Orlando, 2021-07-28 03:00:00 PM, [address] [facility], , [place], [address] Insurance Providers Payer Name Payer Address Payer Phone Insured Name Patient Relati onship to Insured Coverage Start Date Coverage End Date MEDICARE COMPLETE [employer] [address] [address] [facility] [id number] IRMA RASMUSSEN
--- OUTSIDE RECORDS SUMMARY | 2021-08-01 09:32 | CCD ---
Author Author [facility] Organization [facility] Address Unknown Phone Unavailable Care Team Providers Care Software Design Manager Name Role Phone Shahzad Emilie Unavailable PROBLEMS Type Condition ICD9-CM Code [id number] Code Onset Dates Condition S tatus W/U Status Risk SNOMED Code Notes Problem Recurrent sinusitis J32.9 Active confirmed 943553557 Problem Anxiety F41.9 Active confirmed 21286617 Problem Irritable bowel syndrome with both constipation and diarrh ea K58.2 Active confirmed 26499472 Problem Abnormal mammogram of left breast R92.8 Active confirmed 238695080 Problem Chronic sinusitis, unspecified location J32.9 Active confirmed 36100370 Problem Non-seasonal allergic rhinitis, unspecified trigger J30.89 Active confirmed 64244654 Problem Allergic rhinitis, unspecified seasonality, unspecifie d trigger J30.9 Active confirmed 33461198 Problem Iron deficiency anemia, unspecified iron deficiency an emia type D50.9 Active confirmed 48776268 Problem Mixed hyperlipidemia E78.2 Active confirmed 375884560 Problem Vitamin D deficiency E55.9 Active confirmed 37997072 ALLERGIES No Known Allergies ENCOUNTERS from 1977 to 2021-06-17 Encounter Location Date Provider Diagnosis [address] [phone] [place] [address] May, Emilie Pike Anxiety F41.9 IMMUNIZATIONS No Information SOCIAL HISTORY Tobacco Use: Social History Observation Description Date Details (start date - stop date) Never Smoker Sex Assigned At : Social History Observation Description Sex Assigned At Unknown Education: Question Answer Notes Level of Education: College Audit Question Answer Notes Total Score: 0 Interpretation: Alcohol Education Language: Question Answer Notes Languages spoken: Japanese Samaritan: Question Answer Notes Samaritan 33 None Sexual Hx: Question Answer Notes Had sex in the last 12 months (vaginal, oral, or anal)? Yes Have you ever had an STD? No Prevention Strategies discussed: Other with Men only Use protection? No Drug and Alcohol Question Answer Notes Total Score: 0 Interpretation: No problems reported Alcohol Screening: Question Answer Notes Did you have a drink containing alcohol in the past year? No Points 0 Interpretation Negative Tobacco Use: Question Answer Notes Are you a: never smoker REASON FOR REFERRAL No Information VITAL SIGNS No information MEDICATIONS Medication SIG (Take, Route, Frequency, Duration) Notes Start Da te End Date Status Multi Complete - Orally Active Cetirizine HCl 10 MG 1 tablet Orally Once a day for 90 days Active Montelukast Sodium 10 MG 1 tablet Orally Once a day for 90 days Active NexIUM Active Lexapro 10 MG 1 tablet Orally Once a day for 90 day(s) Active Xanax 0.5 MG 1 tablet as needed Orally bid (MDD;2) for 14 days May, Active Drisdol 63574 UNIT 1 capsule Orally weekly for 30 day(s) 1 Jul, Not-Taking PROCEDURES No Information RESULTS No Results REASON FOR VISIT Xanax refill MEDICAL (GENERAL) HISTORY Type Description Date Medical History IBS Medical History Severe iron deficiency Medical History Anxiety Medical History Allergic rhinitis Medical History Recurrent sinusitis Surgical History 3 atround chirai surgerys 98.99.2000 Surgical History breast reduction 1998 Surgical History gastric bypass 2007.2009 Surgical History 2008 Surgical History gallbladder 2007 Surgical History T&A 1995 Surgical History bilateral Salpingectomy 2018 Hospitalization History surgeries Goals Section No Information Health Concerns No Information MEDICAL EQUIPMENT No Information MENTAL STATUS No Information FUNCTIONAL STATUS No Information ASSESSMENTS Encounter Date Diagnosis Assessment Notes Treatment Notes Treatm ent Clinical Notes May, Anxiety (ICD-10 - F41.9) PLAN OF TREATMENT Medication Medication Name Sig Start Date Stop Date Xanax 0.5 MG 1 tablet as needed Orally bid (MDD;2) for 14 day s May, Lexapro 10 MG 1 tablet Orally Once a day for 90 day(s) Cetirizine HCl 10 MG 1 tablet Orally Once a day for 90 days Montelukast Sodium 10 MG 1 tablet Orally Once a day for 90 days Insurance Providers Payer Name Payer Address Payer Phone Insured Name Patient Relati onship to Insured Coverage Start Date Coverage End Date MEDICARE COMPLETE [facility] [address] [address] [facility] [id number] IRMA RASMUSSEN self
--- OUTSIDE RECORDS SUMMARY | 2021-08-01 09:32 | CCD ---
Author Author [facility] Organization [facility] Address Unknown Phone Unavailable Care Team Providers Care Senior Courtroom Clerk Name Role Phone Blanca Bose Unavailable PROBLEMS Type Condition ICD9-CM Code [id number] Code Onset Dates Condition S tatus W/U Status Risk SNOMED Code Notes Problem Recurrent sinusitis J32.9 Active confirmed 232729938 Problem Anxiety F41.9 Active confirmed 00198389 Problem Irritable bowel syndrome with both constipation and diarrh ea K58.2 Active confirmed 74981726 Problem Abnormal mammogram of left breast R92.8 Active confirmed 509831468 Problem Chronic sinusitis, unspecified location J32.9 Active confirmed 33833120 Problem Non-seasonal allergic rhinitis, unspecified trigger J30.89 Active confirmed 38807031 Problem Allergic rhinitis, unspecified seasonality, unspecifie d trigger J30.9 Active confirmed 68882797 Problem Iron deficiency anemia, unspecified iron deficiency an emia type D50.9 Active confirmed 18310497 Problem Mixed hyperlipidemia E78.2 Active confirmed 616858364 Problem Vitamin D deficiency E55.9 Active confirmed 00535572 ALLERGIES No Known Allergies ENCOUNTERS from 1977 to 2021-06-23 Encounter Location Date Provider Diagnosis [address] [phone] [place] [address] Jun, Blanca Bose Sinus congestion R09.81 and Anxiety F41.9 IMMUNIZATIONS No Information SOCIAL HISTORY Tobacco Use: Social History Observation Description Date Details (start date - stop date) Never Smoker Sex Assigned At : Social History Observation Description Sex Assigned At Unknown Education: Question Answer Notes Level of Education: College Audit Question Answer Notes Total Score: 0 Interpretation: Alcohol Education Language: Question Answer Notes Languages spoken: Italian Anabaptist: Question Answer Notes Anabaptist 33 None Sexual Hx: Question Answer Notes [...] smoker REASON FOR REFERRAL from 1977 to 2021-06-23 Reason anxiety Diagnosis 1 Anxiety (F41.9) Referral Organization [facility] Referring Provider First Name Blanca Referring Provider Last Name Lidya Referring Provider Specialty Family Medicine Referred Provider Behavioral,Health [facility] Referred Provider Specialty Psychiatry Referral Priority Routine General Notes Blanca Bose 06/18/2021 4:37:00 PM > Referral faxed. VITAL SIGNS Weight 187.4 lbs Jun, Weight-kg 85 kg Jun, Height 62 in Jun, BMI 34.27 kg/m2 Jun, Heart Rate 95 /min Jun, Respiratory Rate 17 /min Jun, Temperature 97.1 degrees Fahrenheit Jun, Oximetry 96 Jun, Blood pressure systolic 119 mm Hg Jun, Blood pressure diastolic 73 mm Hg Jun, MEDICATIONS Medication SIG (Take, Route, Frequency, Duration) Notes Start Da te End Date Status NexIUM Active Drisdol 94573 UNIT 1 capsule Orally weekly for 30 day(s) Jul, Not-Taking Xanax 0.5 MG 1 tablet as needed Orally bid (MDD;2) for 14 days May, Active Lexapro 10 MG 1 tablet Orally Once a day for 90 day(s) Active Flonase Allergy Relief 50 MCG/ACT 1 spray in each nost ril Nasally Once a day for 30 day(s) Jun, Active Cetirizine HCl 10 MG 1 tablet Orally Once a day for 90 days Active Montelukast Sodium 10 MG 1 tablet Orally Once a day for 90 days Active Multi Complete - Orally Active PROCEDURES No Information RESULTS No Results REASON FOR VISIT SEE T/E FOR REFERENCE MEDICAL (GENERAL) HISTORY Type Description Date Medical [...] Treatment Notes Treatm ent Clinical Notes Jun, Sinus congestion (ICD-10 - R09.81) Patient with ongoing sinus congestion and post nasal drip causing cough. Bloody sputum likely from sinuses not lungs. Discussed supportive care and f/u with PCP in 1-2 weeks if not improving. ER for new or worsening sxs. Patient educated on diagnosis, medications, treatments, and expected outcomes. Patient educated on risks, SE/AE, benefits, alternatives of regimen. Discussed emergent signs and symptoms and to seek emergency medical attention if they occur. Patient voiced understanding and had all questions answered. Jun, Anxiety (ICD-10 - F41.9) Uncontrolled secondary to acute illness. Patient currently being managed by PCP but requests referral to psych. Referral placed. ER for new or worsening sxs. PLAN OF TREATMENT Medication Medication Name Sig Start Date Stop Date Flonase Allergy Relief 50 MCG/ACT 1 spray in each nost ril Nasally Once a day for 30 day(s) Jun, Treatment Notes Assessment Notes Clinical Notes Sinus congestion Patient with ongoing sinus c ongestion and post nasal drip causing cough. Bloody sputum likely from sinuses not lungs. Discussed supportive care and f/u with PCP in 1-2 weeks if not improving. ER for new or worsening sxs. Patient educated on diagnosis, medicatio ns, treatments, and expected outcomes. Patient educated on risks, SE/AE, benefits, alternatives of regimen. Discussed emergent signs and symptoms and to seek emergency medical attention if they occur. Patient voiced understanding and had all questions answered. Anxiety Uncontrolled secondary to ac [place] illness. Patient currently being managed by PCP but requests referral to psych. Referral placed. ER for new or worsening sxs. Referrals Referral Date Details anxiety, [facility] Next Appt Details Provider Name:Oscar Velasquez, 2021-06-24 04:00:00 PM, [address] [facility], , [place], [address], Provider Name:Rola Orlando, 2021-06-30 11:00:00 AM, [address] [facility], , [place], [address] Insurance Providers Payer Name Payer Address Payer Phone Insured Name Patient Relati onship to Insured Coverage Start Date Coverage End Date MEDICARE COMPLETE [facility] [address] [address] [facility] [id number] IRMA RASMUSSEN self
--- OUTSIDE RECORDS SUMMARY | 2021-08-01 09:32 | CCD ---
Author Author [facility] Organization [facility] Address Unknown Phone Unavailable Care Team Providers Care Application Performance Engineer Name Role Phone Shahzad Emilie Unavailable PROBLEMS Type Condition ICD9-CM Code [id number]-OX Code Onset Dates Condition S tatus W/U Status Risk SNOMED Code Notes Problem Recurrent sinusitis J32.9 Active confirmed 597317402 Problem Anxiety F41.9 Active confirmed 68905246 Problem Irritable bowel syndrome with both constipation and diarrh ea K58.2 Active confirmed 48212870 Problem Abnormal mammogram of left breast R92.8 Active confirmed 829845117 Problem Chronic sinusitis, unspecified location J32.9 Active confirmed 46397860 Problem Non-seasonal allergic rhinitis, unspecified trigger J30.89 Active confirmed 02875169 Problem Allergic rhinitis, unspecified seasonality, unspecifie d trigger J30.9 Active confirmed 71042203 Problem Iron deficiency anemia, unspecified iron deficiency an emia type D50.9 Active confirmed 15002340 Problem Mixed hyperlipidemia E78.2 Active confirmed 247737523 Problem Vitamin D deficiency E55.9 Active confirmed 29477125 ALLERGIES No Known Allergies ENCOUNTERS from 1977 to 2021-05-22 Encounter Location Date Provider Diagnosis [address] [phone] [place] [address] May, Emilie Pike Anxiety F41.9 IMMUNIZATIONS No Information SOCIAL HISTORY Tobacco Use: Social History Observation Description Date Details (start date - stop date) Never Smoker Sex Assigned At : Social History Observation Description Sex Assigned At Unknown Education: Question Answer Notes Level of Education: College Audit Question Answer Notes Total Score: 0 Interpretation: Alcohol Education Language: Question Answer Notes Languages spoken: Faroese Religious: Question Answer Notes Religious 33 None Sexual Hx: Question Answer Notes [...] Date Status Multi Complete - Orally Active Xanax 0.5 MG 1 tablet as needed Orally bid (MDD;2) for 14 days May, Active Cetirizine HCl 10 MG 1 tablet Orally Once a day for 90 days Active NexIUM Active Lexapro 10 MG 1 tablet Orally Once a day for 90 day(s) Active Montelukast Sodium 10 MG 1 tablet Orally Once a day for 90 days Active Drisdol 33955 UNIT 1 capsule Orally weekly for 30 [...] Medication Name Sig Start Date Stop Date Montelukast Sodium 10 MG 1 tablet Orally Once a day for 90 days Lexapro 10 MG 1 tablet Orally Once a day for 90 day(s) Xanax 0.5 MG 1 tablet as needed Orally bid (MDD;2) for 14 day s May, Cetirizine HCl 10 MG 1 tablet Orally Once a day for 90 days Insurance Providers Payer Name Payer Address Payer Phone Insured Name Patient Relati onship to Insured Coverage Start Date Coverage End Date MEDICARE COMPLETE [facility] [address] [address] [facility] [id number] IRMA RASMUSSEN self
--- OUTSIDE RECORDS SUMMARY | 2021-08-01 09:32 | CCD ---
Author Author [facility] Organization [facility] Address Unknown Phone Unavailable Support Name Relationship Address Phone Eneida Sanchez DDS Next Of Kin [address] [place], [place] [phone] CHRISMiguel PLATA Next Of Kin [address] [address] DISABLED Next Of Kin Unknown Unavailable UE Next Of Kin Unknown Unavailable UN Next Of Kin Unknown Unavailable HOMEMAKER Next Of Kin Unknown Unavailable Miguel RASMUSSEN Next Of Kin [address] [place] [address] TENA TRIPP [place] [address] CHRISMIKKI PLATA ECON [address] [address] Unavailable IRMA RASMUSSEN ECON [address] [place] [phone] Re-disclosure Warning The records that you are about to access may contain information from federally-assisted alcohol or drug abuse programs. If such information is present, then the following federally mandated warning applies: This information has been disclosed to you from records protected by federal confidentiality rules (42 CFR part 2). The federal rules prohibit you from making any further disclosure of this information unless further disclosure is expressly permitted by the written consent of the person to whom it pertains or as otherwise permitted by 42 CFR part 2. A general authorization for the release of medical or other information is NOT sufficient for this purpose. The Federal rules restrict any use of the information to criminally investigate or prosecute any alcohol or drug abuse patient.The records that you are about to access may contain highly sensitive health information, the redisclosure of which is protected by Article 27-F of the [facility] Public Health law. If you continue you may have access to information: Regarding HIV / AIDS; Provided by facilities licensed or operated by the [facility] Office of Mental Health; or Provided by the [facility] Office for People With Developmental Disabilities. If such information is present, then the following [facility] mandated warning applies: This information has been disclosed to you from confidential records which are protected by state law. State law prohibits you from making any further disclosure of this information without the specific written consent of the person to whom it pertains, or as otherwise permitted by law. Any unauthorized further disclosure in violation of state law may result in a fine or group home sentence or both. A general authorization for the release of medical or other information is NOT sufficient authorization for further disc losure. Family History Family Member Name Family Member Gender Family Member Status Date o f Status Description Data Source(s) Unknown Unknown Problem MEDENT ([facility], ) Encounters Encounter Providers Location Date Indications Data Source(s ) (TV_Virtual) Virtual Enc [facility] Health Visit [address] [place] [address] 07/28/2021 12:00:00 AM EDT eCW1 ([facility]) Unknown [address] [facility] [address] 07/27/2021 12:00:00 AM EDT eCW1 ([facility]) Outpatient [address] [facility] [address] 07/23/2021 12:00:00 AM EDT eCW1 ([facility]) (TV_Virtual) Virtual Enc [facility] Health Visit [address] [place] [address] 07/13/2021 12:00:00 AM EDT eCW1 ([facility]) Unknown [address] [facility] [address] 07/10/2021 12:00:00 AM EDT eCW1 ([facility]) Unknown [address] [facility] [address] 07/07/2021 12:00:00 AM EDT eCW1 ([facility]) (TV_Virtual) Virtual Enc Tel Health Visit [address] [place] [address] 07/06/2021 12:00:00 AM EDT eCW1 ([facility]) Unknown [address] [facility] [address] 07/02/2021 12:00:00 AM EDT eCW1 ([facility]) [place] [address] [facility] [address] 07/01/2021 12:00:00 AM EDT eCW1 ([facility]) ([facility]) [facility] Scheduled Visit [address] [place] [address] 06/30/2021 12:00:00 AM EDT eCW1 ([facility]) Outpatient [address] [facility] [address] 06/24/2021 12:00:00 AM EDT eCW1 ([facility]) [place] [address] [facility] [address] 06/18/2021 12:00:00 AM EDT eCW1 ([facility]) Unknown [address] [facility] [address] 06/16/2021 12:00:00 AM EDT eCW1 ([facility]) Unknown [address] [facility] [address] 06/15/2021 12:00:00 AM EDT eCW1 ([facility]) Unknown [address] [facility] [address] 05/21/2021 12:00:00 AM EDT eCW1 ([facility]) Unknown [address] [facility] [address] 04/23/2021 12:00:00 AM EDT eCW1 ([facility]) Unknown [address] [facility] [address] 02/23/2021 12:00:00 AM EDT eCW1 ([facility]) Unknown [address] [facility] [address] 02/19/2021 12:00:00 AM EDT eCW1 ([facility]) [place]patient [address] [facility] [address] 02/12/2021 12:00:00 AM EDT eCW1 ([facility]) [place] [address] [facility] [address] 01/26/2021 12:00:00 AM EDT eCW1 ([facility]) Unknown [address] [facility] [address] 12/25/2020 12:00:00 AM EST eCW1 ([facility]) Unknown [address] [facility] [address] 11/27/2020 12:00:00 AM EST eCW1 ([facility]) Unknown [address] [facility] [address] 11/25/2020 12:00:00 AM EST eCW1 ([facility]) Unknown [address] [facility] [address] 10/29/2020 12:00:00 AM EST eCW1 ([facility]) Unknown [address] [facility] [address] 10/02/2020 12:00:00 AM EST eCW1 ([facility]) Unknown [address] [facility] [address] 09/05/2020 12:00:00 AM EST eCW1 ([facility]) Unknown [address] [facility] [address] 09/03/2020 12:00:00 AM EST eCW1 ([facility]) Outpatient [address] [facility] [address] 09/02/2020 12:00:00 AM EST eCW1 ([facility]) Unknown [address] [facility] [address] 08/07/2020 12:00:00 AM EDT eCW1 ([facility]) Unknown [address] [facility] [address] 07/30/2020 12:00:00 AM EDT eCW1 ([facility]) Unknown [address] [facility], [facility] [address] 07/15/2020 12:00:00 AM EDT eCW1 ([facility]) Medications Medication Brand Name Start Date Product Form Dose Route Admi nistrative Instructions Pharmacy Instructions Status Indications Reaction Description Data Source(s) Alprazolam 0.5 MG Oral Tablet [Xanax] Xanax 0.5 MG Xanax 0.5 MG 07/23/2021 12:00:00 AM EDT 1.0 {tablet_as_needed} active Xanax 0.5 MG eCW1 ([facility]) Alprazolam 0.5 MG Oral Tablet [Xanax] Xanax 0.5 MG Xanax 0.5 MG 07/23/2021 12:00:00 AM EDT 1.0 {tablet_as_needed} active Xanax 0.5 MG eCW1 ([facility]) Alprazolam 0.5 MG Oral Tablet [Xanax] Xanax 0.5 MG Xanax 0.5 MG 07/23/2021 12:00:00 AM EDT 1.0 {tablet_as_needed} active Xanax 0.5 MG eCW1 ([facility]) Alprazolam 0.5 MG Oral Tablet [Xanax] Xanax 0.5 MG Xanax 0.5 MG 07/09/2021 12:00:00 AM EDT 1.0 {tablet_as_needed} active Xanax 0.5 MG eCW1 ([facility]) Alprazolam 0.5 MG Oral Tablet [Xanax] Xanax 0.5 MG Xanax 0.5 MG 07/09/2021 12:00:00 AM EDT 1.0 {tablet_as_needed} active Xanax 0.5 MG eCW1 ([facility]) Alprazolam 0.5 MG Oral Tablet [Xanax] Xanax 0.5 MG Xanax 0.5 MG 07/09/2021 12:00:00 AM EDT 1.0 {tablet_as_needed} active Xanax 0.5 MG eCW1 ([facility]) Alprazolam 0.5 MG Oral Tablet [Xanax] Xanax 0.5 MG Xanax 0.5 MG 07/09/2021 12:00:00 AM EDT 1.0 {tablet_as_needed} active Xanax 0.5 MG eCW1 ([facility]) Alprazolam 0.5 MG Oral Tablet [Xanax] Xanax 0.5 MG Xanax 0.5 MG 07/09/2021 12:00:00 AM EDT 1.0 {tablet_as_needed} active Xanax 0.5 MG eCW1 ([facility]) Alprazolam 0.5 MG Oral Tablet [Xanax] Xanax 0.5 MG Xanax 0.5 MG 07/09/2021 12:00:00 AM EDT 1.0 {tablet_as_needed} active Xanax 0.5 MG eCW1 ([facility]) Alprazolam 0.5 MG Oral Tablet [Xanax] Xanax 0.5 MG Xanax 0.5 MG 06/24/2021 12:00:00 AM EDT 1.0 {tablet_as_needed} active Xanax 0.5 MG eCW1 ([facility]) Alprazolam 0.5 MG Oral Tablet [Xanax] Xanax 0.5 MG Xanax 0.5 MG 06/24/2021 12:00:00 AM EDT 1.0 {tablet_as_needed} active Xanax 0.5 MG eCW1 ([facility]) Flonase Allergy Relief 50 MCG/ACT Flonase Allergy Relief 50 MCG/ACT 06/18/2021 12:00:00 AM EDT 1.0 {spray_in_each_nostril} acti ve Flonase Allergy Relief 50 MCG/ACT eCW1 ([facility]) Flonase Allergy Relief 50 MCG/ACT Flonase Allergy Relief 50 MCG/ACT 06/18/2021 12:00:00 AM EDT 1.0 {spray_in_each_nostril} susp ended Flonase Allergy Relief 50 MCG/ACT eCW1 ([facility]) Flonase Allergy Relief 50 MCG/ACT Flonase Allergy Relief 50 MCG/ACT 06/18/2021 12:00:00 AM EDT 1.0 {spray_in_each_nostril} susp ended Flonase Allergy Relief 50 MCG/ACT eCW1 ([facility]) Flonase Allergy Relief 50 MCG/ACT Flonase Allergy Relief 50 MCG/ACT 06/18/2021 12:00:00 AM EDT 1.0 {spray_in_each_nostril} susp ended Flonase Allergy Relief 50 MCG/ACT eCW1 ([facility]) Flonase Allergy Relief 50 MCG/ACT Flonase Allergy Relief 50 MCG/ACT 06/18/2021 12:00:00 AM EDT 1.0 {spray_in_each_nostril} acti ve Flonase Allergy Relief 50 MCG/ACT eCW1 ([facility]) Flonase Allergy Relief 50 MCG/ACT Flonase Allergy Relief 50 MCG/ACT 06/18/2021 12:00:00 AM EDT 1.0 {spray_in_each_nostril} susp ended Flonase Allergy Relief 50 MCG/ACT eCW1 ([facility]) Flonase Allergy Relief 50 MCG/ACT Flonase Allergy Relief 50 MCG/ACT 06/18/2021 12:00:00 AM EDT 1.0 {spray_in_each_nostril} susp ended Flonase Allergy Relief 50 MCG/ACT eCW1 ([facility]) Flonase Allergy Relief 50 MCG/ACT Flonase Allergy Relief 50 MCG/ACT 06/18/2021 12:00:00 AM EDT 1.0 {spray_in_each_nostril} susp ended Flonase Allergy Relief 50 MCG/ACT eCW1 ([facility]) Flonase Allergy Relief 50 MCG/ACT Flonase Allergy Relief 50 MCG/ACT 06/18/2021 12:00:00 AM EDT 1.0 {spray_in_each_nostril} susp ended Flonase Allergy Relief 50 MCG/ACT eCW1 ([facility]) Flonase Allergy Relief 50 MCG/ACT Flonase Allergy Relief 50 MCG/ACT 06/18/2021 12:00:00 AM EDT 1.0 {spray_in_each_nostril} susp ended Flonase Allergy Relief 50 MCG/ACT eCW1 ([facility]) Flonase Allergy Relief 50 MCG/ACT Flonase Allergy Relief 50 MCG/ACT 06/18/2021 12:00:00 AM EDT 1.0 {spray_in_each_nostril} susp ended Flonase Allergy Relief 50 MCG/ACT eCW1 ([facility]) Flonase Allergy Relief 50 MCG/ACT Flonase Allergy Relief 50 MCG/ACT 06/18/2021 12:00:00 AM EDT 1.0 {spray_in_each_nostril} susp ended Flonase Allergy Relief 50 MCG/ACT eCW1 ([facility]) Flonase Allergy Relief 50 MCG/ACT Flonase Allergy Relief 50 MCG/ACT 06/18/2021 12:00:00 AM EDT 1.0 {spray_in_each_nostril} susp ended Flonase Allergy Relief 50 MCG/ACT eCW1 ([facility]) Alprazolam 0.5 MG Oral Tablet [Xanax] Xanax 0.5 MG Xanax 0.5 MG 06/16/2021 12:00:00 AM EDT 1.0 {tablet_as_needed} active Xanax 0.5 MG eCW1 ([facility]) Alprazolam 0.5 MG Oral Tablet [Xanax] Xanax 0.5 MG Xanax 0.5 MG 06/16/2021 12:00:00 AM EDT 1.0 {tablet_as_needed} active Xanax 0.5 MG eCW1 ([facility]) Alprazolam 0.5 MG Oral Tablet [Xanax] Xanax 0.5 MG Xanax 0.5 MG 06/16/2021 12:00:00 AM EDT 1.0 {tablet_as_needed} active Xanax 0.5 MG eCW1 ([facility]) Alprazolam 0.5 MG Oral Tablet [Xanax] Xanax 0.5 MG Xanax 0.5 MG 05/22/2021 12:00:00 AM EDT 1.0 {tablet_as_needed} active Xanax 0.5 MG eCW1 ([facility]) Insurance Providers Payer name Policy type / Coverage type Policy ID Covered republican ID Covered republican's relationship to donald Policy Donald Plan Information MEDICARE [id number] SP [id number] A CIG [id number] SP [id number] CIGNA [id number] [facility] [id number] Medicare [place] Medicare Primary [id number] Self 1 [id number] Medicare [place] Medicare Primary [id number] Self 1 [id number] Medicare [place] Medicare Primary [id number] Self 1 [id number] MEDICARE [id number] SP [id number] A Medicare [place] Medicare Primary [id number] Self Medicare [place] Medicare Primary [id number] Self 1 [id number] Managed Care - [facility] P [id number] S [id number] MEDICARE COMPLETE [id number] SP [id number] [facility] [employer] P [id number] S [id number] Medicare S [id number] S [id number] A National Government Serv Medicare Primary -A [id number] Self [id number] [facility] [employer] Maintenance Organization (O) [id number] Self [id number] [facility] Health Maintenance Organization (HMO) [id number] Self [id number] National Government Serv Medicare Primary -A [id number] Self - ANS-Medicare Part B [id number] [facility] [id number] SP [id number] [facility] Medicare Commercial [id number] Self [id number] [facility] MEDICARE [id number] SP [id number] [facility] [id number] SP [id number] PGBA [facility] [id number] 2 [id number] [facility] Medicare Commercial [id number] Self [id number] FOR LIFE [id number] SP C [id number] FOR LIFE UNAVAILABLE U NAVAILABLE SELF PAY UNAVAILABLE UNAVAILA BLE MEDICAID [facility] [id number] SP [id number] CIGNA [id number] SPO [id number] CIGNA UNAVAILABLE UNAVAILA BLE MEDICARE COMPLETE [id number] SP [id number] MEDICARE COMPLETE [id number] SP [id number] MEDICARE COMPLETE [id number] SP [id number] MEDICARE COMPLETE[facility] O [id number] S [id number] ANSI-Medicare Part B [id number] ANSI-Medicare Part B [id number] ANSI-Medicare Part B [id number] ANSI-Medicare Part B [id number] ANSI-Medicare Part B [id number] ANSI-Medicare Part B [id number] U[facility] Medicare Complete Commercial [id number] Self [id number] [employer] Medicare Commercial [id number] Self [id number] ANSI-Medicare Part B [id number] ANSI-Medicare Part B [id number] ANSI-Medicare Part B [id number] Managed Care - [facility] [id number] S [id number] ANSI-Medicare Part B [id number] Problems, Conditions, and Diagnoses Code Display Name Description Problem Type Effective Dates Data Source(s) Q07.00 542962262 Arnold-Chiari malformation Problem 12:00:00 AM EDT eCW1 ([facility]) F41.9 [id number] Severe anxiety Problem 06/24/2021 12:00:00 A M EDT eCW1 ([facility]) J30.89 Allergic rhinitis Non-seasonal allergic rhinitis , unspecified trigger Problem 02/12/2021 12:00:00 AM EDT eCW1 ([facility]) Surgeries/Procedures No Information Results ID Date Data Source [id number] 06/14/2021 09:24:00 AM EDT [facility] Name Value Range Interpretation Code Description Data Elizabeth rce(s) Supporting Document(s) SARS COVID ANTIGEN POSITIVE [facility] This lab was ordered by [facility] greene nd reported by [facility]. ID Date Data Source VITB12 & FOL 02/13/2021 12:00:00 AM EDT eCW1 ([facility]) Name Value Range Interpretation Code Description Data Elizabeth rce(s) Supporting Document(s) 10.6 FOLATE eCW1 ([facility]) 254 VITAMIN B12 LEVEL eCW1 (Replaced by [facility]) ID Date Data Source VITAMIN D 25-HYDROXY 02/13/2021 12:00:00 AM EDT eCW1 (Replaced by [facility]) Name Value Range Interpretation Code Description Data Elizabeth rce(s) Supporting Document(s) 22.6 30.0-100.0 TOTAL 25(OH) VITAMIN D eC W1 ([facility]) ID Date Data Source CBC with Differential 02/13/2021 12:00:00 AM EDT eCW1 ([facility]) Name Value Range Interpretation Code Description Data Elizabeth rce(s) Supporting Document(s) 6.3 4.0-10.0 WHITE BLOOD COUNT eCW1 (Replaced by [facility]) 4.26 4.00-5.40 RED BLOOD COUNT eCW1 ([facility]) 13.1 12.0-15.5 HEMOGLOBIN eCW1 ([facility]) 40.6 36.0-47.0 HEMATOCRIT eCW1 ([facility]) 95.3 80.0-96.0 MEAN CORPUSCULAR VOLUME e CW1 ([facility]) 12.4 11.5-14.5 RED CELL DISTRIBUTION WID TH eCW1 ([facility]) 30.8 27.0-33.0 MEAN CORPUSCULAR HEMOGLOB IN eCW1 ([facility]) 32.3 32.0-36.5 MEAN CORPUSCULAR HGB CONC eCW1 ([facility]) 271 150-450 PLATELET COUNT, AUTOMATED eCW1 ([facility]) 60.8 36.0-66.0 NEUTROPHILS % eCW1 ([facility]) 29.3 24.0-44.0 LYMPH % eCW1 ([facility]) 8.3 2.0-8.0 MONO % eCW1 ([facility]) 0.6 0.0-3.0 EOS % eCW1 ([facility]) 0.8 0.0-1.0 BASO % eCW1 ([facility]) 1.8 1.5-5.0 LYMPH # eCW1 ([facility]) 0.5 0.0-0.8 MONO # eCW1 ([facility]) 3.8 1.5-8.5 NEUTROPHILS # eCW1 ([facility]) 0.1 0.0-0.2 BASO # eCW1 ([facility]) 0.0 0.0-0.5 EOS # eCW1 ([facility]) Procedure Social History Code Duration Value Status Description Data Source(s ) Smoking 07/23/2021 12:00:00 AM EDT Never Smoker completed Never S moker eCW1 ([facility]) Smoking 07/23/2021 12:00:00 AM EDT Never Smoker completed Never S moker eCW1 ([facility]) Smoking 07/23/2021 12:00:00 AM EDT Never Smoker completed Never S moker eCW1 ([facility]) Smoking 07/01/2021 12:00:00 AM EDT Never Smoker completed Never S moker eCW1 ([facility]) Smoking 07/01/2021 12:00:00 AM EDT Never Smoker completed Never S moker eCW1 ([facility]) Smoking 07/01/2021 12:00:00 AM EDT Never Smoker completed Never S moker eCW1 ([facility]) Smoking 07/01/2021 12:00:00 AM EDT Never Smoker completed Never S moker eCW1 ([facility]) Smoking 07/01/2021 12:00:00 AM EDT Never Smoker completed Never S moker eCW1 ([facility]) Smoking 07/01/2021 12:00:00 AM EDT Never Smoker completed Never S moker eCW1 ([facility]) Smoking 07/01/2021 12:00:00 AM EDT Never Smoker completed Never S moker eCW1 ([facility]) Smoking 07/01/2021 12:00:00 AM EDT Never Smoker completed Never S moker eCW1 ([facility]) Smoking 06/18/2021 12:00:00 AM EDT Never Smoker completed Never S moker eCW1 ([facility]) Smoking 06/18/2021 12:00:00 AM EDT Never Smoker completed Never S moker eCW1 ([facility]) Smoking 02/12/2021 12:00:00 AM EDT Never Smoker completed Never S moker eCW1 ([facility]) Smoking 02/12/2021 12:00:00 AM EDT Never Smoker completed Never S moker eCW1 ([facility]) Smoking 02/12/2021 12:00:00 AM EDT Never Smoker completed Never S moker eCW1 ([facility]) Smoking 02/12/2021 12:00:00 AM EDT Never Smoker completed Never S moker eCW1 ([facility]) Smoking 02/12/2021 12:00:00 AM EDT Never Smoker completed Never S moker eCW1 ([facility]) Smoking 02/12/2021 12:00:00 AM EDT Never Smoker completed Never S moker eCW1 ([facility]) Smoking 09/02/2020 12:00:00 AM EST Never Smoker completed Never S moker eCW1 ([facility]) Smoking 09/02/2020 12:00:00 AM EST Never Smoker completed Never S moker eCW1 ([facility]) Smoking 09/02/2020 12:00:00 AM EST Never Smoker completed Never S moker eCW1 ([facility]) Smoking 09/02/2020 12:00:00 AM EST Never Smoker completed Never S moker eCW1 ([facility]) Smoking 09/02/2020 12:00:00 AM EST Never Smoker completed Never S moker eCW1 ([facility]) Smoking 09/02/2020 12:00:00 AM EST Never Smoker completed Never S moker eCW1 ([facility]) Smoking 09/02/2020 12:00:00 AM EST Never Smoker completed Never S moker eCW1 ([facility]) Smoking 09/02/2020 12:00:00 AM EST Never Smoker completed Never S moker eCW1 ([facility]) Smoking 09/02/2020 12:00:00 AM EST Never Smoker completed Never S moker eCW1 ([facility]) Vital Signs ID Date Data Source UNK Name Value Range Interpretation Code Description Data Source(s) Respiratory rate 18 /min 18 /min eCW1 ([facility]) Body weight 183 [lb_av] 183 [lb_av] eCW1 ([facility]) Body weight 83.01 kg 83.01 kg W1 ([facility]) Body height 62 [in_i] 62 [in_i] eCW1 ([facility]) Body mass index (BMI) [Ratio] 33.47 kg/m2 33.47 kg/m2 [facility] ([facility]) Body temperature 97.9 [degF] 97.9 [degF] W1 ( [facility]) Heart rate 71 /min 71 /min eCW1 ([facility]) Systolic blood pressure 102 mm[Hg] 102 mm[Hg] e CW1 ([facility]) Diastolic blood pressure 66 mm[Hg] 66 mm[Hg] eCW1 ([facility]) Body weight 186 [lb_av] 186 [lb_av] eCW1 ([facility]) Respiratory rate 17 /min 17 /min eCW1 ([facility]) Diastolic blood pressure 65 mm[Hg] 65 mm[Hg] eCW1 ([facility]) Heart rate 78 /min 78 /min eCW1 ([facility]) Body temperature 97.5 [degF] 97.5 [degF] eCW1 ( [facility]) Systolic blood pressure 95 mm[Hg] 95 mm[Hg] e CW1 ([facility]) Body weight 84.37 kg 84.37 kg eCW1 ([facility]) Body height 62 [in_i] 62 [in_i] eCW1 ([facility]) Body mass index (BMI) [Ratio] 34.02 kg/m2 34.02 kg/m2 eCW1 ([facility]) Body weight 186.2 [lb_av] 186.2 [lb_av] eCW1 ([facility]) Body weight 84.46 kg 84.46 kg eCW1 ([facility]) Body height 62 [in_i] 62 [in_i] eCW1 ([facility]) Body mass index (BMI) [Ratio] 34.05 kg/m2 34.05 kg/m2 eCW1 ([facility]) Heart rate 88 /min 88 /min eCW1 ([facility]) Respiratory rate 18 /min 18 /min eCW1 ([facility]) Body temperature 97.0 [degF] 97.0 [degF] eCW1 ( [facility]) Systolic blood pressure 107 mm[Hg] 107 mm[Hg] e CW1 ([facility]) Diastolic blood pressure 72 mm[Hg] 72 mm[Hg] eCW1 ([facility]) Body weight 187.4 [lb_av] 187.4 [lb_av] eCW1 ([facility]) Body weight 85 kg 85 kg eCW1 ([facility]) Body height 62 [in_i] 62 [in_i] eCW1 ([facility]) Body mass index (BMI) [Ratio] 34.27 kg/m2 34.27 kg/m2 eCW1 ([facility]) Heart rate 95 /min 95 /min eCW1 ([facility]) Respiratory rate 17 /min 17 /min eCW1 ([facility]) Body temperature 97.1 [degF] 97.1 [degF] eCW1 ( [facility]) Systolic blood pressure 119 mm[Hg] 119 mm[Hg] e CW1 ([facility]) Diastolic blood pressure 73 mm[Hg] 73 mm[Hg] eCW1 ([facility]) Body weight 188.2 [lb_av] 188.2 [lb_av] eCW1 ([facility]) Diastolic blood pressure 57 mm[Hg] 57 mm[Hg] eCW1 ([facility]) Body height 62 [in_i] 62 [in_i] eCW1 ([facility]) Body mass index (BMI) [Ratio] 34.42 kg/m2 34.42 kg/m2 eCW1 ([facility]) Heart rate 48 /min 48 /min eCW1 ([facility]) Respiratory rate 17 /min 17 /min eCW1 ([facility]) Body temperature 97.1 [degF] 97.1 [degF] eCW1 ( [facility]) Systolic blood pressure 110 mm[Hg] 110 mm[Hg] e CW1 ([facility]) Body weight 182 [lb_av] 182 [lb_av] eCW1 ([facility]) Body weight 82.55 kg 82.55 kg eCW1 ([facility]) Body height 62 [in_i] 62 [in_i] eCW1 ([facility]) Body mass index (BMI) [Ratio] 33.28 kg/m2 33.28 kg/m2 eCW1 ([facility]) Systolic blood pressure 120 mm[Hg] 120 mm[Hg] e CW1 ([facility]) Diastolic blood pressure 74 mm[Hg] 74 mm[Hg] eCW1 ([facility]) Patient Treatment Plan of Care Planned Activity Planned Date Details Description Data Source (s) Alprazolam 0.5 MG Oral Tablet [Xanax] 07/23/2021 12:00:00 AM EDT eCW1 ([facility]) Alprazolam 0.5 MG Oral Tablet [Xanax] 07/23/2021 12:00:00 AM EDT eCW1 ([facility]) Alprazolam 0.5 MG Oral Tablet [Xanax] 07/23/2021 12:00:00 AM EDT eCW1 ([facility]) Alprazolam 0.5 MG Oral Tablet [Xanax] 07/09/2021 12:00:00 AM EDT eCW1 ([facility]) Alprazolam 0.5 MG Oral Tablet [Xanax] 07/09/2021 12:00:00 AM EDT eCW1 ([facility]) Alprazolam 0.5 MG Oral Tablet [Xanax] 07/09/2021 12:00:00 AM EDT eCW1 ([facility]) Alprazolam 0.5 MG Oral Tablet [Xanax] 07/09/2021 12:00:00 AM EDT eCW1 ([facility]) Alprazolam 0.5 MG Oral Tablet [Xanax] 07/09/2021 12:00:00 AM EDT eCW1 ([facility]) Alprazolam 0.5 MG Oral Tablet [Xanax] 07/09/2021 12:00:00 AM EDT eCW1 ([facility]) Flonase Allergy Relief 50 MCG/ACT 06/18/2021 12:00:00 AM EDT eCW1 ([facility]) Flonase Allergy Relief 50 MCG/ACT 06/18/2021 12:00:00 AM EDT eCW1 ([facility]) Alprazolam 0.5 MG Oral Tablet [Xanax] 06/16/2021 12:00:00 AM EDT eCW1 ([facility]) Alprazolam 0.5 MG Oral Tablet [Xanax] 05/22/2021 12:00:00 AM EDT eCW1 ([facility])
--- OUTSIDE RECORDS SUMMARY | 2021-08-01 09:32 | CCD ---
Author Author [facility] Organization [facility] Address Unknown Phone Unavailable Care Team Providers Care Commercial Counsel Name Role Phone Rachale, Joselin Unavailable PROBLEMS Type Condition ICD9-CM Code [id number] Code Onset Dates Condition S tatus W/U Status Risk SNOMED Code Notes Problem Recurrent sinusitis J32.9 Active confirmed 849105245 Problem Anxiety F41.9 Active confirmed 10237888 Problem Irritable bowel syndrome with both constipation and diarrh ea K58.2 Active confirmed 81187177 Problem Abnormal mammogram of left breast R92.8 Active confirmed 814057220 Problem Chronic sinusitis, unspecified location J32.9 Active confirmed 16818396 Problem Non-seasonal allergic rhinitis, unspecified trigger J30.89 Active confirmed 33119813 Problem Allergic rhinitis, unspecified seasonality, unspecifie d trigger J30.9 Active confirmed 00809254 Problem Iron deficiency anemia, unspecified iron deficiency an emia type D50.9 Active confirmed 42640893 Problem Mixed hyperlipidemia E78.2 Active confirmed 890913903 Problem Vitamin D deficiency E55.9 Active confirmed 17734710 ALLERGIES No Known Allergies ENCOUNTERS from 1977 to 2021-06-18 Encounter Location Date Provider Diagnosis [address] [phone] [place] [address] May, Joselin Cano IMMUNIZATIONS No Information SOCIAL HISTORY Tobacco Use: Social History Observation Description Date Details (start date - stop date) Never Smoker Sex Assigned At : Social History Observation Description Sex Assigned At Unknown Education: Question Answer Notes Level of Education: College Audit Question Answer Notes Total Score: 0 Interpretation: Alcohol Education Language: Question Answer Notes Languages spoken: [place] Mandaeism: Question Answer Notes Mandaeism 33 None Sexual Hx: Question Answer Notes [...] te End Date Status NexIUM Active Drisdol 07839 UNIT 1 capsule Orally weekly for 30 [...] Information RESULTS No Results REASON FOR VISIT COVID POS. MEDICAL (GENERAL) HISTORY Type Description Date Medical [...] Once a day for 30 day(s) Jun, Next Appt Details Provider Name:Oscar Velasquez, 2021-06-24 04:00:00 PM, [id number] [facility], , [place], [address], Insurance Providers Payer Name Payer Address Payer Phone Insured Name Patient Relati onship to Insured Coverage Start Date Coverage End Date MEDICARE COMPLETE [employer] [address] [address] [facility] [id number] IRMA RASMUSSEN self
--- OUTSIDE RECORDS SUMMARY | 2021-08-01 10:34 | CCD ---
Author Author [facility] Organization [facility] Address Unknown Phone Unavailable Support Name Relationship Address Phone Eneida Sanchez DDS Next Of Kin [address], [place] [phone] CHRISMiguel PLATA Next Of Kin [address] [address] DISABLED Next Of Kin Unknown Unavailable UE Next Of Kin Unknown Unavailable UN Next Of Kin Unknown Unavailable HOMEMAKER Next Of Kin Unknown Unavailable Miguel RASMUSSEN Next Of Kin [address] [place] [address] TENA TRIPP [place] [address] CHRISMIKKI PLATA ECON [address] [address] Unavailable IRMA RASMUSSEN ECON [address] [place] [phone] Re-disclosure Warning The records that you are [...] is protected by Article 27-F of the [facility] Public Health law. If you continue you may have access to information: Regarding HIV / AIDS; Provided by facilities licensed or operated by the [facility] Office of Mental Health; or Provided by the [facility] Office for People With Developmental Disabilities. If such information is present, then the following [facility] mandated warning applies: This information has [...] law may result in a fine or snf sentence or both. A general authorization for the release of medical or other information is NOT sufficient authorization for further disc losure. Family History Family Member Name Family Member Gender Family Member Status Date o f Status Description Data Source(s) Unknown Unknown Problem MEDENT ([facility], ) Encounters Encounter Providers Location Date Indications Data Source(s ) (TV_Virtual) Virtual Enc Tel Health Visit [address] [place] [address] 07/28/2021 12:00:00 AM EDT eCW1 ([facility]) [place] [address] [facility] [place] [address] 07/27/2021 12:00:00 AM EDT eCW1 ([facility]) [place]patient [address] [facility] [place] [address] 07/23/2021 12:00:00 AM EDT eCW1 (Critical access hospital) (TV_Virtual) Virtual Enc [facility] Health Visit [address] [place] [address] 07/13/2021 12:00:00 AM EDT eCW1 ([facility]) Unknown [address] [facility] [address] 07/10/2021 12:00:00 AM EDT eCW1 ([facility]) Unknown [address] [facility] [address] 07/07/2021 12:00:00 AM EDT eCW1 ([facility]) (TV_Virtual) Virtual Enc Tel Health Visit [address] [place] [address] 07/06/2021 12:00:00 AM EDT eCW1 ([facility]) [place] [address] [facility] [address] 07/02/2021 12:00:00 AM EDT eCW1 ([facility]) [place] [address] [facility] [address] 07/01/2021 12:00:00 AM EDT eCW1 ([facility]) ([facility]) [facility] Scheduled Visit [address] [place] [address] 06/30/2021 12:00:00 AM EDT eCW1 ([facility]) [place] [address] [facility] [address] 06/24/2021 12:00:00 AM EDT eCW1 ([facility]) [place] [address] [facility] [address] 06/18/2021 12:00:00 AM EDT eCW1 ([facility]) Unknown [address] [facility] [address] 06/16/2021 12:00:00 AM EDT eCW1 ([facility]) [place] [address] [facility] [address] 06/15/2021 12:00:00 AM EDT eCW1 ([facility]) Unknown [address] [facility] [address] 05/21/2021 12:00:00 AM EDT eCW1 ([facility]) Unknown [address] [facility] [address] 04/23/2021 12:00:00 AM EDT eCW1 ([facility]) [place] [address] [facility] [address] 02/23/2021 12:00:00 AM EDT eCW1 ([facility]) Unknown [address] [facility] [address] 02/19/2021 12:00:00 AM EDT eCW1 ([facility]) [place]patient [address] [facility] [address] 02/12/2021 12:00:00 AM EDT [facility]CW1 [facility] [place] [address] [facility] [address] 01/26/2021 12:00:00 AM EDT eCW1 ([facility]) Unknown [address] [facility] [address] 12/25/2020 12:00:00 AM EST eCW1 ([facility]) Unknown [address] [facility] [address] 11/27/2020 12:00:00 AM EST eCW1 ([facility]) Unknown [address] [facility] [address] 11/25/2020 12:00:00 AM EST eCW1 ([facility]) Unknown [address] [facility] [address] 10/29/2020 12:00:00 AM EST eCW1 ([facility]) Unknown [address] [facility] [address] 10/02/2020 12:00:00 AM EST eCW1 ([facility]) Unknown [address] [facility] [address] 09/05/2020 12:00:00 AM EST eCW1 ([facility]) Unknown [address] [facility] [address] 09/03/2020 12:00:00 AM EST eCW1 ([facility]) Outpatient [address] [facility] [address] 09/02/2020 12:00:00 AM EST eCW1 ([facility]) Unknown [address] [facility] [address] 08/07/2020 12:00:00 AM EDT eCW1 ([facility]) Unknown [address] [facility] [address] 07/30/2020 12:00:00 AM EDT eCW1 ([facility]) Unknown [address] [facility], [facility] [address] 07/15/2020 12:00:00 AM EDT eCW1 (Critical access hospital) Medications Medication Brand Name Start Date Product Form Dose Route Admi nistrative Instructions Pharmacy Instructions Status Indications Reaction Description Data Source(s) Alprazolam 0.5 MG Oral Tablet [Xanax] Xanax 0.5 MG Xanax 0.5 MG 07/23/2021 12:00:00 AM EDT 1.0 {tablet_as_needed} active Xanax 0.5 MG eCW1 ([facility]) Alprazolam 0.5 MG Oral Tablet [Xanax] Xanax 0.5 MG Xanax 0.5 MG 07/23/2021 12:00:00 AM EDT 1.0 {tablet_as_needed} active Xanax 0.5 MG eCW1 ([facility]) Alprazolam 0.5 MG Oral Tablet [Xanax] Xanax 0.5 MG Xanax 0.5 MG 07/23/2021 12:00:00 AM EDT 1.0 {tablet_as_needed} active Xanax 0.5 MG eCW1 ([facility]) Alprazolam 0.5 MG Oral Tablet [Xanax] Xanax 0.5 MG Xanax 0.5 MG 07/09/2021 12:00:00 AM EDT 1.0 {tablet_as_needed} active Xanax 0.5 MG eCW1 ([facility]) Alprazolam 0.5 MG Oral Tablet [Xanax] Xanax 0.5 MG Xanax 0.5 MG 07/09/2021 12:00:00 AM EDT 1.0 {tablet_as_needed} active Xanax 0.5 MG eCW1 ([facility]) Alprazolam 0.5 MG Oral Tablet [Xanax] Xanax 0.5 MG Xanax 0.5 MG 07/09/2021 12:00:00 AM EDT 1.0 {tablet_as_needed} active Xanax 0.5 MG eCW1 ([facility]) Alprazolam 0.5 MG Oral Tablet [Xanax] Xanax 0.5 MG Xanax 0.5 MG 07/09/2021 12:00:00 AM EDT 1.0 {tablet_as_needed} active Xanax 0.5 MG eCW1 ([facility]) Alprazolam 0.5 MG Oral Tablet [Xanax] Xanax 0.5 MG Xanax 0.5 MG 07/09/2021 12:00:00 AM EDT 1.0 {tablet_as_needed} active Xanax 0.5 MG eCW1 ([facility]) Alprazolam 0.5 MG Oral Tablet [Xanax] Xanax 0.5 MG Xanax 0.5 MG 07/09/2021 12:00:00 AM EDT 1.0 {tablet_as_needed} active Xanax 0.5 MG eCW1 ([facility]) Alprazolam 0.5 MG Oral Tablet [Xanax] Xanax 0.5 MG Xanax 0.5 MG 06/24/2021 12:00:00 AM EDT 1.0 {tablet_as_needed} active Xanax 0.5 MG eCW1 ([facility]) Alprazolam 0.5 MG Oral Tablet [Xanax] Xanax 0.5 MG Xanax 0.5 MG 06/24/2021 12:00:00 AM EDT 1.0 {tablet_as_needed} active Xanax 0.5 MG eCW1 ([facility]) Flonase Allergy Relief 50 MCG/ACT Flonase Allergy Relief 50 MCG/ACT 06/18/2021 12:00:00 AM EDT 1.0 {spray_in_each_nostril} acti ve Flonase Allergy Relief 50 MCG/ACT eCW1 ([facility]) Flonase Allergy Relief 50 MCG/ACT Flonase Allergy Relief 50 MCG/ACT 06/18/2021 12:00:00 AM EDT 1.0 {spray_in_each_nostril} susp ended Flonase Allergy Relief 50 MCG/ACT eCW1 ([facility]) Flonase Allergy Relief 50 MCG/ACT Flonase Allergy Relief 50 MCG/ACT 06/18/2021 12:00:00 AM EDT 1.0 {spray_in_each_nostril} susp ended Flonase Allergy Relief 50 MCG/ACT eCW1 ([facility]) Flonase Allergy Relief 50 MCG/ACT Flonase Allergy Relief 50 MCG/ACT 06/18/2021 12:00:00 AM EDT 1.0 {spray_in_each_nostril} susp ended Flonase Allergy Relief 50 MCG/ACT eCW1 ([facility]) Flonase Allergy Relief 50 MCG/ACT Flonase Allergy Relief 50 MCG/ACT 06/18/2021 12:00:00 AM EDT 1.0 {spray_in_each_nostril} acti ve Flonase Allergy Relief 50 MCG/ACT eCW1 ([facility]) Flonase Allergy Relief 50 MCG/ACT Flonase Allergy Relief 50 MCG/ACT 06/18/2021 12:00:00 AM EDT 1.0 {spray_in_each_nostril} susp ended Flonase Allergy Relief 50 MCG/ACT eCW1 ([facility]) Flonase Allergy Relief 50 MCG/ACT Flonase Allergy Relief 50 MCG/ACT 06/18/2021 12:00:00 AM EDT 1.0 {spray_in_each_nostril} susp ended Flonase Allergy Relief 50 MCG/ACT eCW1 ([facility]) Flonase Allergy Relief 50 MCG/ACT Flonase Allergy Relief 50 MCG/ACT 06/18/2021 12:00:00 AM EDT 1.0 {spray_in_each_nostril} susp ended Flonase Allergy Relief 50 MCG/ACT eCW1 ([facility]) Flonase Allergy Relief 50 MCG/ACT Flonase Allergy Relief 50 MCG/ACT 06/18/2021 12:00:00 AM EDT 1.0 {spray_in_each_nostril} susp ended Flonase Allergy Relief 50 MCG/ACT eCW1 ([facility]) Flonase Allergy Relief 50 MCG/ACT Flonase Allergy Relief 50 MCG/ACT 06/18/2021 12:00:00 AM EDT 1.0 {spray_in_each_nostril} susp ended Flonase Allergy Relief 50 MCG/ACT eCW1 ([facility]) Flonase Allergy Relief 50 MCG/ACT Flonase Allergy Relief 50 MCG/ACT 06/18/2021 12:00:00 AM EDT 1.0 {spray_in_each_nostril} susp ended Flonase Allergy Relief 50 MCG/ACT eCW1 ([facility]) Flonase Allergy Relief 50 MCG/ACT Flonase Allergy Relief 50 MCG/ACT 06/18/2021 12:00:00 AM EDT 1.0 {spray_in_each_nostril} susp ended Flonase Allergy Relief 50 MCG/ACT eCW1 ([facility]) Flonase Allergy Relief 50 MCG/ACT Flonase Allergy Relief 50 MCG/ACT 06/18/2021 12:00:00 AM EDT 1.0 {spray_in_each_nostril} susp ended Flonase Allergy Relief 50 MCG/ACT eCW1 ([facility]) Alprazolam 0.5 MG Oral Tablet [Xanax] Xanax 0.5 MG Xanax 0.5 MG 06/16/2021 12:00:00 AM EDT 1.0 {tablet_as_needed} active Xanax 0.5 MG eCW1 ([facility]) Alprazolam 0.5 MG Oral Tablet [Xanax] Xanax 0.5 MG Xanax 0.5 MG 06/16/2021 12:00:00 AM EDT 1.0 {tablet_as_needed} active Xanax 0.5 MG eCW1 ([facility]) Alprazolam 0.5 MG Oral Tablet [Xanax] Xanax 0.5 MG Xanax 0.5 MG 06/16/2021 12:00:00 AM EDT 1.0 {tablet_as_needed} active Xanax 0.5 MG eCW1 ([facility]) Alprazolam 0.5 MG Oral Tablet [Xanax] Xanax 0.5 MG Xanax 0.5 MG 05/22/2021 12:00:00 AM EDT 1.0 {tablet_as_needed} active Xanax 0.5 MG eCW1 ([facility]) Insurance Providers Payer name Policy type / Coverage type Policy ID Covered republican ID Covered republican's relationship to donald Policy Donald Plan Information MEDICARE [id number] SP [id number] A CIG [id number] SP [id number] CIGNA [id number] [facility] [id number] Medicare [place] Medicare Primary [id number] Self 1 [id number] Medicare [place] Medicare Primary [id number] Self 1 [id number] Medicare [place] Medicare Primary [id number] Self 1 [id number] MEDICARE [id number] SP [id number] A Medicare [place] Medicare Primary [id number] Self Medicare [place] Medicare Primary [id number] Self 1 [id number] Managed Care - [facility] P [id number] S [id number] MEDICARE COMPLETE [id number] SP [id number] [facility] P [id number] S [id number] Medicare S [id number] S [id number] A National Government Serv Medicare Primary -A [id number] Self [id number] [facility] Sequence Design Maintenance Organization (O) [id number] Self [id number] [facility] Health Maintenance Organization (HMO) [id number] Self [id number] National Government Serv Medicare Primary -A [id number] Self - ANS-Medicare Part B [id number] [facility] [id number] SP [id number] [facility] Medicare Commercial [id number] Self [id number] [facility] MEDICARE [id number] SP [id number] [facility] [id number] SP [id number] [facility] [id number] 2 [id number] [facility] Medicare Commercial [id number] Self [id number] FOR LIFE [id number] SP C [id number] FOR LIFE UNAVAILABLE U NAVAILABLE SELF PAY UNAVAILABLE UNAVAILA BLE MEDICAID [facility] [id number] SP [id number] CIGNA [id number] SPO [id number] CIGNA UNAVAILABLE UNAVAILA BLE MEDICARE COMPLETE [id number] SP [id number] MEDICARE COMPLETE [id number] SP [id number] MEDICARE COMPLETE [id number] SP [id number] [facility]IC[facility] O [id number] S [id number] ANSI-Medicare Part B [id number] ANSI-Medicare Part B [id number] ANSI-Medicare Part B [id number] ANSI-Medicare Part B [id number] ANSI-Medicare Part B [id number] ANSI-Medicare Part B [id number] Medicare Complete Commercial [id number] Self [id number] [employer] Medicare Commercial [id number] Self [id number] ANSI-Medicare Part B [id number] ANSI-Medicare Part B [id number] ANSI-Medicare Part B [id number] Managed Care - [facility] [id number] S [id number] ANSI-Medicare Part B [id number] Problems, Conditions, and Diagnoses Code Display Name Description Problem Type Effective Dates Data Source(s) Q07.00 [id number] Arnold-Chiari malformation Problem 12:00:00 AM EDT eCW1 ([facility]) F41.9 [id number] Severe anxiety Problem 06/24/2021 12:00:00 A M EDT eCW1 ([facility]) J30.89 Allergic rhinitis Non-seasonal allergic rhinitis , unspecified trigger Problem 02/12/2021 12:00:00 AM EDT eCW1 ([facility]) Surgeries/Procedures No Information Results ID Date Data Source [id number] 06/14/2021 09:24:00 AM EDT [facility] Name Value Range Interpretation Code Description Data Elizabeth rce(s) Supporting Document(s) SARS COVID ANTIGEN POSITIVE [facility] This lab was ordered by [facility] greene nd reported by [facility]. ID Date Data Source VITB12 & FOL 02/13/2021 12:00:00 AM EDT eCW1 ([facility]) Name Value Range Interpretation Code Description Data Elizabeth rce(s) Supporting Document(s) 10.6 FOLATE eCW1 ([facility]) 254 VITAMIN B12 LEVEL eCW1 ([facility]) ID Date Data Source VITAMIN D 25-HYDROXY 02/13/2021 12:00:00 AM EDT eCW1 ([facility]) Name Value Range Interpretation Code Description Data Elizabeth rce(s) Supporting Document(s) 22.6 30.0-100.0 TOTAL 25(OH) VITAMIN D eC W1 ([facility]) ID Date Data Source CBC with Differential 02/13/2021 12:00:00 AM EDT eCW1 ([facility]) Name Value Range Interpretation Code Description Data Elizabeth rce(s) Supporting Document(s) 6.3 4.0-10.0 WHITE BLOOD COUNT eCW1 ([facility]) 4.26 4.00-5.40 RED BLOOD COUNT eCW1 ([facility]) 13.1 12.0-15.5 HEMOGLOBIN eCW1 ([facility]) 40.6 36.0-47.0 HEMATOCRIT eCW1 ([facility]) 95.3 80.0-96.0 MEAN CORPUSCULAR VOLUME e CW1 ([facility]) 12.4 11.5-14.5 RED CELL DISTRIBUTION WID TH eCW1 ([facility]) 30.8 27.0-33.0 MEAN CORPUSCULAR HEMOGLOB IN eCW1 ([facility]) 32.3 32.0-36.5 MEAN CORPUSCULAR HGB CONC eCW1 ([facility]) 271 150-450 PLATELET COUNT, AUTOMATED eCW1 ([facility]) 60.8 36.0-66.0 NEUTROPHILS % eCW1 ([facility]) 29.3 24.0-44.0 LYMPH % eCW1 ([facility]) 8.3 2.0-8.0 MONO % eCW1 ([facility]) 0.6 0.0-3.0 EOS % eCW1 ([facility]) 0.8 0.0-1.0 BASO % eCW1 ([facility]) 1.8 1.5-5.0 LYMPH # eCW1 ([facility]) 0.5 0.0-0.8 MONO # eCW1 ([facility]) 3.8 1.5-8.5 NEUTROPHILS # eCW1 ([facility]) 0.1 0.0-0.2 BASO # eCW1 ([facility]) 0.0 0.0-0.5 EOS # eCW1 ([facility]) Procedure Social History Code Duration Value Status Description Data Source(s ) Smoking 07/23/2021 12:00:00 AM EDT Never Smoker completed Never S moker eCW1 ([facility]) Smoking 07/23/2021 12:00:00 AM EDT Never Smoker completed Never S moker eCW1 ([facility]) Smoking 07/23/2021 12:00:00 AM EDT Never Smoker completed Never S moker eCW1 ([facility]) Smoking 07/01/2021 12:00:00 AM EDT Never Smoker completed Never S moker eCW1 ([facility]) Smoking 07/01/2021 12:00:00 AM EDT Never Smoker completed Never S moker eCW1 ([facility]) Smoking 07/01/2021 12:00:00 AM EDT Never Smoker completed Never S moker eCW1 ([facility]) Smoking 07/01/2021 12:00:00 AM EDT Never Smoker completed Never S moker eCW1 ([facility]) Smoking 07/01/2021 12:00:00 AM EDT Never Smoker completed Never S moker eCW1 ([facility]) Smoking 07/01/2021 12:00:00 AM EDT Never Smoker completed Never S moker eCW1 ([facility]) Smoking 07/01/2021 12:00:00 AM EDT Never Smoker completed Never S moker eCW1 ([facility]) Smoking 07/01/2021 12:00:00 AM EDT Never Smoker completed Never S moker eCW1 ([facility]) Smoking 06/18/2021 12:00:00 AM EDT Never Smoker completed Never S moker eCW1 ([facility]) Smoking 06/18/2021 12:00:00 AM EDT Never Smoker completed Never S moker eCW1 ([facility]) Smoking 02/12/2021 12:00:00 AM EDT Never Smoker completed Never S moker eCW1 ([facility]) Smoking 02/12/2021 12:00:00 AM EDT Never Smoker completed Never S moker eCW1 ([facility]) Smoking 02/12/2021 12:00:00 AM EDT Never Smoker completed Never S moker eCW1 ([facility]) Smoking 02/12/2021 12:00:00 AM EDT Never Smoker completed Never S moker eCW1 ([facility]) Smoking 02/12/2021 12:00:00 AM EDT Never Smoker completed Never S moker eCW1 ([facility]) Smoking 02/12/2021 12:00:00 AM EDT Never Smoker completed Never S moker eCW1 ([facility]) Smoking 09/02/2020 12:00:00 AM EST Never Smoker completed Never S moker eCW1 ([facility]) Smoking 09/02/2020 12:00:00 AM EST Never Smoker completed Never S moker eCW1 ([facility]) Smoking 09/02/2020 12:00:00 AM EST Never Smoker completed Never S moker eCW1 ([facility]) Smoking 09/02/2020 12:00:00 AM EST Never Smoker completed Never S moker eCW1 ([facility]) Smoking 09/02/2020 12:00:00 AM EST Never Smoker completed Never S moker eCW1 ([facility]) Smoking 09/02/2020 12:00:00 AM EST Never Smoker completed Never S moker eCW1 ([facility]) Smoking 09/02/2020 12:00:00 AM EST Never Smoker completed Never S moker eCW1 ([facility]) Smoking 09/02/2020 12:00:00 AM EST Never Smoker completed Never S moker eCW1 ([facility]) Smoking 09/02/2020 12:00:00 AM EST Never Smoker completed Never S moker eCW1 ([facility]) Vital Signs ID Date Data Source UNK Name Value Range Interpretation Code Description Data Source(s) Respiratory rate 18 /min 18 /min eCW1 ([facility]) Body weight 183 [lb_av] 183 [lb_av] eCW1 ([facility]) Body temperature 97.9 [degF] 97.9 [degF] eCW1 ( [facility]) Body weight 83.01 kg 83.01 kg eCW1 ([facility]) Systolic blood pressure 102 mm[Hg] 102 mm[Hg] e CW1 ([facility]) Body height 62 [in_i] 62 [in_i] W1 ([facility]) Body mass index (BMI) [Ratio] 33.47 kg/m2 33.47 kg/m2 W1 ([facility]) Diastolic blood pressure 66 mm[Hg] 66 mm[Hg] W1 ([facility]) Heart rate 71 /min 71 /min eCW1 ([facility]) Heart rate 78 /min 78 /min eCW1 ([facility]) Respiratory rate 17 /min 17 /min eCW1 ([facility]) Body temperature 97.5 [degF] 97.5 [degF] eCW1 ( [facility]) Body weight 186 [lb_av] 186 [lb_av] eCW1 ([facility]) Body weight 84.37 kg 84.37 kg eCW1 ([facility]) Body height 62 [in_i] 62 [in_i] eCW1 ([facility]) Body mass index (BMI) [Ratio] 34.02 kg/m2 34.02 kg/m2 eCW1 ([facility]) Diastolic blood pressure 65 mm[Hg] 65 mm[Hg] eCW1 ([facility]) Systolic blood pressure 95 mm[Hg] 95 mm[Hg] e CW1 ([facility]) Body weight 186.2 [lb_av] 186.2 [lb_av] eCW1 ([facility]) Body weight 84.46 kg 84.46 kg eCW1 ([facility]) Body height 62 [in_i] 62 [in_i] eCW1 ([facility]) Body mass index (BMI) [Ratio] 34.05 kg/m2 34.05 kg/m2 eCW1 ([facility]) Heart rate 88 /min 88 /min eCW1 ([facility] [facility] Respiratory rate 18 /min 18 /min eCW1 ([facility]) Body temperature 97.0 [degF] 97.0 [degF] eCW1 ( [facility]) Systolic blood pressure 107 mm[Hg] 107 mm[Hg] e CW1 ([facility]) Diastolic blood pressure 72 mm[Hg] 72 mm[Hg] eCW1 ([facility]) Body weight 187.4 [lb_av] 187.4 [lb_av] eCW1 ([facility]) Body weight 85 kg 85 kg eCW1 ([facility]) Body height 62 [in_i] 62 [in_i] eCW1 ([facility]) Body mass index (BMI) [Ratio] 34.27 kg/m2 34.27 kg/m2 eCW1 ([facility]) Heart rate 95 /min 95 /min eCW1 ([facility]) Respiratory rate 17 /min 17 /min eCW1 ([facility]) Body temperature 97.1 [degF] 97.1 [degF] eCW1 ( [facility]) Systolic blood pressure 119 mm[Hg] 119 mm[Hg] e CW1 ([facility]) Diastolic blood pressure 73 mm[Hg] 73 mm[Hg] eCW1 ([facility]) Body weight 188.2 [lb_av] 188.2 [lb_av] eCW1 ([facility]) Body height 62 [in_i] 62 [in_i] eCW1 ([facility]) Diastolic blood pressure 57 mm[Hg] 57 mm[Hg] eCW1 ([facility]) Body mass index (BMI) [Ratio] 34.42 kg/m2 34.42 kg/m2 eCW1 ([facility]) Heart rate 48 /min 48 /min eCW1 ([facility]) Respiratory rate 17 /min 17 /min eCW1 ([facility]) Body temperature 97.1 [degF] 97.1 [degF] eCW1 ( [facility]) Systolic blood pressure 110 mm[Hg] 110 mm[Hg] e CW1 ([facility]) Body weight 182 [lb_av] 182 [lb_av] eCW1 ([facility]) Body weight 82.55 kg 82.55 kg eCW1 ([facility]) Body height 62 [in_i] 62 [in_i] eCW1 ([facility]) Body mass index (BMI) [Ratio] 33.28 kg/m2 33.28 kg/m2 eCW1 ([facility]) Systolic blood pressure 120 mm[Hg] 120 mm[Hg] e CW1 ([facility]) Diastolic blood pressure 74 mm[Hg] 74 mm[Hg] eCW1 ([facility]) Patient Treatment Plan of Care Planned Activity Planned Date Details Description Data Source (s) Alprazolam 0.5 MG Oral Tablet [Xanax] 07/23/2021 12:00:00 AM EDT eCW1 ([facility]) Alprazolam 0.5 MG Oral Tablet [Xanax] 07/23/2021 12:00:00 AM EDT eCW1 ([facility]) Alprazolam 0.5 MG Oral Tablet [Xanax] 07/23/2021 12:00:00 AM EDT eCW1 ([facility]) Alprazolam 0.5 MG Oral Tablet [Xanax] 07/09/2021 12:00:00 AM EDT eCW1 ([facility]) Alprazolam 0.5 MG Oral Tablet [Xanax] 07/09/2021 12:00:00 AM EDT eCW1 ([facility]) Alprazolam 0.5 MG Oral Tablet [Xanax] 07/09/2021 12:00:00 AM EDT eCW1 ([facility]) Alprazolam 0.5 MG Oral Tablet [Xanax] 07/09/2021 12:00:00 AM EDT eCW1 ([facility]) Alprazolam 0.5 MG Oral Tablet [Xanax] 07/09/2021 12:00:00 AM EDT eCW1 ([facility]) Alprazolam 0.5 MG Oral Tablet [Xanax] 07/09/2021 12:00:00 AM EDT eCW1 ([facility]) Flonase Allergy Relief 50 MCG/ACT 06/18/2021 12:00:00 AM EDT eCW1 ([facility]) Flonase Allergy Relief 50 MCG/ACT 06/18/2021 12:00:00 AM EDT eCW1 ([facility]) Alprazolam 0.5 MG Oral Tablet [Xanax] 06/16/2021 12:00:00 AM EDT eCW1 ([facility]) Alprazolam 0.5 MG Oral Tablet [Xanax] 05/22/2021 12:00:00 AM EDT eCW1 ([facility])
[2021-08-01 11:32] LABS: HEMATOCRIT 42.6 % (36.0-47.0); HEMOGLOBIN 14.2 g/dl (12.0-15.5); MEAN CORPUSCULAR HEMOGLOBIN 31.2 pg (27.0-33.0); MEAN CORPUSCULAR HGB CONC 33.3 g/dl (32.0-36.5); MEAN CORPUSCULAR VOLUME 93.6 fl (80.0-96.0); PLATELET COUNT, AUTOMATED 322 10^3/uL (150-450); RED BLOOD COUNT 4.55 10^6/uL (4.00-5.40); WHITE BLOOD COUNT 5.8 10^3/uL (4.0-10.0)
[2021-08-01] MEDS ORDERED: ALPRAZolam 0.5 MG TAB PO ONE (11:40)
[2021-08-01 12:00] LABS: AMPHETAMINES LEVEL URINE NEGATIVE (NEGATIVE); BARBITURATES URINE NEGATIVE (NEGATIVE); BENZODIAZEPINES URINE POSITIVE (NEGATIVE); CANNABINOIDS URINE NEGATIVE (NEGATIVE); COCAINE METABOLITE URINE NEGATIVE (NEGATIVE); METHADONE URINE NEGATIVE (NEGATIVE); OPIATES URINE NEGATIVE (NEGATIVE); PHENCYCLIDINE URINE NEGATIVE (NEGATIVE)
[2021-08-01 12:04] LABS: ERYTHROCYTE SEDIMENTATION RATE 14 mm/hr (0-20)
[2021-08-01 14:34] LABS: ALT/SGPT 21 U/L (12-78); BILIRUBIN,DIRECT 0.1 MG/DL (0.0-0.2); BILIRUBIN,TOTAL 0.4 MG/DL (0.2-1.0); BLOOD UREA NITROGEN 5 MG/DL (7-18); CALCIUM LEVEL 9.2 MG/DL (8.5-10.1); CARBON DIOXIDE LEVEL 31 MEQ/L (21-32); CHLORIDE LEVEL 109 MEQ/L (98-107); CREATININE FOR GFR 0.73 MG/DL (0.55-1.30); ETHYL ALCOHOL (ETHANOL) < 0.003 % (0.000-0.010); FERRITIN 66 NG/ML (8-252); GLOMERULAR FILTRATION RATE > 60.0 (>58); GLUCOSE, FASTING 99 MG/DL (70-100); IRON (FE) 61 UG/DL (50-170); MAGNESIUM LEVEL 2.3 MG/DL (1.8-2.4); PERCENT SATURATION 19.7 % (13.2-45.0); POTASSIUM SERUM 3.9 MEQ/L (3.5-5.1); SALICYLATE LEVEL < 1.7 MG/DL (5.0-30.0); SODIUM LEVEL 142 MEQ/L (136-145); TOTAL IRON BINDING CAPACITY 309 UG/DL (250-450); TOTAL PROTEIN 7.4 GM/DL (6.4-8.2)
[2021-08-01 14:42] LABS: HCG, SERUM QUALITATIVE NEGATIVE (NEGATIVE)
[2021-08-01] MEDS ORDERED: ATIV1TAB10 PO (18:06)
[2021-08-01] MEDS ORDERED: LORazepam 0.5 MG TAB PO ONE (18:10)
[2021-08-01 18:38] LABS: ACETAMINOPHEN LEVEL < 2.0 UG/ML (10.0-30.0)
--- NOTE | 2021-08-02 19:23 | ECGEPIP ---
[facility] - ED Test Date: 2021-08-01 Pat Name: IRMA RASMUSSEN Department: Room: - Gender: Female Metal Painter: JLucien : 1975 Requested By: RICARDO Gomez Order Number: [id number] Reading MD: Darin Nixon Measurements Intervals [place] Rate: 53 P: 45 [place]: 146 QRS: 51 QRSD: 72 T: 45 QT: 430 QTc: 403 Interpretive Statements Sinus bradycardia SIMILAR TO 07/11/21 Electronically Signed on 08-02-2021 19:23:31 EDT by Darin Nixon
[2021-08-03 10:24] LABS: VITAMIN B12 LEVEL 312 PG/ML (247-911)
[2021-08-04 13:09] LABS: ANTINUCLEAR ANTIBODIES DIRECT Negative (Negative)
== END 2021-08-01 18:43 | disposition home or self-care (01) ==
LOC: M ED 09:26
DX: G47.00 Insomnia, unspecified (principal); F41.9 Anxiety disorder, unspecified; K58.9 Irritable bowel syndrome, unspecified; G93.1 Anoxic brain damage, not elsewhere classified; D64.9 Anemia, unspecified; Z79.899 Other long term (current) drug therapy; Z98.84 Bariatric surgery status

== ENCOUNTER 2021-08-03 13:12 | Inpatient (IN) | payer MEDICARE ==
[~2021-08-03] VITALS: Ht 154.9 cm; Wt 80.0 kg
[~2021-08-03 13:12] MED LIST changes: +ATIV1TAB10 PO
--- OUTSIDE RECORDS SUMMARY | 2021-08-03 13:21 | CCD ---
Author Author [facility] Organization [facility] Address Unknown Phone Unavailable Support Name Relationship Address Phone Eneida Sanchez DDS Next Of Kin [address] [place], [place] [phone] CHRISMiguel PLATA Next Of Kin [address] [address] DISABLED Next Of Kin Unknown Unavailable UE Next Of Kin Unknown Unavailable UN Next Of Kin Unknown Unavailable HOMEMAKER Next Of Kin Unknown Unavailable Miguel RASMUSSEN Next Of Kin [address] [place] [address] TENA [place] [address] CHRISMIKKI PLATA ECON [address] [address] Unavailable IRMA RASMUSSEN ECON [address] [place] [phone] Re-disclosure Warning The records that you are [...] is protected by Article 27-F of the [facility] Public Health law. If you continue you may have access to information: Regarding HIV / AIDS; Provided by facilities licensed or operated by the [facility] Office of Mental Health; or Provided by the [facility] Office for People With Developmental Disabilities. If such information is present, then the following [facility] mandated warning applies: This information has [...] law may result in a fine or detention sentence or both. A general authorization for the release of medical or other information is NOT sufficient authorization for further disc losure. Family History Family Member Name Family Member Gender Family Member Status Date o f Status Description Data Source(s) Unknown Unknown Problem MEDENT ([facility], ) Encounters Encounter Providers Location Date Indications Data Source(s ) (TV_Virtual) Virtual Enc Tel Health Visit [address] [place] [address] 07/28/2021 12:00:00 AM EDT eCW1 ([facility]) Unknown [address] [facility] [address] 07/27/2021 12:00:00 AM EDT eCW1 ([facility]) Outpatient [address] [facility] [address] 07/23/2021 12:00:00 AM EDT eCW1 ([facility]) (TV_Virtual) Virtual Enc Tel Health Visit [address] [place] [address] 07/13/2021 12:00:00 AM EDT eCW1 ([facility]) Unknown [address] [facility] [address] 07/10/2021 12:00:00 AM EDT eCW1 ([facility]) Unknown [address] [facility] [address] 07/07/2021 12:00:00 AM EDT eCW1 ([facility]) (TV_Virtual) Virtual Enc Tel Health Visit [address] [place] [address] 07/06/2021 12:00:00 AM EDT eCW1 ([facility]) [place] [address] [facility] [address] 07/02/2021 12:00:00 AM EDT eCW1 ([facility]) [place] [address] [facility] [address] 07/01/2021 12:00:00 AM EDT eCW1 ([facility]) ([facility]TH) [facility] Health Scheduled Visit [address] [place] [address] 06/30/2021 12:00:00 AM EDT eCW1 ([facility]) [place] [address] [facility] [address] 06/24/2021 12:00:00 AM EDT eCW1 ([facility]) [place] [address] [facility] [address] 06/18/2021 12:00:00 AM EDT eCW1 ([facility]) [place] [address] [facility] [address] 06/16/2021 12:00:00 AM EDT eCW1 ([facility]) [place] [address] [facility] [address] 06/15/2021 12:00:00 AM EDT eCW1 ([facility]) [place] [address] [facility] [address] 05/21/2021 12:00:00 AM EDT eCW1 ([facility]) [place] [address] [facility] [address] 04/23/2021 12:00:00 AM EDT eCW1 ([facility]) [place] [address] [facility] [address] 02/23/2021 12:00:00 AM EDT eCW1 ([facility]) [place] [address] [facility] [address] 02/19/2021 12:00:00 AM EDT eCW1 ([facility]) [place] [address] [facility] [address] 02/12/2021 12:00:00 AM EDT eCW1 ([facility]) [place] [address] [facility] [address] 01/26/2021 12:00:00 AM EDT eCW1 ([facility]) [place] [address] [facility] [address] 12/25/2020 12:00:00 AM EST eCW1 ([facility]) [place] [address] [facility] [address] 11/27/2020 12:00:00 AM EST eCW1 ([facility]) [place] [address] [facility] [address] 11/25/2020 12:00:00 AM EST eCW1 ([facility]) [place] [address] [facility] [address] 10/29/2020 12:00:00 AM EST eCW1 ([facility]) [place] [address] [facility] [address] 10/02/2020 12:00:00 AM EST eCW1 ([facility]) [place] [address] [facility] [address] 09/05/2020 12:00:00 AM EST eCW1 ([facility]) [place] [address] [facility] [address] 09/03/2020 12:00:00 AM EST eCW1 ([facility]) [place] [address] [facility] [address] 09/02/2020 12:00:00 AM EST eCW1 ([facility]) [place] [address] [facility] [address] 08/07/2020 12:00:00 AM EDT eCW1 ([facility]) [place] [address] [address] 07/30/2020 12:00:00 AM EDT eCW1 ([facility]) Unknown [address] [facility] [address] 07/15/2020 12:00:00 AM EDT eCW1 ([facility]) Medications Medication Brand Name Start Date Product Form Dose Route Admi nistrative Instructions Pharmacy Instructions Status Indications Reaction Description Data Source(s) Alprazolam 0.5 MG Oral Tablet [Xanax] Xanax 0.5 MG Xanax 0.5 MG 07/23/2021 12:00:00 AM EDT 1.0 {tablet_as_needed} active Xanax 0.5 MG eCW1 ([facility]) Alprazolam 0.5 MG Oral Tablet [Xanax] Xanax 0.5 MG Xanax 0.5 MG 07/23/2021 12:00:00 AM EDT 1.0 {tablet_as_needed} active Xanax 0.5 MG eCW1 ([facility]) Alprazolam 0.5 MG Oral Tablet [Xanax] Xanax 0.5 MG Xanax 0.5 MG 07/23/2021 12:00:00 AM EDT 1.0 {tablet_as_needed} active Xanax 0.5 MG eCW1 ([facility]) Alprazolam 0.5 MG Oral Tablet [Xanax] Xanax 0.5 MG Xanax 0.5 MG 07/09/2021 12:00:00 AM EDT 1.0 {tablet_as_needed} active Xanax 0.5 MG eCW1 ([facility]) Alprazolam 0.5 MG Oral Tablet [Xanax] Xanax 0.5 MG Xanax 0.5 MG 07/09/2021 12:00:00 AM EDT 1.0 {tablet_as_needed} active Xanax 0.5 MG eCW1 ([facility]) Alprazolam 0.5 MG Oral Tablet [Xanax] Xanax 0.5 MG Xanax 0.5 MG 07/09/2021 12:00:00 AM EDT 1.0 {tablet_as_needed} active Xanax 0.5 MG eCW1 ([facility]) Alprazolam 0.5 MG Oral Tablet [Xanax] Xanax 0.5 MG Xanax 0.5 MG 07/09/2021 12:00:00 AM EDT 1.0 {tablet_as_needed} active Xanax 0.5 MG eCW1 ([facility]) Alprazolam 0.5 MG Oral Tablet [Xanax] Xanax 0.5 MG Xanax 0.5 MG 07/09/2021 12:00:00 AM EDT 1.0 {tablet_as_needed} active Xanax 0.5 MG eCW1 ([facility]) Alprazolam 0.5 MG Oral Tablet [Xanax] Xanax 0.5 MG Xanax 0.5 MG 07/09/2021 12:00:00 AM EDT 1.0 {tablet_as_needed} active Xanax 0.5 MG eCW1 ([facility]) Alprazolam 0.5 MG Oral Tablet [Xanax] Xanax 0.5 MG Xanax 0.5 MG 06/24/2021 12:00:00 AM EDT 1.0 {tablet_as_needed} active Xanax 0.5 MG eCW1 ([facility]) Alprazolam 0.5 MG Oral Tablet [Xanax] Xanax 0.5 MG Xanax 0.5 MG 06/24/2021 12:00:00 AM EDT 1.0 {tablet_as_needed} active Xanax 0.5 MG eCW1 ([facility]) Flonase Allergy Relief 50 MCG/ACT Flonase Allergy Relief 50 MCG/ACT 06/18/2021 12:00:00 AM EDT 1.0 {spray_in_each_nostril} acti ve Flonase Allergy Relief 50 MCG/ACT eCW1 ([facility]) Flonase Allergy Relief 50 MCG/ACT Flonase Allergy Relief 50 MCG/ACT 06/18/2021 12:00:00 AM EDT 1.0 {spray_in_each_nostril} susp ended Flonase Allergy Relief 50 MCG/ACT eCW1 ([facility]) Flonase Allergy Relief 50 MCG/ACT Flonase Allergy Relief 50 MCG/ACT 06/18/2021 12:00:00 AM EDT 1.0 {spray_in_each_nostril} susp ended Flonase Allergy Relief 50 MCG/ACT eCW1 ([facility]) Flonase Allergy Relief 50 MCG/ACT Flonase Allergy Relief 50 MCG/ACT 06/18/2021 12:00:00 AM EDT 1.0 {spray_in_each_nostril} susp ended Flonase Allergy Relief 50 MCG/ACT eCW1 ([facility]) Flonase Allergy Relief 50 MCG/ACT Flonase Allergy Relief 50 MCG/ACT 06/18/2021 12:00:00 AM EDT 1.0 {spray_in_each_nostril} acti ve Flonase Allergy Relief 50 MCG/ACT eCW1 ([facility]) Flonase Allergy Relief 50 MCG/ACT Flonase Allergy Relief 50 MCG/ACT 06/18/2021 12:00:00 AM EDT 1.0 {spray_in_each_nostril} susp ended Flonase Allergy Relief 50 MCG/ACT eCW1 ([facility]) Flonase Allergy Relief 50 MCG/ACT Flonase Allergy Relief 50 MCG/ACT 06/18/2021 12:00:00 AM EDT 1.0 {spray_in_each_nostril} susp ended Flonase Allergy Relief 50 MCG/ACT eCW1 ([facility]) Flonase Allergy Relief 50 MCG/ACT Flonase Allergy Relief 50 MCG/ACT 06/18/2021 12:00:00 AM EDT 1.0 {spray_in_each_nostril} susp ended Flonase Allergy Relief 50 MCG/ACT eCW1 ([facility]) Flonase Allergy Relief 50 MCG/ACT Flonase Allergy Relief 50 MCG/ACT 06/18/2021 12:00:00 AM EDT 1.0 {spray_in_each_nostril} susp ended Flonase Allergy Relief 50 MCG/ACT eCW1 ([facility]) Flonase Allergy Relief 50 MCG/ACT Flonase Allergy Relief 50 MCG/ACT 06/18/2021 12:00:00 AM EDT 1.0 {spray_in_each_nostril} susp ended Flonase Allergy Relief 50 MCG/ACT eCW1 ([facility]) Flonase Allergy Relief 50 MCG/ACT Flonase Allergy Relief 50 MCG/ACT 06/18/2021 12:00:00 AM EDT 1.0 {spray_in_each_nostril} susp ended Flonase Allergy Relief 50 MCG/ACT eCW1 ([facility]) Flonase Allergy Relief 50 MCG/ACT Flonase Allergy Relief 50 MCG/ACT 06/18/2021 12:00:00 AM EDT 1.0 {spray_in_each_nostril} susp ended Flonase Allergy Relief 50 MCG/ACT eCW1 ([facility]) Flonase Allergy Relief 50 MCG/ACT Flonase Allergy Relief 50 MCG/ACT 06/18/2021 12:00:00 AM EDT 1.0 {spray_in_each_nostril} susp ended Flonase Allergy Relief 50 MCG/ACT eCW1 ([facility]) Alprazolam 0.5 MG Oral Tablet [Xanax] Xanax 0.5 MG Xanax 0.5 MG 06/16/2021 12:00:00 AM EDT 1.0 {tablet_as_needed} active Xanax 0.5 MG eCW1 ([facility]) Alprazolam 0.5 MG Oral Tablet [Xanax] Xanax 0.5 MG Xanax 0.5 MG 06/16/2021 12:00:00 AM EDT 1.0 {tablet_as_needed} active Xanax 0.5 MG eCW1 ([facility]) Alprazolam 0.5 MG Oral Tablet [Xanax] Xanax 0.5 MG Xanax 0.5 MG 06/16/2021 12:00:00 AM EDT 1.0 {tablet_as_needed} active Xanax 0.5 MG eCW1 ([facility]) Alprazolam 0.5 MG Oral Tablet [Xanax] Xanax 0.5 MG Xanax 0.5 MG 05/22/2021 12:00:00 AM EDT 1.0 {tablet_as_needed} active Xanax 0.5 MG eCW1 ([facility]) Insurance Providers Payer name Policy type / Coverage type Policy ID Covered alliance party ID Covered alliance party's relationship to donald Policy Donald Plan Information MEDICARE [id number] SP [id number] A CIG [id number] SP [id number] CIGNA [id number] [facility] [id number] Medicare [place] Medicare Primary [id number] Self 1 [id number] Medicare [place] Medicare Primary [id number] Self 1 [id number] Medicare [place] Medicare Primary [id number] Self 1 [id number] MEDICARE [id number] SP [id number] A Medicare [place] Medicare Primary [id number] Self Medicare [place] Medicare Primary [id number] Self 1 [id number] Managed Care - [facility] P [id number] S [id number] MEDICARE COMPLETE [id number] SP [id number] [facility] P [id number] S [id number] Medicare S [id number] S [id number] A National Government Serv Medicare Primary -A [id number] Self [id number] [facility] [employer] Maintenance Organization (O) [id number] Self [id number] [facility] Health Maintenance Organization (HMO) [id number] Self [id number] National Government Serv Medicare Primary -A [id number] Self - ANS-Medicare Part B [id number] [facility] [id number] SP [id number] [facility] Medicare Commercial [id number] Self [id number] [facility] MEDICARE [id number] SP [id number] [facility] [id number] SP [id number] PGBA [facility] [id number] 2 [id number] [facility] Medicare Commercial [id number] Self [id number] FOR LIFE [id number] SP C [id number] FOR LIFE UNAVAILABLE U NAVAILABLE SELF PAY UNAVAILABLE UNAVAILA BLE MEDICAID [facility] [id number] SP [id number] CIGNA [id number] SPO [id number] CIGNA UNAVAILABLE UNAVAILA BLE MEDICARE COMPLETE [id number] SP [id number] MEDICARE COMPLETE [id number] SP [id number] MEDICARE COMPLETE [id number] SP [id number] MEDICARE COMPLETE-[facility] O [id number] S [id number] ANSI-Medicare Part B [id number] ANSI-Medicare Part B [id number] ANSI-Medicare Part B [id number] ANSI-Medicare Part B [id number] ANSI-Medicare Part B [id number] ANSI-Medicare Part B [id number] Uhc Medicare Complete Commercial [id number] Self [id number] [employer] Medicare Commercial [id number] Self [id number] ANSI-Medicare Part B [id number] ANSI-Medicare Part B [id number] ANSI-Medicare Part B [id number] Managed Care - [facility] [id number] S [id number] ANSI-Medicare Part B [id number] Problems, Conditions, and Diagnoses Code Display Name Description Problem Type Effective Dates Data Source(s) Q07.00 [id number] Arnold-Chiari malformation Problem 12:00:00 AM EDT eCW1 ([facility]) F41.9 [id number] Severe anxiety Problem 06/24/2021 12:00:00 A M EDT eCW1 ([facility]) J30.89 Allergic rhinitis Non-seasonal allergic rhinitis , unspecified trigger Problem 02/12/2021 12:00:00 AM EDT [facility]CW1 [facility] Surgeries/Procedures No Information Results ID Date Data Source [id number] 06/14/2021 09:24:00 AM EDT [facility] Name Value Range Interpretation Code Description Data Elizabeth rce(s) Supporting Document(s) SARS COVID ANTIGEN POSITIVE [facility] This lab was ordered by [facility] greene nd reported by [facility]. ID Date Data Source VITB12 & FOL 02/13/2021 12:00:00 AM EDT eCW1 ([facility]) Name Value Range Interpretation Code Description Data Elizabeth rce(s) Supporting Document(s) 10.6 FOLATE eCW1 ([facility]) 254 VITAMIN B12 LEVEL eCW1 ([facility]) ID Date Data Source VITAMIN D 25-HYDROXY 02/13/2021 12:00:00 AM EDT eCW1 ([facility]) Name Value Range Interpretation Code Description Data Elizabeth rce(s) Supporting Document(s) 22.6 30.0-100.0 TOTAL 25(OH) VITAMIN D eC W1 ([facility]) ID Date Data Source CBC with Differential 02/13/2021 12:00:00 AM EDT eCW1 ([facility]) Name Value Range Interpretation Code Description Data Elizabeth rce(s) Supporting Document(s) 6.3 4.0-10.0 WHITE BLOOD COUNT eCW1 ([facility]) 4.26 4.00-5.40 RED BLOOD COUNT eCW1 ([facility]) 13.1 12.0-15.5 HEMOGLOBIN eCW1 ([facility]) 40.6 36.0-47.0 HEMATOCRIT eCW1 ([facility]) 95.3 80.0-96.0 MEAN CORPUSCULAR VOLUME e CW1 ([facility]) 12.4 11.5-14.5 RED CELL DISTRIBUTION WID TH eCW1 ([facility]) 30.8 27.0-33.0 MEAN CORPUSCULAR HEMOGLOB IN eCW1 ([facility]) 32.3 32.0-36.5 MEAN CORPUSCULAR HGB CONC eCW1 ([facility]) 271 150-450 PLATELET COUNT, AUTOMATED eCW1 ([facility]) 60.8 36.0-66.0 NEUTROPHILS % eCW1 ([facility]) 29.3 24.0-44.0 LYMPH % eCW1 ([facility]) 8.3 2.0-8.0 MONO % eCW1 ([facility]) 0.6 0.0-3.0 EOS % eCW1 ([facility]) 0.8 0.0-1.0 BASO % eCW1 ([facility]) 1.8 1.5-5.0 LYMPH # eCW1 ([facility]) 0.5 0.0-0.8 MONO # eCW1 ([facility]) 3.8 1.5-8.5 NEUTROPHILS # eCW1 ([facility]) 0.1 0.0-0.2 BASO # eCW1 ([facility]) 0.0 0.0-0.5 EOS # eCW1 ([facility]) Procedure Social History Code Duration Value Status Description Data Source(s ) Smoking 07/23/2021 12:00:00 AM EDT Never Smoker completed Never S moker eCW1 ([facility]) Smoking 07/23/2021 12:00:00 AM EDT Never Smoker completed Never S moker eCW1 ([facility]) Smoking 07/23/2021 12:00:00 AM EDT Never Smoker completed Never S moker eCW1 ([facility]) Smoking 07/01/2021 12:00:00 AM EDT Never Smoker completed Never S moker eCW1 ([facility]) Smoking 07/01/2021 12:00:00 AM EDT Never Smoker completed Never S moker eCW1 ([facility]) Smoking 07/01/2021 12:00:00 AM EDT Never Smoker completed Never S moker eCW1 ([facility]) Smoking 07/01/2021 12:00:00 AM EDT Never Smoker completed Never S moker eCW1 ([facility]) Smoking 07/01/2021 12:00:00 AM EDT Never Smoker completed Never S moker eCW1 ([facility]) Smoking 07/01/2021 12:00:00 AM EDT Never Smoker completed Never S moker eCW1 ([facility]) Smoking 07/01/2021 12:00:00 AM EDT Never Smoker completed Never S moker eCW1 ([facility]) Smoking 07/01/2021 12:00:00 AM EDT Never Smoker completed Never S moker eCW1 ([facility]) Smoking 06/18/2021 12:00:00 AM EDT Never Smoker completed Never S moker eCW1 ([facility]) Smoking 06/18/2021 12:00:00 AM EDT Never Smoker completed Never S moker eCW1 ([facility]) Smoking 02/12/2021 12:00:00 AM EDT Never Smoker completed Never S moker eCW1 ([facility]) Smoking 02/12/2021 12:00:00 AM EDT Never Smoker completed Never S moker eCW1 ([facility]) Smoking 02/12/2021 12:00:00 AM EDT Never Smoker completed Never S moker eCW1 ([facility]) Smoking 02/12/2021 12:00:00 AM EDT Never Smoker completed Never S moker eCW1 ([facility]) Smoking 02/12/2021 12:00:00 AM EDT Never Smoker completed Never S moker eCW1 ([facility]) Smoking 02/12/2021 12:00:00 AM EDT Never Smoker completed Never S moker eCW1 ([facility]) Smoking 09/02/2020 12:00:00 AM EST Never Smoker completed Never S moker eCW1 ([facility]) Smoking 09/02/2020 12:00:00 AM EST Never Smoker completed Never S moker eCW1 ([facility]) Smoking 09/02/2020 12:00:00 AM EST Never Smoker completed Never S moker eCW1 ([facility]) Smoking 09/02/2020 12:00:00 AM EST Never Smoker completed Never S moker eCW1 ([facility]) Smoking 09/02/2020 12:00:00 AM EST Never Smoker completed Never S moker eCW1 ([facility]) Smoking 09/02/2020 12:00:00 AM EST Never Smoker completed Never S moker eCW1 ([facility]) Smoking 09/02/2020 12:00:00 AM EST Never Smoker completed Never S moker eCW1 ([facility]) Smoking 09/02/2020 12:00:00 AM EST Never Smoker completed Never S moker eCW1 ([facility]) Smoking 09/02/2020 12:00:00 AM EST Never Smoker completed Never S moker eCW1 ([facility]) Vital Signs ID Date Data Source UNK Name Value Range Interpretation Code Description Data Source(s) Body weight 183 [lb_av] 183 [lb_av] eCW1 ([facility]) Body weight 83.01 kg 83.01 kg eCW1 ([facility]) Body height 62 [in_i] 62 [in_i] eCW1 ([facility]) Body mass index (BMI) [Ratio] 33.47 kg/m2 33.47 kg/m2 eCW1 ([facility]) Heart rate 71 /min 71 /min eCW1 ([facility]) Respiratory rate 18 /min 18 /min eCW1 ([facility]) Body temperature 97.9 [degF] 97.9 [degF] eCW1 ( [facility]) Systolic blood pressure 102 mm[Hg] 102 mm[Hg] e CW1 ([facility]) Diastolic blood pressure 66 mm[Hg] 66 mm[Hg] eCW1 ([facility]) Body weight 186 [lb_av] 186 [lb_av] eCW1 ([facility]) Body weight 84.37 kg 84.37 kg eCW1 ([facility]) Body height 62 [in_i] 62 [in_i] eCW1 ([facility]) Body mass index (BMI) [Ratio] 34.02 kg/m2 34.02 kg/m2 eCW1 ([facility]) Heart rate 78 /min 78 /min eCW1 ([facility]) Respiratory rate 17 /min 17 /min eCW1 ([facility]) Body temperature 97.5 [degF] 97.5 [degF] eCW1 ( [facility]) Systolic blood pressure 95 mm[Hg] 95 mm[Hg] e CW1 ([facility]) Diastolic blood pressure 65 mm[Hg] 65 mm[Hg] eCW1 ([facility]) Body weight 186.2 [lb_av] 186.2 [lb_av] eCW1 ([facility]) Body weight 84.46 kg 84.46 kg eCW1 ([facility]) Body height 62 [in_i] 62 [in_i] eCW1 ([facility]) Body mass index (BMI) [Ratio] 34.05 kg/m2 34.05 kg/m2 eCW1 ([facility]) Heart rate 88 /min 88 /min eCW1 ([facility]) Respiratory rate 18 /min 18 /min eCW1 ([facility]) Body temperature 97.0 [degF] 97.0 [degF] eCW1 ( [facility]) Systolic blood pressure 107 mm[Hg] 107 mm[Hg] e CW1 ([facility]) Diastolic blood pressure 72 mm[Hg] 72 mm[Hg] eCW1 ([facility]) Body weight 187.4 [lb_av] 187.4 [lb_av] eCW1 ([facility]) Body weight 85 kg 85 kg eCW1 ([facility]) Body height 62 [in_i] 62 [in_i] eCW1 ([facility]) Body mass index (BMI) [Ratio] 34.27 kg/m2 34.27 kg/m2 eCW1 ([facility]) Heart rate 95 /min 95 /min eCW1 ([facility] Respiratory rate 17 /min 17 /min eCW1 ([facility]) Body temperature 97.1 [degF] 97.1 [degF] eCW1 ( [facility]) Systolic blood pressure 119 mm[Hg] 119 mm[Hg] e CW1 ([facility]) Diastolic blood pressure 73 mm[Hg] 73 mm[Hg] eCW1 ([facility]) Body weight 188.2 [lb_av] 188.2 [lb_av] eCW1 ([facility]) Body height 62 [in_i] 62 [in_i] eCW1 ([facility]) Body mass index (BMI) [Ratio] 34.42 kg/m2 34.42 kg/m2 eCW1 ([facility]) Heart rate 48 /min 48 /min eCW1 ([facility]) Respiratory rate 17 /min 17 /min eCW1 ([facility]) Body temperature 97.1 [degF] 97.1 [degF] eCW1 ( [facility]) Systolic blood pressure 110 mm[Hg] 110 mm[Hg] e CW1 ([facility]) Diastolic blood pressure 57 mm[Hg] 57 mm[Hg] eCW1 ([facility]) Body weight 182 [lb_av] 182 [lb_av] eCW1 ([facility]) Body weight 82.55 kg 82.55 kg eCW1 ([facility]) Body height 62 [in_i] 62 [in_i] eCW1 ([facility]) Body mass index (BMI) [Ratio] 33.28 kg/m2 33.28 kg/m2 eCW1 ([facility]) Systolic blood pressure 120 mm[Hg] 120 mm[Hg] e CW1 ([facility]) Diastolic blood pressure 74 mm[Hg] 74 mm[Hg] eCW1 ([facility]) Patient Treatment Plan of Care Planned Activity Planned Date Details Description Data Source (s) Alprazolam 0.5 MG Oral Tablet [Xanax] 07/23/2021 12:00:00 AM EDT eCW1 ([facility]) Alprazolam 0.5 MG Oral Tablet [Xanax] 07/23/2021 12:00:00 AM EDT eCW1 ([facility]) Alprazolam 0.5 MG Oral Tablet [Xanax] 07/23/2021 12:00:00 AM EDT eCW1 ([facility]) Alprazolam 0.5 MG Oral Tablet [Xanax] 07/09/2021 12:00:00 AM EDT eCW1 ([facility]) Alprazolam 0.5 MG Oral Tablet [Xanax] 07/09/2021 12:00:00 AM EDT eCW1 ([facility]) Alprazolam 0.5 MG Oral Tablet [Xanax] 07/09/2021 12:00:00 AM EDT eCW1 ([facility]) Alprazolam 0.5 MG Oral Tablet [Xanax] 07/09/2021 12:00:00 AM EDT eCW1 ([facility]) Alprazolam 0.5 MG Oral Tablet [Xanax] 07/09/2021 12:00:00 AM EDT eCW1 ([facility]) Alprazolam 0.5 MG Oral Tablet [Xanax] 07/09/2021 12:00:00 AM EDT eCW1 ([facility]) Flonase Allergy Relief 50 MCG/ACT 06/18/2021 12:00:00 AM EDT eCW1 ([facility]) Flonase Allergy Relief 50 MCG/ACT 06/18/2021 12:00:00 AM EDT eCW1 ([facility]) Alprazolam 0.5 MG Oral Tablet [Xanax] 06/16/2021 12:00:00 AM EDT eCW1 ([facility]) Alprazolam 0.5 MG Oral Tablet [Xanax] 05/22/2021 12:00:00 AM EDT eCW1 ([facility])
[2021-08-03] MEDS ORDERED: LORazepam 1 MG TAB PO STA (14:25)
--- OUTSIDE RECORDS SUMMARY | 2021-08-03 14:53 | CCD ---
Author Author [facility] Organization [facility] Address Unknown Phone Unavailable Support Name Relationship Address Phone Eneida Sanchez DDS Next Of Kin [address] [place], [place] [phone] CHRISMiguel PLATA Next Of Kin [address] [address] DISABLED Next Of Kin Unknown Unavailable UE Next Of Kin Unknown Unavailable UN Next Of Kin Unknown Unavailable HOMEMAKER Next Of Kin Unknown Unavailable Miguel RASMUSSEN Next Of Kin [address] [place] [address] TENA TRIPP [place] [address] CHRISMIKKI PLATA ECON [address] [address] Unavailable IRMA RASMUSSEN ECON [address] [place] [phone] Re-disclosure Warning The records that you are [...] is protected by Article 27-F of the [facility] Public Health law. If you continue you may have access to information: Regarding HIV / AIDS; Provided by facilities licensed or operated by the [facility] Office of Mental Health; or Provided by the [facility] Office for People With Developmental Disabilities. If such information is present, then the following [facility] mandated warning applies: This information has [...] law may result in a fine or chcf sentence or both. A general authorization for the release of medical or other information is NOT sufficient authorization for further disc losure. Family History Family Member Name Family Member Gender Family Member Status Date o f Status Description Data Source(s) Unknown Unknown Problem MEDENT ([facility], ) Encounters Encounter Providers Location Date Indications Data Source(s ) (TV_Virtual) Virtual Enc Tel Health Visit [address] [place] [address] 07/28/2021 12:00:00 AM EDT eCW1 ([facility]) Unknown [address] [facility] [address] 07/27/2021 12:00:00 AM EDT eCW1 ([facility]) Outpatient [address] [facility] [address] 07/23/2021 12:00:00 AM EDT eCW1 ([facility]) (TV_Virtual) Virtual Enc Tel Health Visit [address] [place] [address] 07/13/2021 12:00:00 AM EDT eCW1 ([facility]) Unknown [address] [facility] [address] 07/10/2021 12:00:00 AM EDT eCW1 ([facility]) Unknown [address] [facility] [address] 07/07/2021 12:00:00 AM EDT eCW1 ([facility]) (TV_Virtual) Virtual Enc [facility] Health Visit [address] [place] [address] 07/06/2021 12:00:00 AM EDT eCW1 ([facility]) [place] [address] [facility] [address] 07/02/2021 12:00:00 AM EDT eCW1 ([facility]) [place] [address] [facility] [address] 07/01/2021 12:00:00 AM EDT eCW1 ([facility]) ([facility]) [facility] Health Scheduled Visit [address] [place] [address] 06/30/2021 12:00:00 AM EDT eCW1 ([facility]) [place]patient [address] [facility] [address] 06/24/2021 12:00:00 AM EDT eCW1 ([facility]) [place] [address] [facility] [address] 06/18/2021 12:00:00 AM EDT eCW1 ([facility]) [place] [address] [facility] [address] 06/16/2021 12:00:00 AM EDT eCW1 ([facility]) [place] [address] [facility] [address] 06/15/2021 12:00:00 AM EDT eCW1 ([facility]) [place] [address] [facility] [address] 05/21/2021 12:00:00 AM EDT eCW1 ([facility]) [place] [address] [facility] [address] 04/23/2021 12:00:00 AM EDT eCW1 ([facility]) [place] [address] [facility] [address] 02/23/2021 12:00:00 AM EDT eCW1 ([facility]) [place] [address] [facility] [address] 02/19/2021 12:00:00 AM EDT eCW1 ([facility]) [place] [address] [facility] [address] 02/12/2021 12:00:00 AM EDT eCW1 ([facility]) [place] [address] [facility] [address] 01/26/2021 12:00:00 AM EDT eCW1 ([facility]) [place] [address] [facility] [address] 12/25/2020 12:00:00 AM EST eCW1 ([facility]) [place] [address] [facility] [address] 11/27/2020 12:00:00 AM EST eCW1 ([facility]) Unknown [address] [facility] [address] 11/25/2020 12:00:00 AM EST eCW1 ([facility]) [place] [address] [facility] [address] 10/29/2020 12:00:00 AM EST eCW1 ([facility]) Unknown [address] [facility] [address] 10/02/2020 12:00:00 AM EST eCW1 ([facility]) Unknown [address] [facility] [address] 09/05/2020 12:00:00 AM EST eCW1 ([facility]) Unknown [address] [facility] [address] 09/03/2020 12:00:00 AM EST eCW1 ([facility]) [place]patient [address] [facility] [address] 09/02/2020 12:00:00 AM EST eCW1 ([facility]) Unknown [address] [facility] [address] 08/07/2020 12:00:00 AM EDT eCW1 ([facility]) Unknown [address] [facility] [address] 07/30/2020 12:00:00 AM EDT eCW1 ([facility]) Unknown [address] [facility], [facility] [address] 07/15/2020 12:00:00 AM EDT eCW1 ([facility]) Medications Medication Brand Name Start Date Product Form Dose Route Admi nistrative Instructions Pharmacy Instructions Status Indications Reaction Description Data Source(s) Alprazolam 0.5 MG Oral Tablet [Xanax] Xanax 0.5 MG Xanax 0.5 MG 07/23/2021 12:00:00 AM EDT 1.0 {tablet_as_needed} active Xanax 0.5 MG eCW1 ([facility]) Alprazolam 0.5 MG Oral Tablet [Xanax] Xanax 0.5 MG Xanax 0.5 MG 07/23/2021 12:00:00 AM EDT 1.0 {tablet_as_needed} active Xanax 0.5 MG eCW1 ([facility]) Alprazolam 0.5 MG Oral Tablet [Xanax] Xanax 0.5 MG Xanax 0.5 MG 07/23/2021 12:00:00 AM EDT 1.0 {tablet_as_needed} active Xanax 0.5 MG eCW1 ([facility]) Alprazolam 0.5 MG Oral Tablet [Xanax] Xanax 0.5 MG Xanax 0.5 MG 07/09/2021 12:00:00 AM EDT 1.0 {tablet_as_needed} active Xanax 0.5 MG eCW1 ([facility]) Alprazolam 0.5 MG Oral Tablet [Xanax] Xanax 0.5 MG Xanax 0.5 MG 07/09/2021 12:00:00 AM EDT 1.0 {tablet_as_needed} active Xanax 0.5 MG eCW1 ([facility]) Alprazolam 0.5 MG Oral Tablet [Xanax] Xanax 0.5 MG Xanax 0.5 MG 07/09/2021 12:00:00 AM EDT 1.0 {tablet_as_needed} active Xanax 0.5 MG eCW1 ([facility]) Alprazolam 0.5 MG Oral Tablet [Xanax] Xanax 0.5 MG Xanax 0.5 MG 07/09/2021 12:00:00 AM EDT 1.0 {tablet_as_needed} active Xanax 0.5 MG eCW1 ([facility]) Alprazolam 0.5 MG Oral Tablet [Xanax] Xanax 0.5 MG Xanax 0.5 MG 07/09/2021 12:00:00 AM EDT 1.0 {tablet_as_needed} active Xanax 0.5 MG eCW1 ([facility]) Alprazolam 0.5 MG Oral Tablet [Xanax] Xanax 0.5 MG Xanax 0.5 MG 07/09/2021 12:00:00 AM EDT 1.0 {tablet_as_needed} active Xanax 0.5 MG eCW1 ([facility]) Alprazolam 0.5 MG Oral Tablet [Xanax] Xanax 0.5 MG Xanax 0.5 MG 06/24/2021 12:00:00 AM EDT 1.0 {tablet_as_needed} active Xanax 0.5 MG eCW1 ([facility]) Alprazolam 0.5 MG Oral Tablet [Xanax] Xanax 0.5 MG Xanax 0.5 MG 06/24/2021 12:00:00 AM EDT 1.0 {tablet_as_needed} active Xanax 0.5 MG eCW1 ([facility]) Flonase Allergy Relief 50 MCG/ACT Flonase Allergy Relief 50 MCG/ACT 06/18/2021 12:00:00 AM EDT 1.0 {spray_in_each_nostril} acti ve Flonase Allergy Relief 50 MCG/ACT eCW1 ([facility]) Flonase Allergy Relief 50 MCG/ACT Flonase Allergy Relief 50 MCG/ACT 06/18/2021 12:00:00 AM EDT 1.0 {spray_in_each_nostril} susp ended Flonase Allergy Relief 50 MCG/ACT eCW1 ([facility]) Flonase Allergy Relief 50 MCG/ACT Flonase Allergy Relief 50 MCG/ACT 06/18/2021 12:00:00 AM EDT 1.0 {spray_in_each_nostril} susp ended Flonase Allergy Relief 50 MCG/ACT eCW1 ([facility]) Flonase Allergy Relief 50 MCG/ACT Flonase Allergy Relief 50 MCG/ACT 06/18/2021 12:00:00 AM EDT 1.0 {spray_in_each_nostril} susp ended Flonase Allergy Relief 50 MCG/ACT eCW1 ([facility]) Flonase Allergy Relief 50 MCG/ACT Flonase Allergy Relief 50 MCG/ACT 06/18/2021 12:00:00 AM EDT 1.0 {spray_in_each_nostril} acti ve Flonase Allergy Relief 50 MCG/ACT eCW1 ([facility]) Flonase Allergy Relief 50 MCG/ACT Flonase Allergy Relief 50 MCG/ACT 06/18/2021 12:00:00 AM EDT 1.0 {spray_in_each_nostril} susp ended Flonase Allergy Relief 50 MCG/ACT eCW1 ([facility]) Flonase Allergy Relief 50 MCG/ACT Flonase Allergy Relief 50 MCG/ACT 06/18/2021 12:00:00 AM EDT 1.0 {spray_in_each_nostril} susp ended Flonase Allergy Relief 50 MCG/ACT eCW1 ([facility]) Flonase Allergy Relief 50 MCG/ACT Flonase Allergy Relief 50 MCG/ACT 06/18/2021 12:00:00 AM EDT 1.0 {spray_in_each_nostril} susp ended Flonase Allergy Relief 50 MCG/ACT eCW1 ([facility]) Flonase Allergy Relief 50 MCG/ACT Flonase Allergy Relief 50 MCG/ACT 06/18/2021 12:00:00 AM EDT 1.0 {spray_in_each_nostril} susp ended Flonase Allergy Relief 50 MCG/ACT eCW1 ([facility]) Flonase Allergy Relief 50 MCG/ACT Flonase Allergy Relief 50 MCG/ACT 06/18/2021 12:00:00 AM EDT 1.0 {spray_in_each_nostril} susp ended Flonase Allergy Relief 50 MCG/ACT eCW1 ([facility]) Flonase Allergy Relief 50 MCG/ACT Flonase Allergy Relief 50 MCG/ACT 06/18/2021 12:00:00 AM EDT 1.0 {spray_in_each_nostril} susp ended Flonase Allergy Relief 50 MCG/ACT eCW1 ([facility]) Flonase Allergy Relief 50 MCG/ACT Flonase Allergy Relief 50 MCG/ACT 06/18/2021 12:00:00 AM EDT 1.0 {spray_in_each_nostril} susp ended Flonase Allergy Relief 50 MCG/ACT eCW1 ([facility]) Flonase Allergy Relief 50 MCG/ACT Flonase Allergy Relief 50 MCG/ACT 06/18/2021 12:00:00 AM EDT 1.0 {spray_in_each_nostril} susp ended Flonase Allergy Relief 50 MCG/ACT eCW1 ([facility]) Alprazolam 0.5 MG Oral Tablet [Xanax] Xanax 0.5 MG Xanax 0.5 MG 06/16/2021 12:00:00 AM EDT 1.0 {tablet_as_needed} active Xanax 0.5 MG eCW1 ([facility]) Alprazolam 0.5 MG Oral Tablet [Xanax] Xanax 0.5 MG Xanax 0.5 MG 06/16/2021 12:00:00 AM EDT 1.0 {tablet_as_needed} active Xanax 0.5 MG eCW1 ([facility]) Alprazolam 0.5 MG Oral Tablet [Xanax] Xanax 0.5 MG Xanax 0.5 MG 06/16/2021 12:00:00 AM EDT 1.0 {tablet_as_needed} active Xanax 0.5 MG eCW1 ([facility]) Alprazolam 0.5 MG Oral Tablet [Xanax] Xanax 0.5 MG Xanax 0.5 MG 05/22/2021 12:00:00 AM EDT 1.0 {tablet_as_needed} active Xanax 0.5 MG eCW1 ([facility]) Insurance Providers Payer name Policy type / Coverage type Policy ID Covered libertarian ID Covered libertarian's relationship to donald Policy Donald Plan Information MEDICARE [id number] SP [id number] A CIG [id number] SP [id number] CIGNA [id number] [facility] [id number] Medicare [place] Medicare Primary [id number] Self 1 [id number] Medicare [place] Medicare Primary [id number] Self 1 [id number] Medicare [place] Medicare Primary [id number] Self 1 [id number] MEDICARE [id number] SP [id number] A Medicare [place] Medicare Primary [id number] Self Medicare [place] Medicare Primary [id number] Self 1 [id number] [address] Care - [facility] P [id number] S [id number] MEDICARE COMPLETE [id number] SP [id number] [facility] Horizons P [id number] S [id number] Medicare S [id number] S [id number] A National Government Serv Medicare Primary -A [id number] Self [id number] [facility] [employer] Maintenance Organization (O) [id number] Self [id number] [facility] Health Maintenance Organization (HMO) [id number] Self [id number] National Government Serv Medicare Primary -A [id number] Self - ANS-Medicare Part B [id number] [facility] [id number] SP [id number] [facility] Medicare Commercial [id number] Self [id number] [facility] MEDICARE [id number] SP [id number] [facility] [id number] SP [id number] [facility] [id number] [id number] [facility] Medicare Commercial [id number] Self [id number] FOR LIFE [id number] SP C [id number] FOR LIFE UNAVAILABLE U NAVAILABLE SELF PAY UNAVAILABLE UNAVAILA BLE MEDICAID [facility] [id number] SP [id number] CIGNA [id number] SPO [id number] CIGNA UNAVAILABLE UNAVAILA BLE MEDICARE COMPLETE [id number] SP [id number] MEDICARE COMPLETE [id number] SP [id number] MEDICARE COMPLETE [id number] SP [id number] MEDICARE COMPLETE-[facility] O [id number] S [id number] ANSI-Medicare Part B [id number] ANSI-Medicare Part B [id number] ANSI-Medicare Part B [id number] ANSI-Medicare Part B [id number] ANSI-Medicare Part B [id number] ANSI-Medicare Part B [id number] Uhc Medicare Complete Commercial [id number] Self [id number] [employer] Medicare Commercial [id number] Self [id number] ANSI-Medicare Part B [id number] ANSI-Medicare Part B [id number] ANSI-Medicare Part B [id number] Managed Care - [facility] [id number] S [id number] ANSI-Medicare Part B [id number] Problems, Conditions, and Diagnoses Code Display Name Description Problem Type Effective Dates Data Source(s) Q07.00 [id number] Arnold-Chiari malformation Problem 12:00:00 AM EDT eCW1 ([facility]) F41.9 [id number] Severe anxiety Problem 06/24/2021 12:00:00 A M EDT eCW1 ([facility]) J30.89 Allergic rhinitis Non-seasonal allergic rhinitis , unspecified trigger Problem 02/12/2021 12:00:00 AM EDT eCW1 ([facility]) Surgeries/Procedures No Information Results ID Date Data Source [id number] 06/14/2021 09:24:00 AM EDT [facility] Name Value Range Interpretation Code Description Data Elizabeth rce(s) Supporting Document(s) SARS COVID ANTIGEN POSITIVE [facility] This lab was ordered by [facility] greene nd reported by [facility]. ID Date Data Source VITB12 & FOL 02/13/2021 12:00:00 AM EDT eCW1 ([facility]) Name Value Range Interpretation Code Description Data Elizabeth rce(s) Supporting Document(s) 10.6 FOLATE eCW1 ([facility]) 254 VITAMIN B12 LEVEL eCW1 (Counts include 234 beds at the [facility]) ID Date Data Source VITAMIN D 25-[id number] 02/13/2021 12:00:00 AM EDT eCW1 (Counts include 234 beds at the [facility]) Name Value Range Interpretation Code Description Data Elizabeth rce(s) Supporting Document(s) 22.6 30.0-100.0 TOTAL 25(OH) VITAMIN D eC W1 ([facility]) ID Date Data Source CBC with Differential 02/13/2021 12:00:00 AM EDT eCW1 ([facility]) Name Value Range Interpretation Code Description Data Elizabeth rce(s) Supporting Document(s) 6.3 4.0-10.0 WHITE BLOOD COUNT eCW1 (Counts include 234 beds at the [facility]) 4.26 4.00-5.40 RED BLOOD COUNT eCW1 ([facility]) 13.1 12.0-15.5 HEMOGLOBIN eCW1 ([facility]) 40.6 36.0-47.0 HEMATOCRIT eCW1 ([facility]) 95.3 80.0-96.0 MEAN CORPUSCULAR VOLUME e CW1 ([facility]) 12.4 11.5-14.5 RED CELL DISTRIBUTION WID TH eCW1 ([facility]) 30.8 27.0-33.0 MEAN CORPUSCULAR HEMOGLOB IN eCW1 ([facility]) 32.3 32.0-36.5 MEAN CORPUSCULAR HGB CONC eCW1 ([facility]) 271 150-450 PLATELET COUNT, AUTOMATED eCW1 ([facility]) 60.8 36.0-66.0 NEUTROPHILS % eCW1 ([facility]) 29.3 24.0-44.0 LYMPH % eCW1 ([facility]) 8.3 2.0-8.0 MONO % eCW1 ([facility]) 0.6 0.0-3.0 EOS % eCW1 ([facility]) 0.8 0.0-1.0 BASO % eCW1 ([facility]) 1.8 1.5-5.0 LYMPH # eCW1 ([facility]) 0.5 0.0-0.8 MONO # eCW1 ([facility]) 3.8 1.5-8.5 NEUTROPHILS # eCW1 ([facility]) 0.1 0.0-0.2 BASO # eCW1 ([facility]) 0.0 0.0-0.5 EOS # eCW1 ([facility]) Procedure Social History Code Duration Value Status Description Data Source(s ) Smoking 07/23/2021 12:00:00 AM EDT Never Smoker completed Never S moker eCW1 ([facility]) Smoking 07/23/2021 12:00:00 AM EDT Never Smoker completed Never S moker eCW1 ([facility]) Smoking 07/23/2021 12:00:00 AM EDT Never Smoker completed Never S moker eCW1 ([facility]) Smoking 07/01/2021 12:00:00 AM EDT Never Smoker completed Never S moker eCW1 ([facility]) Smoking 07/01/2021 12:00:00 AM EDT Never Smoker completed Never S moker eCW1 ([facility]) Smoking 07/01/2021 12:00:00 AM EDT Never Smoker completed Never S moker eCW1 ([facility]) Smoking 07/01/2021 12:00:00 AM EDT Never Smoker completed Never S moker eCW1 ([facility]) Smoking 07/01/2021 12:00:00 AM EDT Never Smoker completed Never S moker eCW1 ([facility]) Smoking 07/01/2021 12:00:00 AM EDT Never Smoker completed Never S moker eCW1 ([facility]) Smoking 07/01/2021 12:00:00 AM EDT Never Smoker completed Never S moker eCW1 ([facility]) Smoking 07/01/2021 12:00:00 AM EDT Never Smoker completed Never S moker eCW1 ([facility]) Smoking 06/18/2021 12:00:00 AM EDT Never Smoker completed Never S moker eCW1 ([facility]) Smoking 06/18/2021 12:00:00 AM EDT Never Smoker completed Never S moker eCW1 ([facility]) Smoking 02/12/2021 12:00:00 AM EDT Never Smoker completed Never S moker eCW1 ([facility]) Smoking 02/12/2021 12:00:00 AM EDT Never Smoker completed Never S moker eCW1 ([facility]) Smoking 02/12/2021 12:00:00 AM EDT Never Smoker completed Never S moker eCW1 ([facility]) Smoking 02/12/2021 12:00:00 AM EDT Never Smoker completed Never S moker eCW1 ([facility]) Smoking 02/12/2021 12:00:00 AM EDT Never Smoker completed Never S moker eCW1 ([facility]) Smoking 02/12/2021 12:00:00 AM EDT Never Smoker completed Never S moker eCW1 ([facility]) Smoking 09/02/2020 12:00:00 AM EST Never Smoker completed Never S moker eCW1 ([facility]) Smoking 09/02/2020 12:00:00 AM EST Never Smoker completed Never S moker eCW1 ([facility]) Smoking 09/02/2020 12:00:00 AM EST Never Smoker completed Never S moker eCW1 ([facility]) Smoking 09/02/2020 12:00:00 AM EST Never Smoker completed Never S moker eCW1 ([facility]) Smoking 09/02/2020 12:00:00 AM EST Never Smoker completed Never S moker eCW1 ([facility]) Smoking 09/02/2020 12:00:00 AM EST Never Smoker completed Never S moker eCW1 ([facility]) Smoking 09/02/2020 12:00:00 AM EST Never Smoker completed Never S moker eCW1 ([facility]) Smoking 09/02/2020 12:00:00 AM EST Never Smoker completed Never S moker eCW1 ([facility]) Smoking 09/02/2020 12:00:00 AM EST Never Smoker completed Never S moker eCW1 ([facility]) Vital Signs ID Date Data Source UNK Name Value Range Interpretation Code Description Data Source(s) Body weight 183 [lb_av] 183 [lb_av] W1 ([facility]) Respiratory rate 18 /min 18 /min eCW1 ([facility]) Body temperature 97.9 [degF] 97.9 [degF] eCW1 ( [facility]) Systolic blood pressure 102 mm[Hg] 102 mm[Hg] e CW1 ([facility]) Diastolic blood pressure 66 mm[Hg] 66 mm[Hg] eCW1 ([facility]) Body weight 83.01 kg 83.01 kg W1 ([facility]) Body height 62 [in_i] 62 [in_i] W1 ([facility]) Body mass index (BMI) [Ratio] 33.47 kg/m2 33.47 kg/m2 eCW1 ([facility]) Heart rate 71 /min 71 /min eCW1 ([facility]) Body weight 186 [lb_av] 186 [lb_av] eCW1 ([facility]) Heart rate 78 /min 78 /min eCW1 ([facility]) Body weight 84.37 kg 84.37 kg eCW1 ([facility]) Respiratory rate 17 /min 17 /min eCW1 ([facility]) Body temperature 97.5 [degF] 97.5 [degF] eCW1 ( [facility]) Systolic blood pressure 95 mm[Hg] 95 mm[Hg] e CW1 ([facility]) Diastolic blood pressure 65 mm[Hg] 65 mm[Hg] eCW1 ([facility]) Body height 62 [in_i] 62 [in_i] eCW1 ([facility]) Body mass index (BMI) [Ratio] 34.02 kg/m2 34.02 kg/m2 eCW1 ([facility]) Body weight 186.2 [lb_av] 186.2 [lb_av] eCW1 ([facility]) Body weight 84.46 kg 84.46 kg eCW1 ([facility]) Body height 62 [in_i] 62 [in_i] eCW1 ([facility]) Body mass index (BMI) [Ratio] 34.05 kg/m2 34.05 kg/m2 eCW1 ([facility]) Heart rate 88 /min 88 /min eCW1 ([facility]) Respiratory rate 18 /min 18 /min eCW1 ([facility]) Body temperature 97.0 [degF] 97.0 [degF] eCW1 ( [facility]) Systolic blood pressure 107 mm[Hg] 107 mm[Hg] e CW1 ([facility]ly [facility]) Diastolic blood pressure 72 mm[Hg] 72 mm[Hg] eCW1 ([facility]) Body weight 187.4 [lb_av] 187.4 [lb_av] eCW1 ([facility]) Body weight 85 kg 85 kg eCW1 ([facility]) Body height 62 [in_i] 62 [in_i] eCW1 ([facility]) Body mass index (BMI) [Ratio] 34.27 kg/m2 34.27 kg/m2 eCW1 ([facility]) Heart rate 95 /min 95 /min eCW1 ([facility]) Respiratory rate 17 /min 17 /min eCW1 ([facility]) Body temperature 97.1 [degF] 97.1 [degF] eCW1 ( [facility]) Systolic blood pressure 119 mm[Hg] 119 mm[Hg] e CW1 ([facility]) Diastolic blood pressure 73 mm[Hg] 73 mm[Hg] eCW1 ([facility]) Body weight 188.2 [lb_av] 188.2 [lb_av] eCW1 ([facility]) Body height 62 [in_i] 62 [in_i] eCW1 ([facility]) Body mass index (BMI) [Ratio] 34.42 kg/m2 34.42 kg/m2 eCW1 ([facility]) Heart rate 48 /min 48 /min eCW1 ([facility]) Respiratory rate 17 /min 17 /min eCW1 ([facility]) Body temperature 97.1 [degF] 97.1 [degF] eCW1 ( [facility]) Systolic blood pressure 110 mm[Hg] 110 mm[Hg] e CW1 ([facility]) Diastolic blood pressure 57 mm[Hg] 57 mm[Hg] eCW1 ([facility]) Body weight 182 [lb_av] 182 [lb_av] eCW1 ([facility]) Body weight 82.55 kg 82.55 kg eCW1 ([facility]) Body height 62 [in_i] 62 [in_i] eCW1 ([facility]) Body mass index (BMI) [Ratio] 33.28 kg/m2 33.28 kg/m2 eCW1 ([facility]) Systolic blood pressure 120 mm[Hg] 120 mm[Hg] e CW1 ([facility]) Diastolic blood pressure 74 mm[Hg] 74 mm[Hg] eCW1 ([facility]) Patient Treatment Plan of Care Planned Activity Planned Date Details Description Data Source (s) Alprazolam 0.5 MG Oral Tablet [Xanax] 07/23/2021 12:00:00 AM EDT eCW1 ([facility]) Alprazolam 0.5 MG Oral Tablet [Xanax] 07/23/2021 12:00:00 AM EDT eCW1 ([facility]) Alprazolam 0.5 MG Oral Tablet [Xanax] 07/23/2021 12:00:00 AM EDT eCW1 ([facility]) Alprazolam 0.5 MG Oral Tablet [Xanax] 07/09/2021 12:00:00 AM EDT eCW1 ([facility]) Alprazolam 0.5 MG Oral Tablet [Xanax] 07/09/2021 12:00:00 AM EDT eCW1 ([facility]) Alprazolam 0.5 MG Oral Tablet [Xanax] 07/09/2021 12:00:00 AM EDT eCW1 ([facility]) Alprazolam 0.5 MG Oral Tablet [Xanax] 07/09/2021 12:00:00 AM EDT eCW1 ([facility]) Alprazolam 0.5 MG Oral Tablet [Xanax] 07/09/2021 12:00:00 AM EDT eCW1 ([facility]) Alprazolam 0.5 MG Oral Tablet [Xanax] 07/09/2021 12:00:00 AM EDT eCW1 ([facility]) Flonase Allergy Relief 50 MCG/ACT 06/18/2021 12:00:00 AM EDT eCW1 ([facility]) Flonase Allergy Relief 50 MCG/ACT 06/18/2021 12:00:00 AM EDT eCW1 ([facility]) Alprazolam 0.5 MG Oral Tablet [Xanax] 06/16/2021 12:00:00 AM EDT eCW1 ([facility]) Alprazolam 0.5 MG Oral Tablet [Xanax] 05/22/2021 12:00:00 AM EDT eCW1 ([facility])
[2021-08-03 15:32] LABS: HEMATOCRIT 43.3 % (36.0-47.0); HEMOGLOBIN 14.3 g/dl (12.0-15.5); MEAN CORPUSCULAR HEMOGLOBIN 31.3 pg (27.0-33.0); MEAN CORPUSCULAR VOLUME 94.7 fl (80.0-96.0); PLATELET COUNT, AUTOMATED 319 10^3/uL (150-450); RED BLOOD COUNT 4.57 10^6/uL (4.00-5.40)
[2021-08-03 16:03] LABS: AMPHETAMINES LEVEL URINE NEGATIVE (NEGATIVE); BARBITURATES URINE NEGATIVE (NEGATIVE); BENZODIAZEPINES URINE POSITIVE (NEGATIVE); CANNABINOIDS URINE NEGATIVE (NEGATIVE); COCAINE METABOLITE URINE NEGATIVE (NEGATIVE); METHADONE URINE NEGATIVE (NEGATIVE); OPIATES URINE NEGATIVE (NEGATIVE); PHENCYCLIDINE URINE NEGATIVE (NEGATIVE)
[2021-08-03 16:21] LABS: RSV AMPLIFICATION NEGATIVE (NEGATIVE)
[2021-08-03 16:23] LABS: ACETAMINOPHEN LEVEL < 2.0 UG/ML (10.0-30.0); ALBUMIN 4.1 GM/DL (3.2-5.2); ALT/SGPT 22 U/L (12-78); BILIRUBIN,DIRECT 0.1 MG/DL (0.0-0.2); BILIRUBIN,TOTAL 0.5 MG/DL (0.2-1.0); BLOOD UREA NITROGEN 7 MG/DL (7-18); CALCIUM LEVEL 9.2 MG/DL (8.5-10.1); CARBON DIOXIDE LEVEL 31 MEQ/L (21-32); CHLORIDE LEVEL 104 MEQ/L (98-107); ETHYL ALCOHOL (ETHANOL) < 0.003 % (0.000-0.010); GLOMERULAR FILTRATION RATE > 60.0 (>58); GLUCOSE, FASTING 105 MG/DL (70-100); SALICYLATE LEVEL < 1.7 MG/DL (5.0-30.0); SODIUM LEVEL 141 MEQ/L (136-145); TOTAL PROTEIN 7.7 GM/DL (6.4-8.2)
[2021-08-03] MEDS ORDERED: XANA0.5T PO (20:37)
[2021-08-03] MEDS ORDERED: LEXA1TAB PO (20:37)
[2021-08-03] MEDS ORDERED: ATIV1TAB10 PO (20:37)
[2021-08-03] MEDS ORDERED: MULTTAB61 PO (20:37)
[2021-08-03] MEDS ORDERED: HOME MED LIST COMPLETE! XX SCH (20:40)
--- NOTE | 2021-08-03 20:40 | MHIPNPDOC ---
[facility] Progress Note Progress Note DATE OF SERVICE: 08/03/21 Patient presented by guerita SNOWDEN to be voluntarily admitted. Has been cutting 20 mg lexapro in half not following prescription, then re-prescibed 10 mg and has been cutting in half. Per outside provider would likely benefit from admission, due to worsening anxiety and panic attacks, dx with panic disorder and anxiety 20 yrs ago. Due to anxiety symptoms unable to function or complete instrumental ADLs, feels overwhelmed and that she needs medications adjusted as she is extremely anxious and overwhelmed by anxiety spells. Vital Signs Vital Signs Date Time Temp Pulse Resp B/P (MAP) Pulse Ox O2 Delivery O2 Flow Rate FiO2 08/03/21 13:13 97.6 98 20 136/74 (94) 99 Room Air Laboratory Data 24H Labs Laboratory Tests 2 08/03/21 15:10: Nucleated Red Blood Cells % (auto) 0.0, Anion Gap 6L, Glomerular Filtration Rate > 60.0, Calcium Level 9.2, Total Bilirubin 0.5, Direct Bilirubin 0.1, Aspartate Amino Transf (AST/SGOT) 13, Alanine Aminotransferase (ALT/SGPT) 22, Alkaline Phosphatase 70, Total Protein 7.7, Albumin 4.1, Albumin/Globulin Ratio 1.1L, Thyroid Stimulating Hormone (TSH) 1.190, Salicylates Level < 1.7L, Urine Opiates Screen NEGATIVE, Urine Methadone Screen NEGATIVE, Acetaminophen Level < 2.0L, Urine Barbiturates Screen NEGATIVE, Urine Phencyclidine Screen NEGATIVE, Urine Amphetamines Screen NEGATIVE, Urine Benzodiazepines Screen POSITIVEH, Urine Cocaine Metabolite Screen NEGATIVE, Urine Cannabinoids Screen NEGATIVE, Ethyl Alcohol Level < 0.003, Coronavirus (COVID-19)(PCR) NEGATIVE, Influenza Type A (RT-PCR) NEGATIVE, Influenza Type B (RT-PCR) NEGATIVE, Respiratory Syncytial Virus (PCR) NEGATIVE CBC/BMP Laboratory Tests 08/03/21 15:10 Current Medications Current Medications Medications (Trade) Dose Ordered Sig/Stevie Route PRN Reason Start Time Stop Time Status Last Admin Dose Admin Lorazepam (Ativan) 1 mg STAT STAT PO 08/03/21 14:25 08/03/21 14:26 DC 08/03/21 14:54 Allergies Coded Allergies: No Known Allergies (Unverified , 02/27/19) JUANJO CUNNINGHAM MD Aug 03, 2021 20:40
[2021-08-03] MEDS ORDERED: LORazepam 2 MG TAB PO ONE (22:35)
[2021-08-03] MEDS ORDERED: ESCITALOPRAM OXALATE 10 MG TAB (LEXAPRO) PO ONE (22:40)
[2021-08-04] MEDS ORDERED: LORazepam 2 MG/ML VIAL IV STA (06:25)
[2021-08-04] MEDS ORDERED: LORazepam 2 MG TAB PO STA (07:19)
[2021-08-04] MEDS ORDERED: NICOTINE 7 MG/24 HR TRANSDERMAL TD ONE (07:40)
[2021-08-04] MEDS ORDERED: LORazepam 1 MG TAB PO STA (07:45)
[2021-08-04 10:58] LABS: RSV AMPLIFICATION NEGATIVE (NEGATIVE)
[2021-08-04] MEDS ORDERED: MOM 30ML SUSPENSION UDC PO PRN (15:35)
[2021-08-04] MEDS ORDERED: traZODone 50 MG TAB PO PRN (15:35)
--- OUTSIDE RECORDS SUMMARY | 2021-08-04 16:07 | CCD ---
Author Author [facility] Organization [facility] Address Unknown Phone Unavailable Support Name Relationship Address Phone Eneida Sanchez DDS Next Of Kin [address] [place], [place] [phone] CHRISMiguel PLATA Next Of Kin [id number] [address] DISABLED Next Of Kin Unknown Unavailable UE Next Of Kin Unknown Unavailable UN Next Of Kin Unknown Unavailable HOMEMAKER Next Of Kin Unknown Unavailable Miguel RASMUSSEN Next Of Kin [address] [place] [address] TENA TR[place] [address] CHRISMIKKI PLATA ECON [address] [address] Unavailable IRMA RASMUSSEN ECON [address] [place] [phone] Re-disclosure Warning The records that you are [...] is protected by Article 27-F of the [facility] Public Health law. If you continue you may have access to information: Regarding HIV / AIDS; Provided by facilities licensed or operated by the [facility] Office of Mental Health; or Provided by the [facility] Office for People With Developmental Disabilities. If such information is present, then the following [facility] mandated warning applies: This information has [...] law may result in a fine or custodial sentence or both. A general authorization for the release of medical or other information is NOT sufficient authorization for further disc losure. Family History Family Member Name Family Member Gender Family Member Status Date o f Status Description Data Source(s) Unknown Unknown Problem MEDENT ([facility], ) Encounters Encounter Providers Location Date Indications Data Source(s ) (TV_Virtual) Virtual Enc Tel Health Visit [address] [place] [address] 07/28/2021 12:00:00 AM EDT eCW1 ([facility]) Unknown [address] [facility] [address] 07/27/2021 12:00:00 AM EDT eCW1 ([facility] Outpatient [address] [facility] [address] 07/23/2021 12:00:00 AM EDT eCW1 ([facility]) (TV_Virtual) Virtual Enc Tel Health Visit [address] [place] [address] 07/13/2021 12:00:00 AM EDT eCW1 ([facility]) Unknown [address] [facility] [address] 07/10/2021 12:00:00 AM EDT eCW1 ([facility]) Unknown [address] [facility] [address] 07/07/2021 12:00:00 AM EDT eCW1 ([facility]) (TV_Virtual) Virtual Enc [facility] Health Visit [address] [place] [address] 07/06/2021 12:00:00 AM EDT eCW1 ([facility]) [place] [address] [facility] [address] 07/02/2021 12:00:00 AM EDT eCW1 ([facility] [place] [address] [facility] [address] 07/01/2021 12:00:00 AM EDT eCW1 ([facility]) ([facility]) [facility] Health Scheduled Visit [address] [place] [address] 06/30/2021 12:00:00 AM EDT eCW1 ([facility]) [place] [address] [facility] [address] 06/24/2021 12:00:00 AM EDT eCW1 ([facility]) [place] [address] [facility] [address] 06/18/2021 12:00:00 AM EDT eCW1 ([facility]) [place] [address] [facility] [address] 06/16/2021 12:00:00 AM EDT eCW1 ([facility]) [place] [address] [facility] [address] 06/15/2021 12:00:00 AM EDT eCW1 ([facility]) [place] [address] [facility] [address] 05/21/2021 12:00:00 AM EDT eCW1 ([facility]) [place] [address] [facility] [address] 04/23/2021 12:00:00 AM EDT eCW1 ([facility]) [place] [address] [facility] [address] 02/23/2021 12:00:00 AM EDT eCW1 ([facility]) [place] [address] [facility] [address] 02/19/2021 12:00:00 AM EDT eCW1 ([facility]) [place] [address] [facility] [address] 02/12/2021 12:00:00 AM EDT eCW1 ([facility]) [place] [address] [facility] [address] 01/26/2021 12:00:00 AM EDT eCW1 ([facility]) [place] [address] [facility] [address] 12/25/2020 12:00:00 AM EST eCW1 ([facility]) [place] [address] [facility] [address] 11/27/2020 12:00:00 AM EST eCW1 ([facility]) [place] [address] [facility] [address] 11/25/2020 12:00:00 AM EST eCW1 ([facility]) [place] [address] [facility] [address] 10/29/2020 12:00:00 AM EST eCW1 ([facility]) [place] [address] [facility] [address] 10/02/2020 12:00:00 AM EST eCW1 ([facility]) [place] [address] [facility] [address] 09/05/2020 12:00:00 AM EST eCW1 ([facility]) [place] [address] [facility] [address] 09/03/2020 12:00:00 AM EST eCW1 ([facility]) [place] [address] [facility] [address] 09/02/2020 12:00:00 AM EST eCW1 ([facility]) [place] [address] [facility] [address] 08/07/2020 12:00:00 AM EDT eCW1 ([facility]) [place] [address] [facility] [address] 07/30/2020 12:00:00 AM EDT eCW1 ([facility]) Unknown [address] [facility], [facility] [address] 07/15/2020 12:00:00 AM EDT eCW1 ([facility]) Medications Medication Brand Name Start Date Product Form Dose Route Admi nistrative Instructions Pharmacy Instructions Status Indications Reaction Description Data Source(s) Alprazolam 0.5 MG Oral Tablet [Xanax] Xanax 0.5 MG Xanax 0.5 MG 07/23/2021 12:00:00 AM EDT 1.0 {tablet_as_needed} active Xanax 0.5 MG eCW1 ([facility]) Alprazolam 0.5 MG Oral Tablet [Xanax] Xanax 0.5 MG Xanax 0.5 MG 07/23/2021 12:00:00 AM EDT 1.0 {tablet_as_needed} active Xanax 0.5 MG eCW1 ([facility]) Alprazolam 0.5 MG Oral Tablet [Xanax] Xanax 0.5 MG Xanax 0.5 MG 07/23/2021 12:00:00 AM EDT 1.0 {tablet_as_needed} active Xanax 0.5 MG eCW1 ([facility]) Alprazolam 0.5 MG Oral Tablet [Xanax] Xanax 0.5 MG Xanax 0.5 MG 07/09/2021 12:00:00 AM EDT 1.0 {tablet_as_needed} active Xanax 0.5 MG eCW1 ([facility]) Alprazolam 0.5 MG Oral Tablet [Xanax] Xanax 0.5 MG Xanax 0.5 MG 07/09/2021 12:00:00 AM EDT 1.0 {tablet_as_needed} active Xanax 0.5 MG eCW1 ([facility]) Alprazolam 0.5 MG Oral Tablet [Xanax] Xanax 0.5 MG Xanax 0.5 MG 07/09/2021 12:00:00 AM EDT 1.0 {tablet_as_needed} active Xanax 0.5 MG eCW1 ([facility]) Alprazolam 0.5 MG Oral Tablet [Xanax] Xanax 0.5 MG Xanax 0.5 MG 07/09/2021 12:00:00 AM EDT 1.0 {tablet_as_needed} active Xanax 0.5 MG eCW1 ([facility]) Alprazolam 0.5 MG Oral Tablet [Xanax] Xanax 0.5 MG Xanax 0.5 MG 07/09/2021 12:00:00 AM EDT 1.0 {tablet_as_needed} active Xanax 0.5 MG eCW1 ([facility]) Alprazolam 0.5 MG Oral Tablet [Xanax] Xanax 0.5 MG Xanax 0.5 MG 07/09/2021 12:00:00 AM EDT 1.0 {tablet_as_needed} active Xanax 0.5 MG eCW1 ([facility]) Alprazolam 0.5 MG Oral Tablet [Xanax] Xanax 0.5 MG Xanax 0.5 MG 06/24/2021 12:00:00 AM EDT 1.0 {tablet_as_needed} active Xanax 0.5 MG eCW1 ([facility]) Alprazolam 0.5 MG Oral Tablet [Xanax] Xanax 0.5 MG Xanax 0.5 MG 06/24/2021 12:00:00 AM EDT 1.0 {tablet_as_needed} active Xanax 0.5 MG eCW1 ([facility]) Flonase Allergy Relief 50 MCG/ACT Flonase Allergy Relief 50 MCG/ACT 06/18/2021 12:00:00 AM EDT 1.0 {spray_in_each_nostril} acti ve Flonase Allergy Relief 50 MCG/ACT eCW1 ([facility]) Flonase Allergy Relief 50 MCG/ACT Flonase Allergy Relief 50 MCG/ACT 06/18/2021 12:00:00 AM EDT 1.0 {spray_in_each_nostril} susp ended Flonase Allergy Relief 50 MCG/ACT eCW1 ([facility]) Flonase Allergy Relief 50 MCG/ACT Flonase Allergy Relief 50 MCG/ACT 06/18/2021 12:00:00 AM EDT 1.0 {spray_in_each_nostril} susp ended Flonase Allergy Relief 50 MCG/ACT eCW1 ([facility]) Flonase Allergy Relief 50 MCG/ACT Flonase Allergy Relief 50 MCG/ACT 06/18/2021 12:00:00 AM EDT 1.0 {spray_in_each_nostril} susp ended Flonase Allergy Relief 50 MCG/ACT eCW1 ([facility]) Flonase Allergy Relief 50 MCG/ACT Flonase Allergy Relief 50 MCG/ACT 06/18/2021 12:00:00 AM EDT 1.0 {spray_in_each_nostril} acti ve Flonase Allergy Relief 50 MCG/ACT eCW1 ([facility]) Flonase Allergy Relief 50 MCG/ACT Flonase Allergy Relief 50 MCG/ACT 06/18/2021 12:00:00 AM EDT 1.0 {spray_in_each_nostril} susp ended Flonase Allergy Relief 50 MCG/ACT eCW1 ([facility]) Flonase Allergy Relief 50 MCG/ACT Flonase Allergy Relief 50 MCG/ACT 06/18/2021 12:00:00 AM EDT 1.0 {spray_in_each_nostril} susp ended Flonase Allergy Relief 50 MCG/ACT eCW1 ([facility]) Flonase Allergy Relief 50 MCG/ACT Flonase Allergy Relief 50 MCG/ACT 06/18/2021 12:00:00 AM EDT 1.0 {spray_in_each_nostril} susp ended Flonase Allergy Relief 50 MCG/ACT eCW1 ([facility]) Flonase Allergy Relief 50 MCG/ACT Flonase Allergy Relief 50 MCG/ACT 06/18/2021 12:00:00 AM EDT 1.0 {spray_in_each_nostril} susp ended Flonase Allergy Relief 50 MCG/ACT eCW1 ([facility]) Flonase Allergy Relief 50 MCG/ACT Flonase Allergy Relief 50 MCG/ACT 06/18/2021 12:00:00 AM EDT 1.0 {spray_in_each_nostril} susp ended Flonase Allergy Relief 50 MCG/ACT eCW1 ([facility]) Flonase Allergy Relief 50 MCG/ACT Flonase Allergy Relief 50 MCG/ACT 06/18/2021 12:00:00 AM EDT 1.0 {spray_in_each_nostril} susp ended Flonase Allergy Relief 50 MCG/ACT eCW1 ([facility]) Flonase Allergy Relief 50 MCG/ACT Flonase Allergy Relief 50 MCG/ACT 06/18/2021 12:00:00 AM EDT 1.0 {spray_in_each_nostril} susp ended Flonase Allergy Relief 50 MCG/ACT eCW1 ([facility]) Flonase Allergy Relief 50 MCG/ACT Flonase Allergy Relief 50 MCG/ACT 06/18/2021 12:00:00 AM EDT 1.0 {spray_in_each_nostril} susp ended Flonase Allergy Relief 50 MCG/ACT eCW1 ([facility]) Alprazolam 0.5 MG Oral Tablet [Xanax] Xanax 0.5 MG Xanax 0.5 MG 06/16/2021 12:00:00 AM EDT 1.0 {tablet_as_needed} active Xanax 0.5 MG eCW1 ([facility]) Alprazolam 0.5 MG Oral Tablet [Xanax] Xanax 0.5 MG Xanax 0.5 MG 06/16/2021 12:00:00 AM EDT 1.0 {tablet_as_needed} active Xanax 0.5 MG eCW1 ([facility]) Alprazolam 0.5 MG Oral Tablet [Xanax] Xanax 0.5 MG Xanax 0.5 MG 06/16/2021 12:00:00 AM EDT 1.0 {tablet_as_needed} active Xanax 0.5 MG eCW1 ([facility]) Alprazolam 0.5 MG Oral Tablet [Xanax] Xanax 0.5 MG Xanax 0.5 MG 05/22/2021 12:00:00 AM EDT 1.0 {tablet_as_needed} active Xanax 0.5 MG eCW1 ([facility]) Insurance Providers Payer name Policy type / Coverage type Policy ID Covered constitution party ID Covered constitution party's relationship to donald Policy Donald Plan Information MEDICARE [id number] SP [id number] A CIG [id number] SP [id number] CIGNA [id number] [facility] [id number] Medicare [place] Medicare Primary [id number] Self 1 [id number] Medicare [place] Medicare Primary [id number] Self 1 [id number] Medicare [place] Medicare Primary [id number] Self 1 [id number] MEDICARE [id number] SP [id number] A Medicare [place] Medicare Primary [id number] Self Medicare [place] Medicare Primary [id number] Self 1 [id number] Managed Care - [facility] P [id number] S [id number] MEDICARE COMPLETE [id number] SP [id number] [facility] P [id number] S [id number] Medicare S [id number] S [id number] A National Government Serv Medicare Primary -A [id number] Self [id number] [facility] Faculte Maintenance Organization (O) [id number] Self [id number] [facility] Health Maintenance Organization (HMO) [id number] Self [id number] National Government Serv Medicare Primary -A [id number] Self - ANS-Medicare Part B [id number] [facility] [id number] SP [id number] [facility] Medicare Commercial [id number] Self [id number] [facility] MEDICARE [id number] SP [id number] [facility] [id number] SP [id number] PGBA [facility] [id number] 2 [id number] [facility] Medicare Commercial [id number] Self [id number] FOR LIFE [id number] SP C [id number] FOR LIFE UNAVAILABLE U NAVAILABLE SELF PAY UNAVAILABLE UNAVAILA BLE MEDICAID [facility] [id number] SP [id number] CIGNA [id number] SPO [id number] CIGNA UNAVAILABLE UNAVAILA BLE MEDICARE COMPLETE [id number] SP [id number] MEDICARE COMPLETE [id number] SP [id number] MEDICARE COMPLETE [id number] SP [id number] MEDICARE COMPLETE[facility] O [id number] S [id number] ANSI-Medicare Part B [id number] ANSI-Medicare Part B [id number] ANSI-Medicare Part B [id number] ANSI-Medicare Part B [id number] ANSI-Medicare Part B [id number] ANSI-Medicare Part B [id number] Medicare Complete Commercial [id number] Self [id number] [employer] Medicare Commercial [id number] Self [id number] ANSI-Medicare Part B [id number] ANSI-Medicare Part B [id number] ANSI-Medicare Part B [id number] Managed Care - [facility] [id number] S [id number] ANSI-Medicare Part B [id number] Problems, Conditions, and Diagnoses Code Display Name Description Problem Type Effective Dates Data Source(s) Q07.00 [id number] Arnold-Chiari malformation Problem 12:00:00 AM EDT eCW1 ([facility]) F41.9 [id number] Severe anxiety Problem 06/24/2021 12:00:00 A M EDT eCW1 ([facility]) J30.89 Allergic rhinitis Non-seasonal allergic rhinitis , unspecified trigger Problem 02/12/2021 12:00:00 AM EDT eCW1 ([facility]) Surgeries/Procedures No Information Results ID Date Data Source [id number] 06/14/2021 09:24:00 AM EDT [facility] Name Value Range Interpretation Code Description Data Elizabeth rce(s) Supporting Document(s) SARS COVID ANTIGEN POSITIVE [facility] This lab was ordered by [facility] nd reported by [facility]. ID Date Data Source VITB12 & FOL 02/13/2021 12:00:00 AM EDT eCW1 ([facility]) Name Value Range Interpretation Code Description Data Elizabeth rce(s) Supporting Document(s) 10.6 FOLATE eCW1 ([facility]) 254 VITAMIN B12 LEVEL eCW1 ([facility]) ID Date Data Source VITAMIN D 25-HYDROXY 02/13/2021 12:00:00 AM EDT eCW1 ([facility]) Name Value Range Interpretation Code Description Data Elizabeth rce(s) Supporting Document(s) 22.6 30.0-100.0 TOTAL 25(OH) VITAMIN D eC W1 ([facility]) ID Date Data Source CBC with Differential 02/13/2021 12:00:00 AM EDT eCW1 ([facility]) Name Value Range Interpretation Code Description Data Elizabeth rce(s) Supporting Document(s) 6.3 4.0-10.0 WHITE BLOOD COUNT eCW1 ([facility]) 4.26 4.00-5.40 RED BLOOD COUNT eCW1 ([facility]) 13.1 12.0-15.5 HEMOGLOBIN eCW1 ([facility]) 40.6 36.0-47.0 HEMATOCRIT eCW1 ([facility]) 95.3 80.0-96.0 MEAN CORPUSCULAR VOLUME e CW1 ([facility]) 12.4 11.5-14.5 RED CELL DISTRIBUTION WID TH eCW1 ([facility]) 30.8 27.0-33.0 MEAN CORPUSCULAR HEMOGLOB IN eCW1 ([facility]) 32.3 32.0-36.5 MEAN CORPUSCULAR HGB CONC eCW1 ([facility]) 271 150-450 PLATELET COUNT, AUTOMATED eCW1 ([facility]) 60.8 36.0-66.0 NEUTROPHILS % eCW1 ([facility]) 29.3 24.0-44.0 LYMPH % eCW1 ([facility]) 8.3 2.0-8.0 MONO % eCW1 ([facility]) 0.6 0.0-3.0 EOS % eCW1 ([facility]) 0.8 0.0-1.0 BASO % eCW1 ([facility]) 1.8 1.5-5.0 LYMPH # eCW1 ([facility]) 0.5 0.0-0.8 MONO # eCW1 ([facility]) 3.8 1.5-8.5 NEUTROPHILS # eCW1 ([facility]) 0.1 0.0-0.2 BASO # eCW1 ([facility]) 0.0 0.0-0.5 EOS # eCW1 ([facility]) Procedure Social History Code Duration Value Status Description Data Source(s ) Smoking 07/23/2021 12:00:00 AM EDT Never Smoker completed Never S moker eCW1 ([facility]) Smoking 07/23/2021 12:00:00 AM EDT Never Smoker completed Never S moker eCW1 ([facility]) Smoking 07/23/2021 12:00:00 AM EDT Never Smoker completed Never S moker eCW1 ([facility]) Smoking 07/01/2021 12:00:00 AM EDT Never Smoker completed Never S moker eCW1 ([facility]) Smoking 07/01/2021 12:00:00 AM EDT Never Smoker completed Never S moker eCW1 ([facility]) Smoking 07/01/2021 12:00:00 AM EDT Never Smoker completed Never S moker eCW1 ([facility]) Smoking 07/01/2021 12:00:00 AM EDT Never Smoker completed Never S moker eCW1 ([facility]) Smoking 07/01/2021 12:00:00 AM EDT Never Smoker completed Never S moker eCW1 ([facility]) Smoking 07/01/2021 12:00:00 AM EDT Never Smoker completed Never S moker eCW1 ([facility]) Smoking 07/01/2021 12:00:00 AM EDT Never Smoker completed Never S moker eCW1 ([facility]) Smoking 07/01/2021 12:00:00 AM EDT Never Smoker completed Never S moker eCW1 ([facility]) Smoking 06/18/2021 12:00:00 AM EDT Never Smoker completed Never S moker eCW1 ([facility]) Smoking 06/18/2021 12:00:00 AM EDT Never Smoker completed Never S moker eCW1 ([facility]) Smoking 02/12/2021 12:00:00 AM EDT Never Smoker completed Never S moker eCW1 ([facility]) Smoking 02/12/2021 12:00:00 AM EDT Never Smoker completed Never S moker eCW1 ([facility]) Smoking 02/12/2021 12:00:00 AM EDT Never Smoker completed Never S moker eCW1 ([facility]) Smoking 02/12/2021 12:00:00 AM EDT Never Smoker completed Never S moker eCW1 ([facility]) Smoking 02/12/2021 12:00:00 AM EDT Never Smoker completed Never S moker eCW1 ([facility]) Smoking 02/12/2021 12:00:00 AM EDT Never Smoker completed Never S moker eCW1 ([facility]) Smoking 09/02/2020 12:00:00 AM EST Never Smoker completed Never S moker eCW1 ([facility]) Smoking 09/02/2020 12:00:00 AM EST Never Smoker completed Never S moker eCW1 ([facility]) Smoking 09/02/2020 12:00:00 AM EST Never Smoker completed Never S moker eCW1 ([facility]) Smoking 09/02/2020 12:00:00 AM EST Never Smoker completed Never S moker eCW1 ([facility]) Smoking 09/02/2020 12:00:00 AM EST Never Smoker completed Never S moker eCW1 ([facility]) Smoking 09/02/2020 12:00:00 AM EST Never Smoker completed Never S moker eCW1 ([facility]) Smoking 09/02/2020 12:00:00 AM EST Never Smoker completed Never S moker eCW1 ([facility]) Smoking 09/02/2020 12:00:00 AM EST Never Smoker completed Never S moker eCW1 ([facility]) Smoking 09/02/2020 12:00:00 AM EST Never Smoker completed Never S moker eCW1 ([facility]) Vital Signs ID Date Data Source UNK Name Value Range Interpretation Code Description Data Source(s) Body weight 183 [lb_av] 183 [lb_av] eCW1 ([facility]) Body weight 83.01 kg 83.01 kg eCW1 ([facility]) Body height 62 [in_i] 62 [in_i] eCW1 ([facility]) Body mass index (BMI) [Ratio] 33.47 kg/m2 33.47 kg/m2 eCW1 ([facility]) Heart rate 71 /min 71 /min eCW1 ([facility]) Respiratory rate 18 /min 18 /min eCW1 ([facility]) Body temperature 97.9 [degF] 97.9 [degF] eCW1 ( [facility]) Systolic blood pressure 102 mm[Hg] 102 mm[Hg] e CW1 ([facility]) Diastolic blood pressure 66 mm[Hg] 66 mm[Hg] eCW1 ([facility]) Body weight 186 [lb_av] 186 [lb_av] eCW1 ([facility]) Body weight 84.37 kg 84.37 kg eCW1 ([facility]) Body height 62 [in_i] 62 [in_i] eCW1 ([facility]) Body mass index (BMI) [Ratio] 34.02 kg/m2 34.02 kg/m2 eCW1 ([facility]) Heart rate 78 /min 78 /min eCW1 ([facility]) Respiratory rate 17 /min 17 /min eCW1 ([facility]) Body temperature 97.5 [degF] 97.5 [degF] eCW1 ( [facility]) Systolic blood pressure 95 mm[Hg] 95 mm[Hg] e CW1 ([facility]) Diastolic blood pressure 65 mm[Hg] 65 mm[Hg] eCW1 ([facility]) Body weight 186.2 [lb_av] 186.2 [lb_av] eCW1 ([facility]) Body weight 84.46 kg 84.46 kg eCW1 ([facility]) Body height 62 [in_i] 62 [in_i] eCW1 ([facility]) Body mass index (BMI) [Ratio] 34.05 kg/m2 34.05 kg/m2 eCW1 ([facility]) Heart rate 88 /min 88 /min eCW1 ([facility]) Respiratory rate 18 /min 18 /min eCW1 ([facility]) Body temperature 97.0 [degF] 97.0 [degF] eCW1 ( [facility]) Systolic blood pressure 107 mm[Hg] 107 mm[Hg] e CW1 ([facility]) Diastolic blood pressure 72 mm[Hg] 72 mm[Hg] eCW1 ([facility]) Body weight 187.4 [lb_av] 187.4 [lb_av] eCW1 ([facility]) Body weight 85 kg 85 kg eCW1 ([facility]) Body height 62 [in_i] 62 [in_i] eCW1 ([facility]) Body mass index (BMI) [Ratio] 34.27 kg/m2 34.27 kg/m2 eCW1 ([facility]) Heart rate 95 /min 95 /min eCW1 ([facility]) Respiratory rate 17 /min 17 /min eCW1 ([facility]) Body temperature 97.1 [degF] 97.1 [degF] eCW1 ( [facility]) Systolic blood pressure 119 mm[Hg] 119 mm[Hg] e CW1 ([facility]) Diastolic blood pressure 73 mm[Hg] 73 mm[Hg] eCW1 ([facility]) Body weight 188.2 [lb_av] 188.2 [lb_av] eCW1 ([facility]) Body height 62 [in_i] 62 [in_i] eCW1 ([facility]) Body mass index (BMI) [Ratio] 34.42 kg/m2 34.42 kg/m2 eCW1 ([facility]) Heart rate 48 /min 48 /min eCW1 ([facility]) Respiratory rate 17 /min 17 /min eCW1 ([facility]) Body temperature 97.1 [degF] 97.1 [degF] eCW1 ( [place] [facility] Systolic blood pressure 110 mm[Hg] 110 mm[Hg] e CW1 ([facility]) Diastolic blood pressure 57 mm[Hg] 57 mm[Hg] eCW1 ([facility]) Body weight 182 [lb_av] 182 [lb_av] eCW1 ([facility]) Body weight 82.55 kg 82.55 kg eCW1 ([facility]) Body height 62 [in_i] 62 [in_i] eCW1 ([facility]) Body mass index (BMI) [Ratio] 33.28 kg/m2 33.28 kg/m2 eCW1 ([facility]) Systolic blood pressure 120 mm[Hg] 120 mm[Hg] e CW1 ([facility]) Diastolic blood pressure 74 mm[Hg] 74 mm[Hg] eCW1 ([facility]) Patient Treatment Plan of Care Planned Activity Planned Date Details Description Data Source (s) Alprazolam 0.5 MG Oral Tablet [Xanax] 07/23/2021 12:00:00 AM EDT eCW1 ([facility]) Alprazolam 0.5 MG Oral Tablet [Xanax] 07/23/2021 12:00:00 AM EDT eCW1 ([facility]) Alprazolam 0.5 MG Oral Tablet [Xanax] 07/23/2021 12:00:00 AM EDT eCW1 ([facility]) Alprazolam 0.5 MG Oral Tablet [Xanax] 07/09/2021 12:00:00 AM EDT eCW1 ([facility]) Alprazolam 0.5 MG Oral Tablet [Xanax] 07/09/2021 12:00:00 AM EDT eCW1 ([facility]) Alprazolam 0.5 MG Oral Tablet [Xanax] 07/09/2021 12:00:00 AM EDT eCW1 ([facility]) Alprazolam 0.5 MG Oral Tablet [Xanax] 07/09/2021 12:00:00 AM EDT eCW1 ([facility]) Alprazolam 0.5 MG Oral Tablet [Xanax] 07/09/2021 12:00:00 AM EDT eCW1 ([facility]) Alprazolam 0.5 MG Oral Tablet [Xanax] 07/09/2021 12:00:00 AM EDT eCW1 ([facility]) Flonase Allergy Relief 50 MCG/ACT 06/18/2021 12:00:00 AM EDT eCW1 ([facility]) Flonase Allergy Relief 50 MCG/ACT 06/18/2021 12:00:00 AM EDT eCW1 ([facility]) Alprazolam 0.5 MG Oral Tablet [Xanax] 06/16/2021 12:00:00 AM EDT eCW1 ([facility]) Alprazolam 0.5 MG Oral Tablet [Xanax] 05/22/2021 12:00:00 AM EDT eCW1 ([facility])
[2021-08-04] MEDS: LORazepam 0.5 MG TAB PO PRN (16:28)
[2021-08-04 18:08] VITALS: BP 119/58
[2021-08-04] MEDS: ESCITALOPRAM OXALATE 10 MG TAB (LEXAPRO) PO SCH (18:24)
[2021-08-04] MEDS: MULTIVITAMINS/MINERALS THERAP 1 TAB PO SCH (18:24)
[2021-08-04] MEDS ORDERED: LORazepam 0.5 MG TAB PO ONE (20:30)
[2021-08-04] MEDS ORDERED: NICOTINE 14 MG/24 HR TRANSDERMAL TD PRN (21:40)
[2021-08-04] MEDS: ACETAMINOPHEN TAB 650MG DOSE (2X325MG) PO PRN (22:44)
[2021-08-05] MEDS: LORazepam 0.5 MG TAB PO PRN ×2 (04:57→12:43)
[2021-08-05 06:38] VITALS: BP 136/75
[2021-08-05] MEDS: MULTIVITAMINS/MINERALS THERAP 1 TAB PO SCH (08:43)
[2021-08-05] MEDS: ESCITALOPRAM OXALATE 10 MG TAB (LEXAPRO) PO SCH ×2 (08:43→09:00)
[2021-08-05] MEDS ORDERED: ESCITALOPRAM OXALATE 5MG TABLET (LEXAPRO) PO SCH (09:00)
--- NOTE | 2021-08-05 14:07 | HPEPDOC ---
General Date of Admission Aug 04, 2021 at 15:34 Date of Service: Aug 05, 2021 Chief Complaint The patient is a 45-year-old female admitted with a reason for visit of Generalized Anxiety Disorder. Source: Patient, RN/MD History of Present Illness 45-year-old female has been admitted to inpatient mental health unit for generalized anxiety disorder. She has been examined here today for medical history and physical. She complains of feeling very anxious and very emotional and crying during normal conversation. Denies any medical complaints at this time. Home Medications Scheduled B1/B2/B3/B5/B6/Iron/Meth/Choln (Geritol Tonic) 118 Ml Liquid, 1 DOSE PO DAILY, (Reported) Escitalopram Oxalate (Lexapro) 10 Mg Tablet, 10 MG PO DAILY, (Reported) Multivitamin (Multivitamins) 1 Each Tablet, 1 TAB PO DAILY, (Reported) Scheduled PRN Alprazolam (Xanax) 0.5 Mg Tablet, 0.5 MG PO BID PRN for ANXIETY, (Reported) Cetirizine HCl (All Day Allergy) 10 Mg Tablet, 10 MG PO DAILY PRN for ALLERGIES, (Reported) Lorazepam (Ativan) 0.5 Mg Tablet, 0.5 MG PO BID PRN for ANXIETY/AGITATION, (Reported) Allergies Coded Allergies: No Known Allergies (Unverified , 02/27/19) Past Medical History Medical History IBS SEVERE IRON DEFICIENCY 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 ANXIETY and panic disorder ALLERGIC RHINITIS RECURRENT SINUSITIS Surgical History 3 CHIARI SURGERYS [id number] BREAST REDUCTION 1999 GASTRIC BYPASS 2008.2009 2008 GALLBLADDER 2008 T&A 1996 BILATERAL SALPINGECTOMY 2018 Family History Significant Family History: Diabetes (Mother), Hypertension (Mother) Obesity in mother and sisters Mother has high cholesterol Social History * Smoker: Denies Alcohol: Denies Drugs: denies A-FIB/CHADSVASC A-FIB History Current/History of A-Fib/PAF?: No Review of Systems Constitutional: Denies: Chills, Fever, Night Sweats Eyes: Denies: Pain, Vision change ENT: Denies: Head Aches, Ear Pain, Dysphagia Skin: Denies: Rash, Lesions, Breakdown Pulmonary: Denies: Dyspnea, Cough Cardiovascular: Denies: Chest Pain, Palpitations, Orthopnea, Paroxysmal Noc. Dyspnea, Lt Headedness Gastrointestinal: Denies: Nausea, Vomiting, Abdominal Pain, Diarrhea Genitourinary: Denies: Dysuria, Frequency, Incontinence, Retention Physical Examination General Exam: Positive: Alert, Cooperative, No Acute Distress Eye Exam: Positive: PERRLA, Conjunctiva & lids normal, EOMI; Negative: Sclera icteric ENT Exam: Positive: Atraumatic, Mucous membr. moist/pink, Pharynx Normal Chest Exam: Positive: Clear to auscultation, Normal air movement Heart Exam: Positive: Rate Normal, Regular Rhythm, Normal S1, Normal S2; Negative: Murmurs, Rubs Abdomen Exam: Positive: Normal bowel sounds, Soft; Negative: Tenderness, Hepatospenomegaly Extremity Exam: Negative: Clubbing, Cyanosis, Edema Vital Signs Vital Signs Date Time Temp Pulse Resp B/P (MAP) Pulse Ox O2 Delivery O2 Flow Rate FiO2 08/05/21 06:38 97.2 73 18 136/75 (95) 96 Room Air Assessment/Plan 45-year-old female has been admitted to inpatient mental health unit for generalized anxiety disorder. She has been examined here today for medical history and physical. Generalized anxiety disorder As per psych Iron deficiency Will restart iron History of gastric bypass surgery and malabsorption syndrome after the Continue vitamin supplementations Plan / VTE VTE Prophylaxis Ordered?: No (Freely ambulatory) Ally Streeter MD Aug 05, 2021 12:46
[2021-08-05] MEDS: GABAPENTIN 100 MG CAP PO SCH ×2 (15:44→20:57)
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
[2021-08-05 17:51] VITALS: BP 103/52
[2021-08-05] MEDS: PRENATAL VITAMINS CHEWABLE TABLET PO SCH (20:56)
[2021-08-05] MEDS: ESCITALOPRAM OXALATE 5MG TABLET (LEXAPRO) PO SCH (20:57)
[2021-08-06] MEDS: LORazepam 0.5 MG TAB PO PRN ×3 (01:36→18:34)
[2021-08-06 06:12] VITALS: BP 103/56
[2021-08-06] MEDS ORDERED: NICOTINE 7 MG/24 HR TRANSDERMAL TD SCH (09:00)
[2021-08-06] MEDS: MULTIVITAMINS/MINERALS THERAP 1 TAB PO SCH (09:00)
[2021-08-06] MEDS: FLUTICASONE PROP 0.05% NASAL SPRAY 16 GM (FLONASE) NARES SCH (09:00)
[2021-08-06] MEDS: PRENATAL VITAMINS CHEWABLE TABLET PO SCH (09:16)
[2021-08-06] MEDS: GABAPENTIN 100 MG CAP PO SCH ×3 (09:16→20:20)
[2021-08-06] MEDS ORDERED: LORazepam 0.5 MG TAB PO PRN (13:55)
--- NOTE | 2021-08-06 14:30 | MHIPNPDOC ---
[facility] Progress Note Progress Note DATE OF SERVICE: 08/06/21 HISTORY: Patient is a 45 -year-old , female, who, as per ED notes: "Pt states that she was dx with panic d/o twenty years ago & thirteen years ago she was started on Lexapro. She states that she was feeling better so she decreased her Lexapro to 10mg without consulting a doctor. In May pt was dx with Covid & she states that she was very sick. She states that this triggered her anxiety & she was put back on Lexapro 10mg, but she thought that the doctor wrote the prescription for 20mg & she only wanted to take 10mg, so she cut the pills in half, therefore has only been taking 5mg. Pt states that she had been taking Xanax & it was recently changed to Ativan. Pt reports side effects from the meds, such as joint pain, chest & neck pain, sinus px's, & increased anxiety. Pt states "I'm broken. I wake up with anxiety & panic every day." Pt states "my brain doesn't stop" & she reports that she is scared to go to sleep because she is scared of the side effects & because she knows she will wake up with anxiety. Pt states "I don't see this ending. I can't do this alone." Pt extremely tearful during the interview & states multiple times that she needs help. Pt denies both SI & HI. She denies any hx of suicide attempts or self- harm. Pt denies both AH & VH. She does not appear to be psychotic. Pt c/o depressed mood, anxiety, poor concentration, decreased energy levels, poor sleep, & poor appetite. Pt states "my brain doesn't stop." Pt has a hx of panic d/o, agoraphobia, & anxiety with no admissions. She has OP tx at [facility], but stated that she just started tx there recently. Pt denies any alcohol or drug use. Her tox screen was positive for benzos, which she is prescribed." VITAL SIGNS: See below. NEW TEST RESULTS: None CURRENT MEDICATIONS: See below. RESPONSE TO MEDICATIONS: Reports that she feels depressed, is inquiring about an increase in Lexapro. Reviewed with patient that psychiatrist increased the dose yesterday from 10 mg to 15 mg yesterday. Educated patient on need for patient to be stabilized on current dose of antidepressant before an increase is required. She reports some side effects from gabapentin but states that this might be her own anxiety. She had reported feeling numbness and tingling in arms and legs but that has since disappeared. ILLNESS EDUCATION: Reviewed with patient sleep hygiene. She states that she has had poor sleep in does not get good rest. Reports that this has been ongoing for approximately 2 months since she was positive for Covid. MENTAL STATUS EXAMINATION: Patient is a 45 -year-old , female, Speech: Is spontaneous, normal rate, tone and volume, very tearful Language skills are intact Thought processes including: linear and goal oriented Thought content: reports depression and anxiety. Very tearful. Denies suicidal/homicidal ideation, planning or intent. Abstract reasoning, and computation: fair Description of associations: denies, none observed Description of abnormal or psychotic thoughts: denies, none observed. Judgment: fair Insight: fair Orientation: alert and oriented to person, place, time and situation Recent and remote memory: intact Attention span and concentration: good Language: expansive Fund of knowledge: average Mood: Depressed Mood Affect: Anxious DIAGNOSES: Generalized anxiety disorder Unspecified Depressive Disorder Insomnia ASSESSMENT: Patient found in her room. She reports continued depression and severe anxiety. States that she was trying to wean herself off medications including her Lexapro. She has a long history of being fearful of medications, medicine, medical procedures, medical procedures and being in the hospital. She had reported to me that she had brainstem surgery x3 and this is when her anxiety started. She became ruminating about dying about this time. She is very fearful of this. States that her anxiety was very severe when she got Covid in May. She has not been sleeping well reports not getting good rest. And it appears that insomnia may be contributing to her anxiety and depression. MANAGEMENT PLAN: Encouraged the patient to take trazodone 50 mg at bedtime, also added Ativan 0.5 mg as needed for insomnia with a 2-hour window after the trazodone. Continue all medications and supportive therapy patient will be discharged next week. TIME SPENT: 40 minutes. Vital Signs Vital Signs Date Time Temp Pulse Resp B/P (MAP) Pulse Ox O2 Delivery O2 Flow Rate FiO2 08/06/21 06:12 98.2 68 18 103/56 (72) 97 Room Air Current Medications Current Medications Medications (Trade) Dose Ordered Sig/Stevie Route PRN Reason Start Time Stop Time Status Last Admin Dose Admin Acetaminophen (Tylenol Tab) 650 mg Q6HP PRN PO HEADACHE or MILD DISCOMFORT 08/04/21 15:35 08/04/21 22:44 Al Hydrox/Mg Hydrox/Simethicone (Mylanta) 30 ml Q4HP PRN PO HEARTBURN/INDIGESTION 08/04/21 15:35 Escitalopram Oxalate (Lexapro) 10 mg DAILY PO 08/04/21 09:00 08/05/21 14:44 DC 08/04/21 18:24 Escitalopram Oxalate (Lexapro) 15 mg DAILY PO 08/05/21 09:00 08/05/21 14:48 DC Escitalopram Oxalate (Lexapro) 15 mg QPM PO 08/05/21 14:48 08/05/21 20:57 Gabapentin (Neurontin) 100 mg TID PO 08/05/21 16:00 08/06/21 09:16 Home Med (Home Med List Complete!) ASDIRECTED XX 08/03/21 20:40 08/03/21 20:47 DC Lorazepam (Ativan) 0.5 mg Q8HP PRN PO ANXIETY/AGITATION 08/04/21 15:35 08/06/21 10:21 Lorazepam (Ativan) 1 mg STAT STAT IV 08/04/21 06:25 08/04/21 06:26 DC Lorazepam (Ativan) 1 mg STAT STAT PO 08/03/21 14:25 08/03/21 14:26 DC 08/03/21 14:54 Lorazepam (Ativan) 1 mg STAT STAT PO 08/04/21 07:45 08/04/21 07:46 DC 08/04/21 07:52 Lorazepam (Ativan) 2 mg STAT STAT PO 08/04/21 07:19 08/04/21 07:45 DC 08/04/21 07:39 Magnesium Hydroxide (Milk Of Magnesia) 30 ml DAILYPRN PRN PO CONSTIPATION 08/04/21 15:35 Multivitamins (Theragram-M) 1 tab DAILY PO 08/04/21 09:00 08/05/21 08:43 Nicotine (Nicoderm Cq 14mg) 1 patch DAILYPRN PRN TD NICOTINE WITHDRAWAL 08/04/21 21:40 08/06/21 09:15 DC 08/05/21 06:23 Nicotine (Nicoderm Cq 7 Mg) 1 patch DAILY TD 08/06/21 09:00 08/06/21 09:28 Prenat Multivit/ Fermenting Cellar Dropper/Iron/Folic Ac ( Vitamins) 1 tab DAILY PO 08/05/21 09:00 08/06/21 09:16 Trazodone HCl (Desyrel) 50 mg QHSP PRN PO INSOMNIA 08/04/21 15:35 Allergies Coded Allergies: No Known Allergies (Unverified , 02/27/19) BRITNI CHUNG NP Aug 06, 2021 14:16
[2021-08-06] MEDS: ACETAMINOPHEN TAB 650MG DOSE (2X325MG) PO PRN (17:32)
[2021-08-06 18:01] VITALS: BP 122/59
[2021-08-06] MEDS: NICOTINE POLACRILEX 2 MG GUM PO PRN (18:34)
[2021-08-06] MEDS: ESCITALOPRAM OXALATE 5MG TABLET (LEXAPRO) PO SCH (20:20)
[2021-08-07 06:41] VITALS: BP 138/67
[2021-08-07] MEDS: NICOTINE POLACRILEX 2 MG GUM PO PRN ×3 (07:22→22:03)
[2021-08-07] MEDS: FLUTICASONE PROP 0.05% NASAL SPRAY 16 GM (FLONASE) NARES SCH (08:14)
[2021-08-07] MEDS: GABAPENTIN 100 MG CAP PO SCH ×3 (08:15→21:07)
[2021-08-07] MEDS: MULTIVITAMINS/MINERALS THERAP 1 TAB PO SCH (08:15)
[2021-08-07] MEDS: PRENATAL VITAMINS CHEWABLE TABLET PO SCH (08:15)
[2021-08-07] MEDS: LORazepam 0.5 MG TAB PO PRN ×2 (08:16→17:07)
--- NOTE | 2021-08-07 16:07 | MHIPNPDOC ---
[facility] Progress Note Progress Note DATE OF SERVICE: 08/07/21 HISTORY: Patient is a 45 -year-old , female, who, as per ED notes: "Pt states that she was dx with panic d/o twenty years ago & thirteen years ago she was started on Lexapro. She states that she was feeling better so she decreased her Lexapro to 10mg without consulting a doctor. In May pt was dx with Covid & she states that she was very sick. She states that this triggered her anxiety & she was put back on Lexapro 10mg, but she thought that the doctor wrote the prescription for 20mg & she only wanted to take 10mg, so she cut the pills in half, therefore has only been taking 5mg. Pt states that she had been taking Xanax & it was recently changed to Ativan. Pt reports side effects from the meds, such as joint pain, chest & neck pain, sinus px's, & increased anxiety. Pt states "I'm broken. I wake up with anxiety & panic every day." Pt states "my brain doesn't stop" & she reports that she is scared to go to sleep because she is scared of the side effects & because she knows she will wake up with anxiety. Pt states "I don't see this ending. I can't do this alone." Pt extremely tearful during the interview & states multiple times that she needs help. Pt denies both SI & HI. She denies any hx of suicide attempts or self- harm. Pt denies both AH & VH. She does not appear to be psychotic. Pt c/o depressed mood, anxiety, poor concentration, decreased energy levels, poor sleep, & poor appetite. Pt states "my brain doesn't stop." Pt has a hx of panic d/o, agoraphobia, & anxiety with no admissions. She has OP tx at [facility], but stated that she just started tx there recently. Pt denies any alcohol or drug use. Her tox screen was positive for benzos, which she is prescribed." VITAL SIGNS: See below. NEW TEST RESULTS: None CURRENT MEDICATIONS: See below. RESPONSE TO MEDICATIONS: Reports that trazodone made her dizzy. Ativan 0.5 mg at bedtime helped her fall asleep. Feels the Lexapro is doing its job but is requesting an increase ILLNESS EDUCATION: Reviewed with patient sleep hygiene. She states that she has had poor sleep in does not get good rest. Reports that this has been ongoing for approximately 2 months since she was positive for Covid. MENTAL STATUS EXAMINATION: Patient is a 45 -year-old , female, Speech: Is spontaneous, normal rate, tone and volume, mildly tearful Language skills are intact Thought processes including: linear and goal oriented Thought content: reports depression and anxiety. Very tearful. Denies suicidal/homicidal ideation, planning or intent. Abstract reasoning, and computation: fair Description of associations: denies, none observed Description of abnormal or psychotic thoughts: denies, none observed. Judgment: fair Insight: fair Orientation: alert and oriented to person, place, time and situation Recent and remote memory: intact Attention span and concentration: good Language: expansive Fund of knowledge: average Mood: Depressed Mood Affect: Anxious DIAGNOSES: Generalized anxiety disorder Unspecified Depressive Disorder Insomnia ASSESSMENT: Patient found in her room. She reports continued depression and severe anxiety. Patient reports improved sleep last night states that trazodone made her dizzy. She reports her depression 5 out of 10, anxiety is 5 out of 10. She states that gabapentin is keeping her anxiety down a little bit but still has spikes of anxiety throughout the day. Stated that around the time of her menses she notices that she does have depression that is not sadness but feels that is full blown depression. She was mildly tearful in the interview. But her mood and affect did appear to have improved mildly MANAGEMENT PLAN: Increase Lexapro to 20 mg starting tomorrow night. TIME SPENT: 40 minutes. Vital Signs Vital Signs Date Time Temp Pulse Resp B/P (MAP) Pulse Ox O2 Delivery O2 Flow Rate FiO2 08/07/21 06:41 97.9 77 16 138/67 (90) 97 Room Air Current Medications Current Medications Medications (Trade) Dose Ordered Sig/Stevie Route PRN Reason Start Time Stop Time Status Last Admin Dose Admin Acetaminophen (Tylenol Tab) 650 mg Q6HP PRN PO HEADACHE or MILD DISCOMFORT 08/04/21 15:35 08/06/21 17:32 Al Hydrox/Mg Hydrox/Simethicone (Mylanta) 30 ml Q4HP PRN PO HEARTBURN/INDIGESTION 08/04/21 15:35 Escitalopram Oxalate (Lexapro) 10 mg DAILY PO 08/04/21 09:00 08/05/21 14:44 DC 08/04/21 18:24 Escitalopram Oxalate (Lexapro) 15 mg DAILY PO 08/05/21 09:00 08/05/21 14:48 DC Escitalopram Oxalate (Lexapro) 15 mg QPM PO 08/05/21 14:48 08/07/21 22:00 08/06/21 20:20 Escitalopram Oxalate (Lexapro) 20 mg QHS PO 08/08/21 21:00 Fluticasone Propionate (Flonase 0.05% Nasal [place]) 2 spray DAILY NARES 08/06/21 09:00 Gabapentin (Neurontin) 100 mg TID PO 08/05/21 16:00 08/07/21 08:15 Home Med (Home Med List Complete!) ASDIRECTED XX 08/03/21 20:40 08/03/21 20:47 DC Lorazepam (Ativan) 0.5 mg Q8HP PRN PO ANXIETY/AGITATION 08/04/21 15:35 08/07/21 08:16 Lorazepam (Ativan) 0.5 mg QHS PO 08/07/21 21:00 Lorazepam (Ativan) 0.5 mg QHSP PRN PO SEE LABEL COMMENTS 08/06/21 13:55 08/07/21 12:08 DC 08/06/21 22:20 Lorazepam (Ativan) 1 mg STAT STAT IV 08/04/21 06:25 08/04/21 06:26 DC Lorazepam (Ativan) 1 mg STAT STAT PO 08/03/21 14:25 08/03/21 14:26 DC 08/03/21 14:54 Lorazepam (Ativan) 1 mg STAT STAT PO 08/04/21 07:45 08/04/21 07:46 DC 08/04/21 07:52 Lorazepam (Ativan) 2 mg STAT STAT PO 08/04/21 07:19 08/04/21 07:45 DC 08/04/21 07:39 Magnesium Hydroxide (Milk Of Magnesia) 30 ml DAILYPRN PRN PO CONSTIPATION 08/04/21 15:35 Multivitamins (Theragram-M) 1 tab DAILY PO 08/04/21 09:00 08/07/21 08:15 Nicotine (Nicoderm Cq 14mg) 1 patch DAILYPRN PRN TD NICOTINE WITHDRAWAL 08/04/21 21:40 08/06/21 09:15 DC 08/05/21 06:23 Nicotine (Nicoderm Cq 7 Mg) 1 patch DAILY TD 08/06/21 09:00 08/06/21 15:07 DC 08/06/21 09:28 Nicotine (Nicorette) 2 mg Q4HP PRN PO NICOTINE WITHDRAWAL 08/06/21 15:10 08/07/21 07:22 Prenat Multivit/ [place]/Iron/Folic Ac ( Vitamins) 1 tab DAILY PO 08/05/21 09:00 08/07/21 08:15 Trazodone HCl (Desyrel) 50 mg QHSP PRN PO INSOMNIA 08/04/21 15:35 08/07/21 12:00 DC 08/06/21 20:20 Allergies Coded Allergies: No Known Allergies (Unverified , 02/27/19) BRITNI CHUNG NP Aug 07, 2021 12:53
[2021-08-07 19:03] VITALS: BP 108/70
[2021-08-07] MEDS: ESCITALOPRAM OXALATE 5MG TABLET (LEXAPRO) PO SCH (21:07)
[2021-08-07] MEDS: LORazepam 0.5 MG TAB PO SCH (21:08)
[2021-08-08 07:34] VITALS: BP 128/72
[2021-08-08] MEDS: NICOTINE 7 MG/24 HR TRANSDERMAL TD SCH (08:19)
[2021-08-08] MEDS: GABAPENTIN 100 MG CAP PO SCH ×3 (08:20→21:04)
[2021-08-08] MEDS: PRENATAL VITAMINS CHEWABLE TABLET PO SCH (08:20)
[2021-08-08] MEDS: MULTIVITAMINS/MINERALS THERAP 1 TAB PO SCH (08:20)
[2021-08-08] MEDS: FLUTICASONE PROP 0.05% NASAL SPRAY 16 GM (FLONASE) NARES SCH (08:20)
[2021-08-08] MEDS: LORazepam 0.5 MG TAB PO PRN (09:32)
--- NOTE | 2021-08-08 12:56 | MHIPNPDOC ---
[facility] Progress Note Progress Note DATE OF SERVICE: 08/08/21 HISTORY: Per Dr Loja progress note 08/07: Patient is a 45 -year-old , female, who, as per ED notes: "Pt states that she was dx with panic d/o twenty years ago & thirteen years ago she was started on Lexapro. She states that she was feeling better so she decreased her Lexapro to 10mg without consulting a doctor. In May pt was dx with Covid & she states that she was very sick. She states that this triggered her anxiety & she was put back on Lexapro 10mg, but she thought that the doctor wrote the prescription for 20mg & she only wanted to take 10mg, so she cut the pills in half, therefore has only been taking 5mg. Pt states that she had been taking Xanax & it was recently changed to Ativan. Pt reports side effects from the meds, such as joint pain, chest & neck pain, sinus px's, & increased anxiety. Pt states "I'm broken. I wake up with anxiety & panic every day." Pt states "my brain doesn't stop" & she reports that she is scared to go to sleep because she is scared of the side effects & because she knows she will wake up with anxiety. Pt states "I don't see this ending. I can't do this alone." Pt extremely tearful during the inte rview & states multiple times that she needs help. Pt denies both SI & HI. She denies any hx of suicide attempts or self-harm. Pt denies both AH & VH. She does not appear to be psychotic. Pt c/o depressed mood, anxiety, poor concentration, decreased energy levels, poor sleep, & poor appetite. Pt states "my brain doesn't stop." Pt has a hx of panic d/o, agoraphobia, & anxiety with no admissions. She has OP tx at [facility], but stated that she just started tx there recently. Pt denies any alcohol or drug use. Her tox screen was positive for benzos, which she is prescribed." VITAL SIGNS: See below. NEW TEST RESULTS: none CURRENT MEDICATIONS: See below. MENTAL STATUS EXAMINATION: Patient is a 45-year old female, who is in no acute distress, sitting in chair, good hygiene, good eye contact, brown hair in ponytail Speech: Is normal rate, rhythm, volume, spontaneous Language skills are good Thought processes including: linear, logical, future oriented Thought content: denies suicidal ideations, intent or plan. Abstract reasoning, and computation: good Description of associations: good Description of abnormal or psychotic thoughts: denies Judgment: fair Insight: good Orientation: x4 Recent and remote memory: intact Attention span and concentration: good Language: belarusian Fund of knowledge: average Mood: "seems getting better" Affect: euthymic, was tearful discussing hospital admission, full DIAGNOSES: Generalized anxiety disorder Unspecified Depressive Disorder Insomnia ASSESSMENT: Reports some anxiety and depression, hopelessness, anxiety attacks, panic attacks, but states improved from previous days, no longer has high anxious since re-starting lexapro. Will start lexapro 20 mg po qhs tonight, compliant with medications. Denies side effects and denies acute physical symptoms, apart from chronic aches and pains in knees. MANAGEMENT PLAN: Continues medications TIME SPENT: 15 minutes. Vital Signs Vital Signs Date Time Temp Pulse Resp B/P (MAP) Pulse Ox O2 Delivery O2 Flow Rate FiO2 08/08/21 08:30 Room Air 08/08/21 07:34 98.0 61 14 128/72 (90) 96 Current Medications Current Medications Medications (Trade) Dose Ordered Sig/Stevie Route PRN Reason Start Time Stop Time Status Last Admin Dose Admin Acetaminophen (Tylenol Tab) 650 mg Q6HP PRN PO HEADACHE or MILD DISCOMFORT 08/04/21 15:35 08/06/21 17:32 Al Hydrox/Mg Hydrox/Simethicone (Mylanta) 30 ml Q4HP PRN PO HEARTBURN/INDIGESTION 08/04/21 15:35 Escitalopram Oxalate (Lexapro) 10 mg DAILY PO 08/04/21 09:00 08/05/21 14:44 DC 08/04/21 18:24 Escitalopram Oxalate (Lexapro) 15 mg DAILY PO 08/05/21 09:00 08/05/21 14:48 DC Escitalopram Oxalate (Lexapro) 15 mg QPM PO 08/05/21 14:48 08/07/21 22:00 DC 08/07/21 21:07 Escitalopram Oxalate (Lexapro) 20 mg QHS PO 08/08/21 21:00 Fluticasone Propionate (Flonase 0.05% Nasal [place]) 2 spray DAILY NARES 08/06/21 09:00 Gabapentin (Neurontin) 100 mg TID PO 08/05/21 16:00 08/08/21 08:20 Home Med (Home Med List Complete!) ASDIRECTED XX 08/03/21 20:40 08/03/21 20:47 DC Lorazepam (Ativan) 0.5 mg Q8HP PRN PO ANXIETY/AGITATION 08/04/21 15:35 08/08/21 09:32 Lorazepam (Ativan) 0.5 mg QHS PO 08/07/21 21:00 08/07/21 21:08 Lorazepam (Ativan) 0.5 mg QHSP PRN PO SEE LABEL COMMENTS 08/06/21 13:55 08/07/21 12:08 DC 08/06/21 22:20 Lorazepam (Ativan) 1 mg STAT STAT IV 08/04/21 06:25 08/04/21 06:26 DC Lorazepam (Ativan) 1 mg STAT STAT PO 08/03/21 14:25 08/03/21 14:26 DC 08/03/21 14:54 Lorazepam (Ativan) 1 mg STAT STAT PO 08/04/21 07:45 08/04/21 07:46 DC 08/04/21 07:52 Lorazepam (Ativan) 2 mg STAT STAT PO 08/04/21 07:19 08/04/21 07:45 DC 08/04/21 07:39 Magnesium Hydroxide (Milk Of Magnesia) 30 ml DAILYPRN PRN PO CONSTIPATION 08/04/21 15:35 Multivitamins (Theragram-M) 1 tab DAILY PO 08/04/21 09:00 08/08/21 08:20 Nicotine (Nicoderm Cq 14mg) 1 patch DAILYPRN PRN TD NICOTINE WITHDRAWAL 08/04/21 21:40 08/06/21 09:15 DC 08/05/21 06:23 Nicotine (Nicoderm Cq 7 Mg) 1 patch DAILY TD 08/06/21 09:00 08/06/21 15:07 DC 08/06/21 09:28 Nicotine (Nicoderm Cq 7 Mg) 1 patch DAILY TD 08/08/21 09:00 08/08/21 08:19 Nicotine (Nicorette) 2 mg Q4HP PRN PO NICOTINE WITHDRAWAL 08/06/21 15:10 08/08/21 08:02 DC 08/07/21 22:03 Prenat Multivit/ [place]/Iron/Folic Ac ( Vitamins) 1 tab DAILY PO 08/05/21 09:00 08/08/21 08:20 Trazodone HCl (Desyrel) 50 mg QHSP PRN PO INSOMNIA 08/04/21 15:35 08/07/21 12:00 DC 08/06/21 20:20 Allergies Coded Allergies: No Known Allergies (Unverified , 02/27/19) JUANJO CUNNINGHAM MD Aug 08, 2021 12:56
[2021-08-08 18:50] VITALS: BP 120/72
[2021-08-08] MEDS: ESCITALOPRAM OXALATE 10 MG TAB (LEXAPRO) PO SCH (21:04)
[2021-08-08] MEDS: LORazepam 0.5 MG TAB PO SCH (21:05)
[2021-08-09] MEDS: LORazepam 0.5 MG TAB PO PRN ×2 (00:05→08:37)
[2021-08-09 06:00] VITALS: BP 110/74
[2021-08-09] MEDS: FLUTICASONE PROP 0.05% NASAL SPRAY 16 GM (FLONASE) NARES SCH (08:00)
[2021-08-09] MEDS: PRENATAL VITAMINS CHEWABLE TABLET PO SCH (08:00)
[2021-08-09] MEDS: MULTIVITAMINS/MINERALS THERAP 1 TAB PO SCH (08:01)
[2021-08-09] MEDS: GABAPENTIN 100 MG CAP PO SCH ×3 (08:01→21:03)
[2021-08-09] MEDS: NICOTINE 7 MG/24 HR TRANSDERMAL TD SCH (08:02)
[2021-08-09] MEDS: MAALOX 30 ML SUSP *UDC PO PRN ×2 (11:56→18:41)
[2021-08-09] MEDS ORDERED: ONDANSETRON 4 MG ORAL DISINTEGRATING TAB PO ONE (12:00)
[2021-08-09 18:47] VITALS: BP 112/55
[2021-08-09] MEDS: ESCITALOPRAM OXALATE 10 MG TAB (LEXAPRO) PO SCH (21:04)
[2021-08-09] MEDS: LORazepam 0.5 MG TAB PO SCH (21:35)
[2021-08-10] MEDS: FLUTICASONE PROP 0.05% NASAL SPRAY 16 GM (FLONASE) NARES SCH (08:28)
[2021-08-10] MEDS: NICOTINE 7 MG/24 HR TRANSDERMAL TD SCH (08:30)
[2021-08-10] MEDS: MULTIVITAMINS/MINERALS THERAP 1 TAB PO SCH (08:31)
[2021-08-10] MEDS: PRENATAL VITAMINS CHEWABLE TABLET PO SCH (08:31)
[2021-08-10] MEDS: GABAPENTIN 100 MG CAP PO SCH (08:31)
[2021-08-10] MEDS ORDERED: GABA-1171 PO (09:37)
[2021-08-10] MEDS ORDERED: XANA0.5T PO (09:37)
[2021-08-10] MEDS ORDERED: PRENCHW PO (09:37)
[2021-08-10] MEDS ORDERED: NICO7PA TD (09:37)
[2021-08-10] MEDS ORDERED: LEXA1TAB2 PO (09:37)
[2021-08-10] MEDS ORDERED: MYLA1SUS PO (09:37)
[2021-08-10] MEDS ORDERED: ALPRAZolam 0.25 MG TAB PO ONE (10:00)
--- NOTE | 2021-08-10 16:12 | MHDSPDOC ---
[facility] Discharge Summary Discharge Summary DATE OF ADMISSION: Aug 04, 2021 at 15:34 DATE OF DISCHARGE: Aug 10, 2021 at 12:36 DISCHARGE DIAGNOSES: Unspecified Depressive Disorder Insomnia Generalized anxiety disorder REASON FOR ADMISSION: Patient is a 45 -year-old , female, who, as per ED notes: "Pt states that she was dx with panic d/o twenty years ago & thirteen years ago she was started on Lexapro. She states that she was feeling better so she decreased her Lexapro to 10mg without consulting a doctor. In May pt was dx with Covid & she states that she was very sick. She states that this triggered her anxiety & she was put back on Lexapro 10mg, but she thought that the doctor wrote the prescription for 20mg & she only wanted to take 10mg, so she cut the pills in half, therefore has only been taking 5mg. Pt states that she had been taking Xanax & it was recently changed to Ativan. Pt reports side effects from the meds, such as joint pain, chest & neck pain, sinus px's, & increased anxiety. Pt states "I'm broken. I wake up with anxiety & panic every day." Pt states "my brain doesn't stop" & she reports that she is scared to go to sleep because she is scared of the side effects & because she knows she will wake up with anxiety. Pt states "I don't see this ending. I can't do this alone." Pt extremely tearful during the interview & states multiple times that she needs help. Pt denies both SI & HI. She denies any hx of suicide attempts or self-harm. Pt denies both AH & VH. She does not appear to be psychotic. Pt c/o depressed mood, anxiety, poor concentration, decreased energy levels, poor sleep, & poor appetite. Pt states "my brain doesn't stop." Pt has a hx of p anic d/o, agoraphobia, & anxiety with no admissions. She has OP tx at [facility], but stated that she just started tx there recently. Pt denies any alcohol or drug use. Her tox screen was positive for benzos, which she is prescribed." VITAL SIGNS: See below. CONSULTANTS INVOLVED: See Medical H + P by Hospitalist TREATMENT AND PROGRESS ON THE UNIT: Patient was admitted to the [facility] on a 9.39 legal status was afforded the following treatment modalities: 1) Individual Therapy 2) Group Therapy 3) Medication Management 4) Milieu Therapy 5) Safe Environment HOSPITAL COURSE: Patient was admitted to [facility] on a legal status. Patient was resumed on her home medication, started on trazodone and Ativan. She reported that she did not like either of these medications but was in need of anxiolytics often on the unit due to her severe anxiety. She is quite isolative and withdrawn. Patient has a history of agoraphobia. She reports that her mood, anxiety, and intrusive thoughts improved enough that she can return home today. On day of discharge pt. denied depression, insomnia, SI/HI, hallucinations, and/or delusions. Pt was discharged home with follow-up with [facility], patient has appointment with Dr. Fregoso. Pt felt safe for discharge. DISCHARGE ASSESSMENT: In today's interview, patient is alert and oriented, pt.s dress is appropriate. Hygiene and grooming is well-kempt. Smiles on approach and is pleasant and engaged in the interview. Denies depression and anxiety that is severe. Denies suicidal and homicidal ideation, planning or intent. Denies and is not observed with fabby, psychotic symptoms of delusions, bizarre thinking, obsessions, paranoia, ruminations illogical thoughts, flight of ideas or having poor insight and judgement. Reinforced with patient need to abstain from alcohol and drugs. At discharge patient has normal mentation, declines further hospitalization. Discussed indications of medications, potential benefits and risks, alternatives (including no treatment) and questions were encouraged and answered. Patient encouraged to return to hospital if symptoms worsen or change and encouraged to call unit if he/she/they needs to speak to provider for questions regarding medications or care. MENTAL STATUS EXAMINATION ON DISCHARGE: Patient is a 45 -year-old , female, who, as per ED notes: "Pt states that she was dx with panic d/o twenty years ago & thirteen years ago she was started on Lexapro. She states that she was feeling better so she decreased her Lexapro to 10mg without consulting a doctor. Speech: Is fluid, conversant, normal rate, tone and volume Language skills are intact Thought processes including: linear and goal oriented Thought content: denies depression and anxiety. Denies suicidal/homicidal ideation, planning or intent. Abstract reasoning, and computation: fair Description of associations: denies, none observed Description of abnormal or psychotic thoughts: denies, none observed. Judgment: Good Insight: Good Orientation: alert and oriented to person, place, time and situation Recent and remote memory: intact Attention span and concentration: good Language: expansive Fund of knowledge: average Mood: Euthymic Mood Affect: Anxious Suicide Risk Assessment: 1) Does the patient wish to be ? No 2) Since your admission, have you had any actual thought of killing yourself? No 3) Since your admission, have you been thinking about how you might do this? No 4) Since your admission, have you had these thoughts and had some intention of acting on them? No 5) Since your admission, have you started to work out or worked out the details of how to kill yourself? No 5A) Do you intent to carry out this plan? No and NA 6) Have you ever done anything, started anything, or prepared to do anything with any intent to ? No 6A) How long since your admission did you do any of these? NA MEDICATIONS ON DISCHARGE: See Medication Reconciliation. Patient had reported she did not want Ativan, requested Xanax 0.5 mg 3 times daily to return to her regimen. Patient education regarding risk of addiction to Benzodiazepines given to patient, she has had this medication in the past. Verbalized understanding. PLAN/FOLLOWUP ARRANGEMENTS: Patient is being discharged to home, she is a client at [facility] and has an appointment with Dr. Fregoso tomorrow. The amount of time spent in the coordination of care for this patient was approximately 35-minutes. ETOH/Disorder Med Rx ETOH/DRUG DISORDER RX: N/A Vital Signs/I&Os Vital Signs Date Time Temp Pulse Resp B/P (MAP) Pulse Ox O2 Delivery O2 Flow Rate FiO2 08/10/21 14:21 Room Air 08/09/21 18:47 98.6 84 16 112/55 (74) 08/09/21 06:00 98 Medications Scheduled B1/B2/B3/B5/B6/Iron/Meth/Choln (Geritol Tonic) 118 Ml Liquid, 1 DOSE PO DAILY, (Reported) Escitalopram Oxalate (Lexapro) 20 Mg Tablet, 20 MG PO DAILY for Depression, #7 Gabapentin (Gabapentin) 100 Mg Capsule, 100 MG PO TID for Anxiety, #21 Multivitamin (Multivitamins) 1 Each Tablet, 1 TAB PO DAILY, (Reported) Nicotine (Nicotine Patch) 7 Mg Patch.td24, 1 PATCH TD DAILY for Nicotine withdrawal, #7 Pnv No.118/Iron Fumarate/FA ( 19 Chewable Tablet) 1 Each Tab.chew, 1 TAB PO DAILY for Vitamin, #7 Scheduled PRN Alprazolam (Xanax) 0.5 Mg Tablet, 0.5 MG PO TIDP PRN for ANXIETY, #21 Cetirizine HCl (All Day Allergy) 10 Mg Tablet, 10 MG PO DAILY PRN for ALLERGIES, (Reported) Mag Hydrox/Aluminum Hyd/Simeth (Mylanta Maximum Strength Liq) 355 Ml Oral.susp, 355 ML PO DAILYPRN PRN for Heartburn, #1 Allergies Coded Allergies: No Known Allergies (Unverified , 02/27/19) BRITNI CHUNG NP Aug 10, 2021 16:12
== END 2021-08-10 12:36 | disposition home or self-care (01) | DRG 880 ==
LOC: M ED 13:12 → M ED INP 08-04 15:34 → M PSY 08-04 18:03
PROVIDERS: ADMIT Psychiatry & Neurology Psychiatry; ATTEND Psychiatry & Neurology Psychiatry
DX: F41.1 Generalized anxiety disorder (principal); F32.9 Major depressive disorder, single episode, unspecified; E61.1 Iron deficiency; Z98.84 Bariatric surgery status; Z62.810 Personal history of physical and sexual abuse in childhood; Z62.811 Personal history of psychological abuse in childhood; F17.290 Nicotine dependence, other tobacco product, uncomplicated; Z86.16 Personal history of COVID-19; Z79.899 Other long term (current) drug therapy; G47.00 Insomnia, unspecified; T43.226A Underdosing of selective serotonin reuptake inhibitors, initial encounter; Z91.138 Patient's unintentional underdosing of medication regimen for other reason

== ENCOUNTER → 2022-08-18 | Outpatient (CLI) | payer MEDICARE ==
[~2022-08-18] MED LIST changes: +GABA-1171 PO; +LEXA1TAB PO; -MONT10TA10; -MONT10TA10 PO; +MONT10TA97; +MONT10TA97 PO; +MULTTAB61 PO; +MYLA1SUS PO; +NICO7PA TD; +PRENCHW PO
[2022-08-18 12:51] LABS: BASO % 0.6 % (0.0-1.0); EOS % 0.5 % (0.0-3.0); HEMATOCRIT 42.1 % (36.0-47.0); HEMOGLOBIN 13.4 g/dl (12.0-15.5); LYMPH # 1.8 10^3/uL (1.5-5.0); LYMPH % 29.4 % (24.0-44.0); MEAN CORPUSCULAR HEMOGLOBIN 30.6 pg (27.0-33.0); MEAN CORPUSCULAR HGB CONC 31.8 g/dl (32.0-36.5); MEAN CORPUSCULAR VOLUME 96.1 fl (80.0-96.0); MONO # 0.5 10^3/uL (0.0-0.8); MONO % 8.6 % (2.0-8.0); NEUTROPHILS # 3.8 10^3/uL (1.5-8.5); NEUTROPHILS % 60.7 % (36.0-66.0); PLATELET COUNT, AUTOMATED 286 10^3/uL (150-450); RED BLOOD COUNT 4.38 10^6/uL (4.00-5.40); WHITE BLOOD COUNT 6.3 10^3/uL (4.0-10.0)
[2022-08-18 13:50] LABS: ALBUMIN 3.6 GM/DL (3.2-5.2); ALT/SGPT 25 U/L (12-78); BILIRUBIN,TOTAL 0.4 MG/DL (0.2-1.0); BLOOD UREA NITROGEN 9 MG/DL (7-18); CALCIUM LEVEL 8.6 MG/DL (8.5-10.1); CARBON DIOXIDE LEVEL 27 MEQ/L (21-32); CHLORIDE LEVEL 107 MEQ/L (98-107); CHOLESTEROL LEVEL 236 MG/DL (<200); CREATININE FOR GFR 0.66 MG/DL (0.55-1.30); FERRITIN 15 NG/ML (8-252); GLOMERULAR FILTRATION RATE > 60.0 (>58); GLUCOSE, FASTING 88 MG/DL (70-100); HDL CHOLESTEROL 50 MG/DL (>40); IRON (FE) 111 UG/DL (50-170); LDL CHOLESTEROL 160 MG/DL (<100); NON-HDL-C 186 MG/DL; PERCENT SATURATION 35.1 % (13.2-45.0); POTASSIUM SERUM 4.2 MEQ/L (3.5-5.1); SODIUM LEVEL 141 MEQ/L (136-145); TOTAL IRON BINDING CAPACITY 316 UG/DL (250-450); TOTAL PROTEIN 6.9 GM/DL (6.4-8.2); TRIGLYCERIDES LEVEL 131 MG/DL (<150)
[2022-08-18 14:13] LABS: TOTAL 25(OH) VITAMIN D 25.9 NG/ML (30.0-100.0); VITAMIN B12 LEVEL 196 PG/ML (247-911)
[2022-08-18 15:17] LABS: HEMOGLOBIN A1c 5.3 %
== END ==
LOC: M WUC 09:43
PROVIDERS: ATTEND Family Medicine
DX: E66.9 Obesity, unspecified (principal); Z13.220 Encounter for screening for lipoid disorders; Z13.1 Encounter for screening for diabetes mellitus; D50.9 Iron deficiency anemia, unspecified

== ENCOUNTER → 2022-12-31 | Outpatient (CLI) | payer MEDICARE | LOC: M WHC 12:15 | PROVIDERS: ATTEND Family Medicine | DX: Z12.31 Encounter for screening mammogram for malignant neoplasm of breast (principal) ==

== ENCOUNTER → 2022-12-31 | Outpatient (CLI) | payer MEDICARE ==
[2022-12-31 18:20] LABS: ALBUMIN 3.8 G/DL (3.2-5.2); ALKALINE PHOSPHATASE 62 U/L (46-116); ALT/SGPT 25 U/L (7.0-40); AST/SGOT 21 U/L (<34); BILIRUBIN,TOTAL 0.4 MG/DL (0.3-1.2); BLOOD UREA NITROGEN 11 MG/DL (9-23); CARBON DIOXIDE LEVEL 27 MMOL/L (20-31); CHLORIDE LEVEL 105 MMOL/L (98-107); GLOMERULAR FILTRATION RATE > 60.0 (>58); GLUCOSE, FASTING 85 MG/DL (60-100); POTASSIUM SERUM 4.6 MMOL/L (3.5-5.1); PROLACTIN 3.51 NG/ML; SODIUM LEVEL 138 MMOL/L (136-145); THYROID STIMULATING HORMONE 2.016 uIU/ML (0.55-4.78); TOTAL PROTEIN 6.7 G/DL (5.7-8.2)
[2023-01-11 02:07] LABS: 17 HYDROXY PROGESTERONE 20 ng/dL (.); TESTOSTERONE FREE (DIRECT) 0.6 pg/mL (0.0-4.2)
== END ==
LOC: M PLALAB 13:34
DX: N93.9 Abnormal uterine and vaginal bleeding, unspecified (principal); Z79.899 Other long term (current) drug therapy

== ENCOUNTER → 2022-12-31 | Outpatient (REF) | payer MEDICARE | LOC: M PLALAB 16:21 | PROVIDERS: ATTEND Nurse Practitioner Family | DX: Z12.4 Encounter for screening for malignant neoplasm of cervix (principal) ==

== ENCOUNTER → 2023-01-24 | Outpatient (CLI) | payer MEDICARE | LOC: M WHC 14:23 | PROVIDERS: ATTEND Nurse Practitioner Family | DX: R10.2 Pelvic and perineal pain (principal) ==

== ENCOUNTER → 2023-07-29 | Outpatient (CLI) | payer MEDICARE ==
[~2023-07-29] MED LIST changes: +AMOX875T2 PO; +FAMO-142 PO
[2023-07-29 17:43] LABS: C REACTIVE PROTEIN QUANTITATIV < 0.40 MG/DL (<1.0)
[2023-07-29 17:44] LABS: CPK CREATINE PHOSPHOKINASE 80 U/L (34-145)
[2023-07-29 17:45] LABS: BLOOD UREA NITROGEN 9 MG/DL (9-23); CALCIUM LEVEL 9.3 MG/DL (8.5-10.1); CARBON DIOXIDE LEVEL 28 MMOL/L (20-31); CHLORIDE LEVEL 106 MMOL/L (98-107); CREATININE FOR GFR 0.67 MG/DL (0.55-1.30); GLOMERULAR FILTRATION RATE > 60.0 (>58); GLUCOSE, FASTING 92 MG/DL (60-100); MAGNESIUM LEVEL 2.4 MG/DL (1.8-2.4); POTASSIUM SERUM 4.1 MMOL/L (3.5-5.1); RHEUMATOID FACTOR QUANT < 3.5 IU/ML (<14); SODIUM LEVEL 142 MMOL/L (136-145)
[2023-08-01 21:07] LABS: ANA (HEP2) Negative (.); CYCLIC CITRULLINATED PEPTIDE < 1 units (0-19)
== END ==
LOC: M WUC 10:41
PROVIDERS: ATTEND Family Medicine
DX: M79.10 Myalgia, unspecified site (principal); M25.50 Pain in unspecified joint

== ENCOUNTER 2023-08-03 14:06 | Emergency (ER) | payer MEDICARE ==
[~2023-08-03] VITALS: Ht 154.9 cm; Wt 86.4 kg
[~2023-08-03 14:06] MED LIST changes: -AMOX875T2 PO; -FAMO-142 PO
[2023-08-03] MEDS ORDERED: FAMO-142 PO (14:14)
[2023-08-03 15:25] LABS: RSV AMPLIFICATION NEGATIVE (NEGATIVE)
[2023-08-03 18:48] LABS: BASO # 0.1 10^3/uL (0.0-0.2); BASO % 0.7 % (0.0-1.0); EOS % 0.6 % (0.0-3.0); HEMATOCRIT 40.5 % (36.0-47.0); HEMOGLOBIN 13.6 g/dl (12.0-15.5); LYMPH # 2.3 10^3/uL (1.5-5.0); LYMPH % 32.8 % (24.0-44.0); MEAN CORPUSCULAR HEMOGLOBIN 31.1 pg (27.0-33.0); MEAN CORPUSCULAR HGB CONC 33.6 g/dl (32.0-36.5); MEAN CORPUSCULAR VOLUME 92.7 fl (80.0-96.0); MONO # 0.5 10^3/uL (0.0-0.8); MONO % 7.1 % (2.0-8.0); NEUTROPHILS # 4.2 10^3/uL (1.5-8.5); NEUTROPHILS % 58.7 % (36.0-66.0); PLATELET COUNT, AUTOMATED 273 10^3/uL (150-450); RED BLOOD COUNT 4.37 10^6/uL (4.00-5.40); WHITE BLOOD COUNT 7.1 10^3/uL (4.0-10.0)
[2023-08-03 19:06] LABS: ERYTHROCYTE SEDIMENTATION RATE 19 mm/hr (0-20)
[2023-08-03 19:15] LABS: C REACTIVE PROTEIN QUANTITATIV < 0.40 MG/DL (<1.0)
[2023-08-03 19:18] LABS: BLOOD UREA NITROGEN 6 MG/DL (9-23); CARBON DIOXIDE LEVEL 27 MMOL/L (20-31); CHLORIDE LEVEL 104 MMOL/L (98-107); CREATININE FOR GFR 0.63 MG/DL (0.55-1.30); GLOMERULAR FILTRATION RATE > 60.0 (>58); GLUCOSE, FASTING 110 MG/DL (60-100); POTASSIUM SERUM 3.9 MMOL/L (3.5-5.1); SODIUM LEVEL 139 MMOL/L (136-145)
[2023-08-03] MEDS ORDERED: AMOX875T2 PO (19:52)
[2023-08-03 20:07] VITALS: BP 119/76; TEMP 98.4; O2SAT 99
== END 2023-08-03 20:08 | disposition home or self-care (01) ==
LOC: M ED 14:06
DX: J01.90 Acute sinusitis, unspecified (principal); D64.9 Anemia, unspecified; Z98.84 Bariatric surgery status; Z79.899 Other long term (current) drug therapy

== ENCOUNTER 2023-08-11 15:32 | Inpatient (IN) | payer MEDICARE ==
[~2023-08-11] VITALS: Ht 154.9 cm; Wt 87.4 kg
[~2023-08-11 15:32] MED LIST changes: +AMOX875T2 PO; +FAMO-142 PO
[2023-08-11] MEDS ORDERED: NICOTINE 21MG/24HR 1 EA TRANSDERMAL TD ONE (17:00)
[2023-08-11] MEDS ORDERED: ALPRAZolam 0.5 MG TAB PO ONE ×2 (17:00→21:10)
[2023-08-11 17:27] LABS: HEMATOCRIT 41.5 % (36.0-47.0); HEMOGLOBIN 13.9 g/dl (12.0-15.5); MEAN CORPUSCULAR HEMOGLOBIN 30.5 pg (27.0-33.0); MEAN CORPUSCULAR HGB CONC 33.5 g/dl (32.0-36.5); PLATELET COUNT, AUTOMATED 267 10^3/uL (150-450); RED BLOOD COUNT 4.56 10^6/uL (4.00-5.40); WHITE BLOOD COUNT 6.7 10^3/uL (4.0-10.0)
[2023-08-11 17:39] LABS: AMPHETAMINES LEVEL URINE NEGATIVE (NEGATIVE)
[2023-08-11 17:40] LABS: BARBITURATES URINE NEGATIVE (NEGATIVE); CANNABINOIDS URINE NEGATIVE (NEGATIVE); COCAINE METABOLITE URINE NEGATIVE (NEGATIVE); METHADONE URINE NEGATIVE (NEGATIVE); OPIATES URINE NEGATIVE (NEGATIVE); PHENCYCLIDINE URINE NEGATIVE (NEGATIVE)
[2023-08-11 17:42] LABS: BENZODIAZEPINES URINE POSITIVE (NEGATIVE); ETHYL ALCOHOL (ETHANOL) < 0.003 % (0.000-0.010)
[2023-08-11 17:43] LABS: SALICYLATE LEVEL < 3.0 MG/DL (<30)
[2023-08-11 17:44] LABS: ALBUMIN 3.9 G/DL (3.2-5.2); ALKALINE PHOSPHATASE 55 U/L (46-116); ALT/SGPT 18 U/L (7.0-40); AST/SGOT 15 U/L (<34); BILIRUBIN,DIRECT < 0.1 MG/DL (<0.4); BILIRUBIN,TOTAL 0.3 MG/DL (0.3-1.2); BLOOD UREA NITROGEN 7 MG/DL (9-23); CALCIUM LEVEL 9.2 MG/DL (8.5-10.1); CARBON DIOXIDE LEVEL 25 MMOL/L (20-31); CHLORIDE LEVEL 106 MMOL/L (98-107); CREATININE FOR GFR 0.55 MG/DL (0.55-1.30); GLOMERULAR FILTRATION RATE > 60.0 (>58); GLUCOSE, FASTING 99 MG/DL (60-100); POTASSIUM SERUM 3.9 MMOL/L (3.5-5.1); SODIUM LEVEL 141 MMOL/L (136-145); TOTAL PROTEIN 6.8 G/DL (5.7-8.2)
[2023-08-11 17:47] LABS: THYROID STIMULATING HORMONE 1.527 uIU/ML (0.55-4.78)
[2023-08-11 17:53] LABS: HCG, SERUM QUALITATIVE NEGATIVE (NEGATIVE)
[2023-08-11] MEDS ORDERED: traZODone 50 MG TAB PO PRN (19:15)
[2023-08-11] MEDS ORDERED: diphenhydrAMINE 25MG CAP PO PRN (19:15)
[2023-08-11] MEDS ORDERED: MOM 30ML SUSPENSION UDC PO PRN (19:15)
[2023-08-11] MEDS ORDERED: LORazepam 1 MG TAB PO PRN (19:15)
[2023-08-11] MEDS ORDERED: IBUPROFEN 400MG TAB PO PRN (19:15)
[2023-08-11] MEDS: ACETAMINOPHEN TAB 650MG DOSE (2X325MG) PO PRN (21:03)
[2023-08-11] MEDS ORDERED: FAMO-142 PO (23:47)
[2023-08-11] MEDS ORDERED: MULTCHW12 PO (23:47)
[2023-08-11] MEDS ORDERED: ALPR0.5T3 PO (23:47)
[2023-08-11] MEDS ORDERED: AMOX875T2 PO (23:47)
[2023-08-11] MEDS ORDERED: LEXA1TAB2 PO (23:47)
[2023-08-11] MEDS ORDERED: FLON1SPR NARES (23:47)
[2023-08-11] MEDS ORDERED: HOME MED LIST COMPLETE! XX SCH (23:50)
[2023-08-12 04:46] VITALS: BP 116/56; TEMP 97.2; O2SAT 98
[2023-08-12] MEDS: ACETAMINOPHEN TAB 650MG DOSE (2X325MG) PO PRN ×2 (06:08→13:14)
[2023-08-12] MEDS: MAALOX 30 ML SUSP *UDC PO PRN (06:08)
[2023-08-12] MEDS ORDERED: ALPRAZolam 0.5 MG TAB PO PRN (08:40)
[2023-08-12] MEDS ORDERED: AUGMENTIN 875 MG TAB PO SCH ×2 (09:00→10:01)
[2023-08-12] MEDS: clonazePAM 0.5 MG TAB PO SCH ×2 (09:55→21:14)
[2023-08-12] MEDS: NICOTINE 14 MG/24 HR TRANSDERMAL TD SCH (09:58)
[2023-08-12] MEDS: FLUTICASONE PROP 0.05% NASAL SPRAY 16 GM (FLONASE) NARES SCH (10:00)
[2023-08-12] MEDS: AUGMENTIN 875 MG TAB PO SCH ×2 (10:08→21:14)
[2023-08-12 16:44] VITALS: BP 126/60; TEMP 97.8; O2SAT 98
[2023-08-12] MEDS: ESCITALOPRAM OXALATE 10 MG TAB (LEXAPRO) PO SCH (21:14)
[2023-08-12] MEDS: PILL CUTTER 1 EACH XX PRN (21:14)
[2023-08-12] MEDS: FAMOTIDINE 20 MG TAB PO SCH (21:15)
[2023-08-13 06:57] VITALS: BP 117/56; TEMP 97.1; O2SAT 94
[2023-08-13] MEDS: PILL CUTTER 1 EACH XX PRN (09:38)
[2023-08-13] MEDS: clonazePAM 0.5 MG TAB PO SCH ×2 (09:38→20:17)
[2023-08-13] MEDS: FLUTICASONE PROP 0.05% NASAL SPRAY 16 GM (FLONASE) NARES SCH (09:40)
[2023-08-13] MEDS: NICOTINE 14 MG/24 HR TRANSDERMAL TD SCH (09:41)
[2023-08-13] MEDS: AUGMENTIN 875 MG TAB PO SCH ×2 (09:41→20:16)
[2023-08-13] MEDS: ACETAMINOPHEN TAB 650MG DOSE (2X325MG) PO PRN ×2 (09:43→15:50)
[2023-08-13] MEDS: NYSTATIN OINTMENT 15 GM TOP SCH ×2 (13:18→21:12)
[2023-08-13 16:21] VITALS: BP 110/70; TEMP 97.5; O2SAT 98
[2023-08-13] MEDS: FAMOTIDINE 20 MG TAB PO SCH (20:17)
[2023-08-13] MEDS: ESCITALOPRAM OXALATE 10 MG TAB (LEXAPRO) PO SCH (20:17)
[2023-08-14] MEDS: NYSTATIN OINTMENT 15 GM TOP SCH (05:55)
[2023-08-14 07:06] VITALS: BP 119/64; TEMP 98.7; O2SAT 95
[2023-08-14] MEDS: clonazePAM 0.5 MG TAB PO SCH ×2 (08:22→20:58)
[2023-08-14] MEDS: FLUTICASONE PROP 0.05% NASAL SPRAY 16 GM (FLONASE) NARES SCH (08:23)
[2023-08-14] MEDS: NICOTINE 14 MG/24 HR TRANSDERMAL TD SCH (08:24)
[2023-08-14] MEDS: AUGMENTIN 875 MG TAB PO SCH ×2 (08:24→20:59)
[2023-08-14] MEDS ORDERED: ALPRAZolam 0.25 MG TAB PO PRN (10:40)
[2023-08-14] MEDS: MAALOX 30 ML SUSP *UDC PO PRN (13:57)
[2023-08-14 16:05] VITALS: BP 119/59; TEMP 97.7; O2SAT 95
[2023-08-14] MEDS: PILL CUTTER 1 EACH XX PRN (20:56)
[2023-08-14] MEDS: ACETAMINOPHEN TAB 650MG DOSE (2X325MG) PO PRN (20:57)
[2023-08-14] MEDS: ESCITALOPRAM OXALATE 10 MG TAB (LEXAPRO) PO SCH (20:58)
[2023-08-14] MEDS: FAMOTIDINE 20 MG TAB PO SCH (20:58)
[2023-08-14] MEDS: MICONAZOLE-7 VAGINAL 2% CREAM 47.7GM PV SCH (22:37)
[2023-08-15 06:37] VITALS: BP 93/50; TEMP 98.7; O2SAT 98
[2023-08-15] MEDS: AUGMENTIN 875 MG TAB PO SCH ×2 (08:24→20:12)
[2023-08-15] MEDS: FLUTICASONE PROP 0.05% NASAL SPRAY 16 GM (FLONASE) NARES SCH (08:24)
[2023-08-15] MEDS: clonazePAM 0.5 MG TAB PO SCH ×2 (08:25→20:06)
[2023-08-15] MEDS: NICOTINE 14 MG/24 HR TRANSDERMAL TD SCH (08:25)
[2023-08-15] MEDS: ACETAMINOPHEN TAB 650MG DOSE (2X325MG) PO PRN ×2 (11:33→20:10)
[2023-08-15 16:15] VITALS: BP 105/55; TEMP 98.6; O2SAT 100
[2023-08-15] MEDS: PILL CUTTER 1 EACH XX PRN (20:06)
[2023-08-15] MEDS: FAMOTIDINE 20 MG TAB PO SCH (20:07)
[2023-08-15] MEDS: MICONAZOLE-7 VAGINAL 2% CREAM 47.7GM PV SCH (20:08)
[2023-08-15] MEDS ORDERED: ESCITALOPRAM OXALATE 5MG TABLET (LEXAPRO) PO SCH (21:00)
[2023-08-15] MEDS ORDERED: ESCITALOPRAM OXALATE 10 MG TAB (LEXAPRO) PO SCH (21:00)
[2023-08-16 06:15] VITALS: BP 115/56; TEMP 97.4; O2SAT 96
[2023-08-16] MEDS: ACETAMINOPHEN TAB 650MG DOSE (2X325MG) PO PRN (07:27)
[2023-08-16] MEDS: clonazePAM 0.5 MG TAB PO SCH (08:13)
[2023-08-16] MEDS: FLUTICASONE PROP 0.05% NASAL SPRAY 16 GM (FLONASE) NARES SCH (08:14)
[2023-08-16] MEDS: NICOTINE 14 MG/24 HR TRANSDERMAL TD SCH (08:15)
[2023-08-16] MEDS ORDERED: LEXA5TAB13 PO (10:36)
[2023-08-16] MEDS ORDERED: CLON0.5T2 PO (10:36)
[2023-08-16] MEDS ORDERED: LEXA1TAB2 PO (10:36)
[2023-08-16] MEDS ORDERED: NICO14PA TD (10:36)
[2023-08-16] MEDS ORDERED: ALPR0.25 PO (10:47)
== END 2023-08-16 11:40 | disposition home or self-care (01) | DRG 880 ==
LOC: M ED 15:32 → M ED INP 19:13 → M PSY 08-12 03:10
PROVIDERS: ADMIT Student in an Organized Health Care Education/Training Program; ATTEND Student in an Organized Health Care Education/Training Program
DX: F41.1 Generalized anxiety disorder (principal); F41.0 Panic disorder [episodic paroxysmal anxiety]; F45.1 Undifferentiated somatoform disorder; F32.A Depression, unspecified; K21.9 Gastro-esophageal reflux disease without esophagitis; F17.290 Nicotine dependence, other tobacco product, uncomplicated; J32.9 Chronic sinusitis, unspecified; J30.2 Other seasonal allergic rhinitis; Z79.899 Other long term (current) drug therapy; Z62.811 Personal history of psychological abuse in childhood; Z62.810 Personal history of physical and sexual abuse in childhood; Z98.84 Bariatric surgery status; Z87.74 Personal history of (corrected) congenital malformations of heart and circulatory system

== ENCOUNTER 2023-08-30 09:45 | Emergency (ER) | payer MEDICARE ==
[~2023-08-30] VITALS: Ht 154.9 cm; Wt 84.6 kg
[~2023-08-30 09:45] MED LIST changes: +ALPR0.25 PO; +ALPR0.5T3 PO; +CLON0.5T2 PO; +FLON1SPR NARES; +LEXA5TAB13 PO; +MULTCHW12 PO; +NICO14PA TD
[2023-08-30] MEDS ORDERED: FLUC150T9 (09:59)
[2023-08-30] MEDS ORDERED: ACET1TAB55 PO (10:02)
[2023-08-30 13:21] LABS: APPEARANCE, URINE HAZY (CLEAR); BACTERIA, URINE AUTO 1+ (NEGATIVE); BILIRUBIN, URINE AUTO NEGATIVE (NEGATIVE); BLOOD, URINE BLOOD NEGATIVE (NEGATIVE); COLOR, URINE YELLOW (YELLOW); GLUCOSE, URINE (UA) AUTO NEGATIVE (NEGATIVE); KETONE, URINE AUTO 1+ mg/dL (NEGATIVE); LEUKOCYTE ESTERASE, URINE AUTO NEGATIVE (NEGATIVE); MUCUS, URINE SMALL (NEGATIVE); NITRITE, URINE AUTO NEGATIVE (NEGATIVE); PROTEIN, URINE AUTO NEGATIVE (NEGATIVE); RBC, URINE AUTO 1 /HPF (0-3); SPECIFIC GRAVITY URINE AUTO 1.006 (1.002-1.035); SQUAMOUS EPITHELIAL CELL UR AU 2 /HPF (0-6); UROBILINOGEN, URINE AUTO 0.2 mg/dL (0.0-2.0); WBC, URINE AUTO 1 /HPF (0-3)
[2023-08-30 14:21] VITALS: BP 110/61; TEMP 98.5; O2SAT 96
[2023-08-30] MEDS ORDERED: ACETAMINOPHEN 325 MG TAB PO ONE (17:25)
[2023-08-30] MEDS ORDERED: KETO2CR TOP (17:42)
== END 2023-08-30 18:03 | disposition home or self-care (01) ==
LOC: M ED 09:45
DX: F41.9 Anxiety disorder, unspecified (principal); K21.9 Gastro-esophageal reflux disease without esophagitis; F42.9 Obsessive-compulsive disorder, unspecified; Z79.899 Other long term (current) drug therapy

== ENCOUNTER 2023-09-12 11:33 | Emergency (ER) | payer MEDICARE ==
[~2023-09-12] VITALS: Ht 154.9 cm; Wt 83.7 kg
[~2023-09-12 11:33] MED LIST changes: +ACET1TAB55 PO; +FLUC150T9; +KETO2CR TOP
[2023-09-12] MEDS ORDERED: LEXA5TAB13 PO (11:47)
[2023-09-12 12:44] LABS: HEMOGLOBIN 13.5 g/dl (12.0-15.5); MEAN CORPUSCULAR HEMOGLOBIN 31.2 pg (27.0-33.0); MEAN CORPUSCULAR HGB CONC 33.8 g/dl (32.0-36.5); MEAN CORPUSCULAR VOLUME 92.4 fl (80.0-96.0); PLATELET COUNT, AUTOMATED 307 10^3/uL (150-450); RED BLOOD COUNT 4.33 10^6/uL (4.00-5.40); WHITE BLOOD COUNT 7.1 10^3/uL (4.0-10.0)
[2023-09-12 13:04] LABS: ETHYL ALCOHOL (ETHANOL) < 0.003 % (0.000-0.010); HCG, SERUM QUALITATIVE NEGATIVE (NEGATIVE)
[2023-09-12 13:06] LABS: ALBUMIN 3.5 G/DL (3.2-5.2); ALKALINE PHOSPHATASE 53 U/L (46-116); ALT/SGPT 10 U/L (7.0-40); AST/SGOT 11 U/L (<34); BILIRUBIN,DIRECT 0.1 MG/DL (<0.4); BILIRUBIN,TOTAL 0.4 MG/DL (0.3-1.2); BLOOD UREA NITROGEN 6 MG/DL (9-23); CALCIUM LEVEL 8.9 MG/DL (8.5-10.1); CARBON DIOXIDE LEVEL 25 MMOL/L (20-31); CHLORIDE LEVEL 107 MMOL/L (98-107); CREATININE FOR GFR 0.52 MG/DL (0.55-1.30); GLOMERULAR FILTRATION RATE > 60.0 (>58); GLUCOSE, FASTING 93 MG/DL (60-100); SALICYLATE LEVEL < 3.0 MG/DL (<30); SODIUM LEVEL 141 MMOL/L (136-145); TOTAL PROTEIN 6.4 G/DL (5.7-8.2)
[2023-09-12 13:16] LABS: AMPHETAMINES LEVEL URINE NEGATIVE (NEGATIVE); BARBITURATES URINE NEGATIVE (NEGATIVE); BENZODIAZEPINES URINE NEGATIVE (NEGATIVE); CANNABINOIDS URINE NEGATIVE (NEGATIVE); COCAINE METABOLITE URINE NEGATIVE (NEGATIVE); METHADONE URINE NEGATIVE (NEGATIVE); PHENCYCLIDINE URINE NEGATIVE (NEGATIVE)
[2023-09-12 13:17] LABS: OPIATES URINE NEGATIVE (NEGATIVE)
[2023-09-12] MEDS ORDERED: MED REC IN PROGRESS XX SCH (14:30)
[2023-09-12] MEDS ORDERED: LEXA1TAB2 PO (15:20)
[2023-09-12] MEDS ORDERED: HOME MED LIST COMPLETE! XX SCH (15:25)
[2023-09-12] MEDS ORDERED: ALPR0.25 PO (15:43)
[2023-09-12 19:11] VITALS: TEMP 97
[2023-09-12] MEDS ORDERED: HYDR1CRE30 TOP (20:44)
[2023-09-12 20:58] VITALS: BP 113/57; O2SAT 97
== END 2023-09-12 20:55 | disposition home or self-care (01) ==
LOC: M ED 11:33
DX: L29.9 Pruritus, unspecified (principal); F41.1 Generalized anxiety disorder; F41.0 Panic disorder [episodic paroxysmal anxiety]; Z98.84 Bariatric surgery status; F17.290 Nicotine dependence, other tobacco product, uncomplicated; Z79.899 Other long term (current) drug therapy; Z88.8 Allergy status to other drugs, medicaments and biological substances

== ENCOUNTER 2023-09-18 01:49 | Inpatient (IN) | payer MEDICARE ==
[~2023-09-18] VITALS: Ht 154.9 cm; Wt 83.2 kg
[~2023-09-18 01:49] MED LIST changes: +HYDR1CRE30 TOP
[2023-09-18 02:55] LABS: HEMATOCRIT 41.3 % (36.0-47.0); HEMOGLOBIN 13.9 g/dl (12.0-15.5); MEAN CORPUSCULAR HEMOGLOBIN 31.2 pg (27.0-33.0); MEAN CORPUSCULAR HGB CONC 33.7 g/dl (32.0-36.5); MEAN CORPUSCULAR VOLUME 92.6 fl (80.0-96.0); PLATELET COUNT, AUTOMATED 295 10^3/uL (150-450); RED BLOOD COUNT 4.46 10^6/uL (4.00-5.40); WHITE BLOOD COUNT 6.8 10^3/uL (4.0-10.0)
[2023-09-18 03:18] LABS: ETHYL ALCOHOL (ETHANOL) < 0.003 % (0.000-0.010)
[2023-09-18 03:20] LABS: ALBUMIN 3.7 G/DL (3.2-5.2); ALKALINE PHOSPHATASE 53 U/L (46-116); ALT/SGPT 13 U/L (7.0-40); AST/SGOT 12 U/L (<34); BILIRUBIN,DIRECT 0.1 MG/DL (<0.4); BILIRUBIN,TOTAL 0.3 MG/DL (0.3-1.2); BLOOD UREA NITROGEN 7 MG/DL (9-23); CALCIUM LEVEL 8.8 MG/DL (8.5-10.1); CARBON DIOXIDE LEVEL 24 MMOL/L (20-31); CHLORIDE LEVEL 109 MMOL/L (98-107); CREATININE FOR GFR 0.55 MG/DL (0.55-1.30); GLOMERULAR FILTRATION RATE > 60.0 (>58); GLUCOSE, FASTING 107 MG/DL (60-100); POTASSIUM SERUM 3.8 MMOL/L (3.5-5.1); SALICYLATE LEVEL < 3.0 MG/DL (<30); SODIUM LEVEL 142 MMOL/L (136-145); TOTAL PROTEIN 6.6 G/DL (5.7-8.2)
[2023-09-18 03:22] LABS: THYROID STIMULATING HORMONE 3.945 uIU/ML (0.55-4.78)
[2023-09-18 03:41] LABS: AMPHETAMINES LEVEL URINE NEGATIVE (NEGATIVE); BARBITURATES URINE NEGATIVE (NEGATIVE); CANNABINOIDS URINE NEGATIVE (NEGATIVE); COCAINE METABOLITE URINE NEGATIVE (NEGATIVE); METHADONE URINE NEGATIVE (NEGATIVE); OPIATES URINE NEGATIVE (NEGATIVE); PHENCYCLIDINE URINE NEGATIVE (NEGATIVE)
[2023-09-18 03:43] LABS: BENZODIAZEPINES URINE POSITIVE (NEGATIVE)
[2023-09-18] MEDS ORDERED: ACETAMINOPHEN TAB 650MG DOSE (2X325MG) PO ONE (05:45)
[2023-09-18] MEDS ORDERED: ALPRAZolam 0.25 MG TAB PO ONE ×2 (05:45→06:10)
[2023-09-18] MEDS ORDERED: THERTAB52 PO (06:47)
[2023-09-18] MEDS ORDERED: NICO14DI6 TOP (06:47)
[2023-09-18] MEDS ORDERED: HOME MED LIST COMPLETE! XX SCH (06:50)
[2023-09-18] MEDS ORDERED: MAALOX 30 ML SUSP *UDC PO PRN (07:15)
[2023-09-18] MEDS ORDERED: IBUPROFEN 400MG TAB PO PRN (07:15)
[2023-09-18] MEDS ORDERED: NICOTINE 14 MG/24 HR TRANSDERMAL TOP PRN (07:15)
[2023-09-18] MEDS ORDERED: MOM 30ML SUSPENSION UDC PO PRN (07:15)
[2023-09-18] MEDS ORDERED: ALPRAZolam 0.5 MG TAB PO PRN (07:15)
[2023-09-18] MEDS ORDERED: diphenhydrAMINE 25MG CAP PO PRN (07:15)
[2023-09-18] MEDS ORDERED: traZODone 50 MG TAB PO PRN (07:15)
[2023-09-18 07:34] LABS: HCG, SERUM QUALITATIVE NEGATIVE (NEGATIVE)
[2023-09-18 09:36] VITALS: BP 120/65; TEMP 98.2; O2SAT 96
[2023-09-18] MEDS: NICOTINE 21MG/24HR 1 EA TRANSDERMAL TD SCH (10:25)
[2023-09-18] MEDS: ACETAMINOPHEN TAB 650MG DOSE (2X325MG) PO PRN ×2 (14:00→23:50)
[2023-09-18] MEDS: FLUTICASONE PROP 0.05% NASAL SPRAY 16 GM (FLONASE) NARES SCH (15:56)
[2023-09-18 18:09] VITALS: BP 120/59; TEMP 98.6
[2023-09-18] MEDS: ESCITALOPRAM OXALATE 10 MG TAB (LEXAPRO) PO SCH (21:05)
[2023-09-18] MEDS: ESCITALOPRAM OXALATE 5MG TABLET (LEXAPRO) PO SCH (21:05)
[2023-09-18] MEDS: FAMOTIDINE 20 MG TAB PO SCH (21:05)
[2023-09-18] MEDS ORDERED: ALPRAZolam 0.5 MG TAB PO ONE (22:00)
[2023-09-19 06:20] VITALS: BP 111/60; TEMP 98.5; O2SAT 97
[2023-09-19] MEDS: NICOTINE 21MG/24HR 1 EA TRANSDERMAL TD SCH (08:36)
[2023-09-19] MEDS: FLUTICASONE PROP 0.05% NASAL SPRAY 16 GM (FLONASE) NARES SCH (08:36)
[2023-09-19] MEDS: clonazePAM 0.5 MG TAB PO SCH ×2 (08:49→21:25)
[2023-09-19] MEDS: GABAPENTIN 100 MG CAP PO SCH ×3 (08:49→21:25)
[2023-09-19] MEDS: ACETAMINOPHEN TAB 650MG DOSE (2X325MG) PO PRN (12:06)
[2023-09-19 14:00] VITALS: BP 135/63; TEMP 98.8; O2SAT 97
[2023-09-19] MEDS: SODIUM CHLORIDE NASAL 0.65% SPRAY BTL (OCEAN) SCH ×2 (15:34→21:25)
[2023-09-19] MEDS: FAMOTIDINE 20 MG TAB PO SCH (20:07)
[2023-09-19] MEDS: ESCITALOPRAM OXALATE 5MG TABLET (LEXAPRO) PO SCH (21:25)
[2023-09-19] MEDS: ESCITALOPRAM OXALATE 10 MG TAB (LEXAPRO) PO SCH (21:25)
[2023-09-20 06:41] VITALS: BP 135/63; TEMP 98; O2SAT 96
[2023-09-20] MEDS: FLUTICASONE PROP 0.05% NASAL SPRAY 16 GM (FLONASE) NARES SCH (08:06)
[2023-09-20] MEDS: SODIUM CHLORIDE NASAL 0.65% SPRAY BTL (OCEAN) SCH ×2 (08:06→20:10)
[2023-09-20] MEDS: clonazePAM 0.5 MG TAB PO SCH ×2 (08:07→20:10)
[2023-09-20] MEDS: GABAPENTIN 100 MG CAP PO SCH ×3 (08:07→20:10)
[2023-09-20] MEDS: NICOTINE 21MG/24HR 1 EA TRANSDERMAL TD SCH (08:08)
[2023-09-20] MEDS: ACETAMINOPHEN TAB 650MG DOSE (2X325MG) PO PRN ×2 (10:55→19:25)
[2023-09-20 13:16] VITALS: BP 110/54; TEMP 98.1; O2SAT 99
[2023-09-20 16:23] VITALS: BP 113/60; TEMP 98.1; O2SAT 99
[2023-09-20] MEDS: ESCITALOPRAM OXALATE 5MG TABLET (LEXAPRO) PO SCH (20:10)
[2023-09-20] MEDS: ESCITALOPRAM OXALATE 10 MG TAB (LEXAPRO) PO SCH (20:10)
[2023-09-20] MEDS: FAMOTIDINE 20 MG TAB PO SCH (20:10)
[2023-09-21 06:43] VITALS: BP 120/58; TEMP 98.2; O2SAT 97
[2023-09-21] MEDS: GABAPENTIN 100 MG CAP PO SCH ×3 (08:31→21:38)
[2023-09-21] MEDS: FLUTICASONE PROP 0.05% NASAL SPRAY 16 GM (FLONASE) NARES SCH (08:31)
[2023-09-21] MEDS: clonazePAM 0.5 MG TAB PO SCH ×2 (08:31→21:38)
[2023-09-21] MEDS: SODIUM CHLORIDE NASAL 0.65% SPRAY BTL (OCEAN) SCH ×2 (08:31→21:37)
[2023-09-21] MEDS: NICOTINE 21MG/24HR 1 EA TRANSDERMAL TD SCH (08:33)
[2023-09-21 18:35] VITALS: BP 118/57; TEMP 97.1; O2SAT 98
[2023-09-21] MEDS: FAMOTIDINE 20 MG TAB PO SCH (21:39)
[2023-09-21] MEDS: ESCITALOPRAM OXALATE 10 MG TAB (LEXAPRO) PO SCH (21:39)
[2023-09-21] MEDS: ESCITALOPRAM OXALATE 5MG TABLET (LEXAPRO) PO SCH (21:39)
[2023-09-22 06:29] VITALS: BP 110/55; TEMP 98.2; O2SAT 97
[2023-09-22] MEDS: FLUTICASONE PROP 0.05% NASAL SPRAY 16 GM (FLONASE) NARES SCH (08:14)
[2023-09-22] MEDS: SODIUM CHLORIDE NASAL 0.65% SPRAY BTL (OCEAN) SCH ×2 (08:14→21:29)
[2023-09-22] MEDS: GABAPENTIN 100 MG CAP PO SCH ×3 (08:15→21:27)
[2023-09-22] MEDS: NICOTINE 21MG/24HR 1 EA TRANSDERMAL TD SCH (08:15)
[2023-09-22] MEDS: clonazePAM 0.5 MG TAB PO SCH ×2 (08:15→21:27)
[2023-09-22] MEDS: ACETAMINOPHEN TAB 650MG DOSE (2X325MG) PO PRN (08:18)
[2023-09-22 18:40] VITALS: BP 140/63; TEMP 97.5
[2023-09-22] MEDS: FAMOTIDINE 20 MG TAB PO SCH (21:27)
[2023-09-22] MEDS: ESCITALOPRAM OXALATE 10 MG TAB (LEXAPRO) PO SCH (21:27)
[2023-09-22] MEDS: ESCITALOPRAM OXALATE 5MG TABLET (LEXAPRO) PO SCH (21:27)
[2023-09-23 05:53] VITALS: BP 117/57; TEMP 98.8; O2SAT 95
[2023-09-23] MEDS: SODIUM CHLORIDE NASAL 0.65% SPRAY BTL (OCEAN) SCH (08:58)
[2023-09-23] MEDS: clonazePAM 0.5 MG TAB PO SCH (08:58)
[2023-09-23] MEDS: FLUTICASONE PROP 0.05% NASAL SPRAY 16 GM (FLONASE) NARES SCH (08:58)
[2023-09-23] MEDS: GABAPENTIN 100 MG CAP PO SCH (08:58)
[2023-09-23] MEDS: NICOTINE 21MG/24HR 1 EA TRANSDERMAL TD SCH (09:00)
[2023-09-23] MEDS ORDERED: LEXA5TAB13 PO (10:10)
[2023-09-23] MEDS ORDERED: GABA-1171 PO (10:10)
[2023-09-23] MEDS ORDERED: LEXA1TAB2 PO (10:10)
[2023-09-23] MEDS ORDERED: CLON0.5T2 PO (10:10)
[2023-09-23] MEDS ORDERED: Sodium Chloride Nasal Spray (10:10)
== END 2023-09-23 11:20 | disposition home or self-care (01) | DRG 880 ==
LOC: M ED 01:49 → M ED INP 07:13 → M PSY 09:43
PROVIDERS: ADMIT Psychiatry & Neurology Psychiatry; ATTEND Student in an Organized Health Care Education/Training Program
DX: F41.1 Generalized anxiety disorder (principal); F60.7 Dependent personality disorder; K21.9 Gastro-esophageal reflux disease without esophagitis; J30.2 Other seasonal allergic rhinitis; F17.290 Nicotine dependence, other tobacco product, uncomplicated; Z56.0 Unemployment, unspecified; Z62.810 Personal history of physical and sexual abuse in childhood; Z87.74 Personal history of (corrected) congenital malformations of heart and circulatory system; Z79.899 Other long term (current) drug therapy; Z88.8 Allergy status to other drugs, medicaments and biological substances; Z98.84 Bariatric surgery status

== ENCOUNTER 2023-12-02 11:58 | Emergency (ER) | payer MEDICARE ==
[~2023-12-02] VITALS: Ht 154.9 cm; Wt 84.8 kg
[~2023-12-02 11:58] MED LIST changes: +NICO14DI6 TOP; +Sodium Chloride Nasal Spray; +THERTAB52 PO
[2023-12-02 12:41] VITALS: TEMP 97.3
[2023-12-02 14:11] LABS: BASO % 0.6 % (0.0-1.0); EOS % 0.6 % (0.0-3.0); HEMATOCRIT 38.9 % (36.0-47.0); HEMOGLOBIN 12.6 g/dl (12.0-15.5); LYMPH # 1.7 10^3/uL (1.5-5.0); LYMPH % 36.5 % (24.0-44.0); MEAN CORPUSCULAR HEMOGLOBIN 30.7 pg (27.0-33.0); MEAN CORPUSCULAR HGB CONC 32.4 g/dl (32.0-36.5); MEAN CORPUSCULAR VOLUME 94.6 fl (80.0-96.0); MONO # 0.3 10^3/uL (0.0-0.8); MONO % 7.3 % (2.0-8.0); NEUTROPHILS # 2.6 10^3/uL (1.5-8.5); PLATELET COUNT, AUTOMATED 270 10^3/uL (150-450); RED BLOOD COUNT 4.11 10^6/uL (4.00-5.40); WHITE BLOOD COUNT 4.7 10^3/uL (4.0-10.0)
[2023-12-02 14:23] LABS: INR 1.01; PARTIAL THROMBOPLASTIN TIME 28.7 SECONDS (24.8-34.2)
[2023-12-02 14:36] LABS: LIPASE 60 U/L (12-53)
[2023-12-02 14:37] LABS: CPK CREATINE PHOSPHOKINASE 73 U/L (34-145)
[2023-12-02 14:38] LABS: ALBUMIN 3.8 G/DL (3.2-5.2); ALKALINE PHOSPHATASE 52 U/L (46-116); ALT/SGPT 23 U/L (7.0-40); AST/SGOT 14 U/L (<34); BILIRUBIN,DIRECT < 0.1 MG/DL (<0.4); BILIRUBIN,TOTAL 0.3 MG/DL (0.3-1.2); BLOOD UREA NITROGEN 14 MG/DL (9-23); CALCIUM LEVEL 8.4 MG/DL (8.5-10.1); CARBON DIOXIDE LEVEL 28 MMOL/L (20-31); CHLORIDE LEVEL 107 MMOL/L (98-107); CREATININE FOR GFR 0.61 MG/DL (0.55-1.30); GLOMERULAR FILTRATION RATE > 60.0 (>58); GLUCOSE, FASTING 108 MG/DL (60-100); POTASSIUM SERUM 4.7 MMOL/L (3.5-5.1); SODIUM LEVEL 138 MMOL/L (136-145); TOTAL PROTEIN 6.3 G/DL (5.7-8.2)
[2023-12-02 14:41] LABS: CK-MB VALUE MASS < 1.0 NG/ML (<3.6); MB/CK RELATIVE INDEX 1.36 (< OR =4)
[2023-12-02 14:45] LABS: THYROID STIMULATING HORMONE 2.298 uIU/ML (0.55-4.78)
[2023-12-02 14:47] LABS: HCG, SERUM QUALITATIVE NEGATIVE (NEGATIVE)
[2023-12-02 17:38] VITALS: BP 107/53; O2SAT 97
== END 2023-12-02 17:41 | disposition home or self-care (01) ==
LOC: M ED 11:58
DX: M79.604 Pain in right leg (principal); F17.290 Nicotine dependence, other tobacco product, uncomplicated; R00.1 Bradycardia, unspecified; Z88.8 Allergy status to other drugs, medicaments and biological substances; Z79.1 Long term (current) use of non-steroidal anti-inflammatories (NSAID); Z79.899 Other long term (current) drug therapy; Z79.810 Long term (current) use of selective estrogen receptor modulators (SERMs)

== ENCOUNTER → 2024-01-20 | Outpatient (REF) | payer MEDICARE | LOC: M SFHCWAGY 14:53 | PROVIDERS: ATTEND Nurse Practitioner Family | DX: Z12.4 Encounter for screening for malignant neoplasm of cervix (principal) | CPT/HCPCS: 87624; G0123 ==

== ENCOUNTER → 2024-01-20 | Outpatient (CLI) | payer MEDICARE | LOC: M WHC 10:39 | PROVIDERS: ATTEND Nurse Practitioner Family | DX: Z12.31 Encounter for screening mammogram for malignant neoplasm of breast (principal) ==

== ENCOUNTER → 2024-03-16 | Outpatient (CLI) | payer MEDICARE ==
[2024-03-16 18:14] LABS: BASO # 0.1 10^3/uL (0.0-0.2); BASO % 1.1 % (0.0-1.0); EOS % 0.9 % (0.0-3.0); HEMATOCRIT 41.4 % (36.0-47.0); HEMOGLOBIN 13.2 g/dl (12.0-15.5); LYMPH # 1.8 10^3/uL (1.5-5.0); LYMPH % 38.6 % (24.0-44.0); MEAN CORPUSCULAR HGB CONC 31.9 g/dl (32.0-36.5); MEAN CORPUSCULAR VOLUME 94.1 fl (80.0-96.0); MONO # 0.4 10^3/uL (0.0-0.8); MONO % 9.4 % (2.0-8.0); NEUTROPHILS # 2.3 10^3/uL (1.5-8.5); NEUTROPHILS % 49.8 % (36.0-66.0); PLATELET COUNT, AUTOMATED 324 10^3/uL (150-450); WHITE BLOOD COUNT 4.6 10^3/uL (4.0-10.0)
[2024-03-16 18:41] LABS: TOTAL IRON BINDING CAPACITY 390 UG/DL (250-425)
[2024-03-16 18:43] LABS: ALBUMIN 3.9 G/DL (3.2-5.2); ALKALINE PHOSPHATASE 63 U/L (46-116); ALT/SGPT 27 U/L (7.0-40); AST/SGOT 17 U/L (<34); BILIRUBIN,TOTAL 0.5 MG/DL (0.3-1.2); BLOOD UREA NITROGEN 12 MG/DL (9-23); CALCIUM LEVEL 8.9 MG/DL (8.5-10.1); CARBON DIOXIDE LEVEL 29 MMOL/L (20-31); CHLORIDE LEVEL 106 MMOL/L (98-107); CHOLESTEROL LEVEL 233 MG/DL (<200); CREATININE FOR GFR 0.64 MG/DL (0.55-1.30); FREE T4 0.86 NG/DL (0.89-1.76); GLOMERULAR FILTRATION RATE > 60.0 (>58); GLUCOSE, FASTING 87 MG/DL (60-100); HDL CHOLESTEROL 50.6 MG/DL (>40); IRON (FE) 69 UG/DL (50-170); NON-HDL-C 182.4 MG/DL; PERCENT SATURATION 17.7 % (13.2-45.0); POTASSIUM SERUM 4.7 MMOL/L (3.5-5.1); SODIUM LEVEL 140 MMOL/L (136-145); THYROID STIMULATING HORMONE 2.275 uIU/ML (0.55-4.78); TOTAL 25(OH) VITAMIN D 27.9 NG/ML (20.0-100.0); TOTAL PROTEIN 6.8 G/DL (5.7-8.2); TRIGLYCERIDES LEVEL 87 MG/DL (<150)
[2024-03-16 18:44] LABS: VITAMIN B12 LEVEL 273 PG/ML (211-911)
== END ==
LOC: M WUC 11:28
PROVIDERS: ATTEND Family Medicine
DX: E55.9 Vitamin D deficiency, unspecified (principal); E66.9 Obesity, unspecified; R00.2 Palpitations; Z86.39 Personal history of other endocrine, nutritional and metabolic disease

== ENCOUNTER → 2024-03-30 | Outpatient (CLI) | payer MEDICARE | LOC: M CARPUL 10:21 | PROVIDERS: ATTEND Family Medicine | DX: R00.2 Palpitations (principal) ==

== ENCOUNTER 2024-07-30 10:28 | Day surgery (SDC) | payer MEDICARE ==
[~2024-07-30] VITALS: Ht 154.9 cm; Wt 87.9 kg
[~2024-07-30 10:28] MED LIST changes: +BUSP10TA79 PO; +CLON0.5T17 PO; +FLUTISP; +GABA-1172 PO; +NS 250 ML IV ONE
[2024-07-30] MEDS ORDERED: propofoL 200 MG/20 ML VIAL As Ordered ONE (12:02)
[2024-07-30] MEDS ORDERED: LIDOCAINE 2% 100MG/5ML SDV (FOR ANES.) As Ordered ONE (12:02)
[2024-07-30] MEDS ORDERED: fentaNYL 100 MCG/2 ML INJECTION As Ordered ONE (12:03)
[2024-07-30 12:36] VITALS: TEMP 97.8
[2024-07-30 12:55] VITALS: BP 104/56; O2SAT 97
== END 2024-07-30 13:25 | disposition home or self-care (01) ==
LOC: M OPP 10:28
PROVIDERS: ATTEND Internal Medicine Gastroenterology
DX: Z12.11 Encounter for screening for malignant neoplasm of colon (principal); Z86.0100 Personal history of colon polyps, unspecified; Z80.0 Family history of malignant neoplasm of digestive organs; K64.8 Other hemorrhoids; K21.9 Gastro-esophageal reflux disease without esophagitis; R12 Heartburn; Z98.0 Intestinal bypass and anastomosis status; F41.0 Panic disorder [episodic paroxysmal anxiety]; F32.A Depression, unspecified; J30.9 Allergic rhinitis, unspecified; F17.290 Nicotine dependence, other tobacco product, uncomplicated; Z88.8 Allergy status to other drugs, medicaments and biological substances; Z79.51 Long term (current) use of inhaled steroids; Z79.899 Other long term (current) drug therapy
CPT/HCPCS: 43235; G0105; J3010

== ENCOUNTER → 2024-11-23 | Outpatient (REF) | payer MEDICARE ==
[~2024-11-23] MED LIST changes: -NS 250 ML IV ONE
[2024-11-23 18:46] LABS: BASO % 0.4 % (0.0-1.0); EOS # 0.1 10^3/uL (0.0-0.5); EOS % 0.7 % (0.0-3.0); HEMATOCRIT 38.8 % (36.0-47.0); HEMOGLOBIN 12.3 g/dl (12.0-15.5); LYMPH # 2.4 10^3/uL (1.5-5.0); LYMPH % 33.3 % (24.0-44.0); MEAN CORPUSCULAR HEMOGLOBIN 29.7 pg (27.0-33.0); MEAN CORPUSCULAR HGB CONC 31.7 g/dl (32.0-36.5); MEAN CORPUSCULAR VOLUME 93.7 fl (80.0-96.0); MONO # 0.6 10^3/uL (0.0-0.8); MONO % 7.8 % (2.0-8.0); NEUTROPHILS # 4.1 10^3/uL (1.5-8.5); NEUTROPHILS % 57.5 % (36.0-66.0); PLATELET COUNT, AUTOMATED 297 10^3/uL (150-450); RED BLOOD COUNT 4.14 10^6/uL (4.00-5.40); WHITE BLOOD COUNT 7.1 10^3/uL (4.0-10.0)
[2024-11-23 19:15] LABS: ALBUMIN 3.5 G/DL (3.2-5.2); ALKALINE PHOSPHATASE 52 U/L (35-104); ALT/SGPT 19 U/L (7.0-40); AST/SGOT 14 U/L (<34); BILIRUBIN,TOTAL 0.4 MG/DL (0.3-1.2); BLOOD UREA NITROGEN 11 MG/DL (9-23); CALCIUM LEVEL 8.7 MG/DL (8.5-10.1); CARBON DIOXIDE LEVEL 26 MMOL/L (20-31); CHLORIDE LEVEL 109 MMOL/L (98-107); CREATININE FOR GFR 0.63 MG/DL (0.55-1.30); GLOMERULAR FILTRATION RATE > 60.0 (>58); GLUCOSE, FASTING 76 MG/DL (60-100); IRON (FE) 57 UG/DL (50-170); MAGNESIUM LEVEL 2.1 MG/DL (1.8-2.4); PERCENT SATURATION 15.9 % (13.2-45.0); POTASSIUM SERUM 4.3 MMOL/L (3.5-5.1); SODIUM LEVEL 143 MMOL/L (136-145); TOTAL IRON BINDING CAPACITY 359 UG/DL (250-425); TOTAL PROTEIN 6.6 G/DL (5.7-8.2)
[2024-11-23 19:16] LABS: FREE T4 1.06 NG/DL (0.89-1.76); TOTAL 25(OH) VITAMIN D 23.8 NG/ML (20.0-100.0); VITAMIN B12 LEVEL 247 PG/ML (211-911)
[2024-11-23 19:17] LABS: FOLATE 14.42 NG/ML (>5.4)
[2024-11-26 14:27] LABS: CHOLESTEROL LEVEL 207 MG/DL (<200); CHOLESTEROL RISK RATIO 3.67 (<5); HDL CHOLESTEROL 56.3 MG/DL (>40); LDL CHOLESTEROL 133.7 MG/DL (<100); NON-HDL-C 150.7 MG/DL; TRIGLYCERIDES LEVEL 85 MG/DL (<150)
== END ==
LOC: M SFHCLERA 09:17
PROVIDERS: ATTEND Family Medicine
DX: R25.2 Cramp and spasm (principal); R53.83 Other fatigue; E61.1 Iron deficiency; E78.2 Mixed hyperlipidemia

== ENCOUNTER → 2024-12-06 | Outpatient (CLI) | payer MEDICARE | LOC: M CARPUL 12:57 | PROVIDERS: ATTEND Internal Medicine Cardiovascular Disease | DX: R94.31 Abnormal electrocardiogram [ECG] [EKG] (principal) ==

== ENCOUNTER → 2024-12-07 | Outpatient (CLI) | payer MEDICARE | LOC: M EKG 13:02 | PROVIDERS: ATTEND Internal Medicine Cardiovascular Disease | DX: R00.2 Palpitations (principal) ==

== ENCOUNTER → 2024-12-14 | Outpatient (CLI) | payer MEDICARE, OTHER | LOC: M SLEEP HO 11:32 | PROVIDERS: ATTEND Internal Medicine Cardiovascular Disease | DX: G47.33 Obstructive sleep apnea (adult) (pediatric) (principal); R06.83 Snoring; J98.4 Other disorders of lung ==

== ENCOUNTER → 2025-05-01 | Outpatient (CLI) | payer MEDICARE | LOC: M WHC 13:07 | PROVIDERS: ATTEND Obstetrics & Gynecology | DX: Z12.31 Encounter for screening mammogram for malignant neoplasm of breast (principal); R92.313 Mammographic fatty tissue density, bilateral breasts ==

== ENCOUNTER → 2025-07-20 | Outpatient (CLI) | payer MEDICARE ==
[~2025-07-20] MED LIST changes: -IBUP-1022 PO; +IBUP600T42 PO
== END ==
LOC: M SLEEP 20:00
PROVIDERS: ATTEND Physician Assistant
DX: G47.33 Obstructive sleep apnea (adult) (pediatric) (principal)

== ENCOUNTER → 2025-07-31 | Outpatient (CLI) | payer MEDICARE, OTHER | LOC: M RAD 14:51 | PROVIDERS: ATTEND Obstetrics & Gynecology | DX: R10.20 Pelvic and perineal pain unspecified side (principal) ==

== ENCOUNTER → 2025-08-23 | Outpatient (REF) | payer MEDICARE, OTHER ==
[2025-08-23 17:22] LABS: BASO # 0.0 10^3/uL (0.0-0.2); BASO % 0.5 % (0.0-1.0); EOS # 0.0 10^3/uL (0.0-0.5); EOS % 0.6 % (0.0-3.0); LYMPH # 1.9 10^3/uL (1.5-5.0); LYMPH % 28.9 % (24.0-44.0); MONO # 0.5 10^3/uL (0.0-0.8); MONO % 7.2 % (2.0-8.0); NEUTROPHILS # 4.1 10^3/uL (1.5-8.5); NEUTROPHILS % 62.6 % (36.0-66.0); PLATELET COUNT, AUTOMATED 303 10^3/uL (150-450)
[2025-08-23 17:28] LABS: IRON (FE) 89 UG/DL (50-170); TOTAL 25(OH) VITAMIN D 33.8 NG/ML (20.0-100.0); VITAMIN B12 LEVEL 234 PG/ML (211-911)
[2025-08-23 17:29] LABS: ALT/SGPT 15 U/L (7.0-40); AST/SGOT 16 U/L (<34); CALCIUM LEVEL 8.7 MG/DL (8.5-10.1); CARBON DIOXIDE LEVEL 23 MMOL/L (20-31); CHLORIDE LEVEL 108 MMOL/L (98-107); CHOLESTEROL LEVEL 220 MG/DL (<200); CHOLESTEROL RISK RATIO 4.44 (<5); CREATININE FOR GFR 0.61 MG/DL (0.55-1.30); GLOMERULAR FILTRATION RATE > 90.0 (>58); LDL CHOLESTEROL 157.1 MG/DL (<100); MAGNESIUM LEVEL 2.0 MG/DL (1.8-2.4); NON-HDL-C 170.5 MG/DL; PERCENT SATURATION 28.7 % (13.2-45.0); POTASSIUM SERUM 3.9 MMOL/L (3.5-5.1); SODIUM LEVEL 143 MMOL/L (136-145); TRIGLYCERIDES LEVEL 67 MG/DL (<150)
== END ==
LOC: M SFHCLERA 11:21
PROVIDERS: ATTEND Family Medicine
DX: R35.0 Frequency of micturition (principal); E78.5 Hyperlipidemia, unspecified; Z86.2 Personal history of diseases of the blood and blood-forming organs and certain disorders involving the immune mechanism; Z79.899 Other long term (current) drug therapy

== ENCOUNTER → 2025-08-29 | Outpatient (REF) | payer MEDICARE, OTHER | LOC: M SFHCLERA 13:01 | PROVIDERS: ATTEND Family Medicine | DX: R30.0 Dysuria (principal) ==

== ENCOUNTER 2025-09-06 17:08 | Inpatient (IN) | payer MEDICARE, OTHER ==
[~2025-09-06] VITALS: Ht 154.9 cm; Wt 77.8 kg
[2025-09-06 17:54] LABS: PLATELET COUNT, AUTOMATED 321 10^3/uL (150-450)
[2025-09-06 18:14] LABS: AMPHETAMINES LEVEL URINE NEGATIVE (NEGATIVE); BARBITURATES URINE NEGATIVE (NEGATIVE); BENZODIAZEPINES URINE NEGATIVE (NEGATIVE); CANNABINOIDS URINE NEGATIVE (NEGATIVE); COCAINE METABOLITE URINE NEGATIVE (NEGATIVE); METHADONE URINE NEGATIVE (NEGATIVE); OPIATES URINE NEGATIVE (NEGATIVE); PHENCYCLIDINE URINE NEGATIVE (NEGATIVE)
[2025-09-06 18:16] LABS: ETHYL ALCOHOL (ETHANOL) < 0.003 % (0.000-0.010)
[2025-09-06 18:18] LABS: ALT/SGPT 18 U/L (7.0-40); AST/SGOT 17 U/L (<34); CALCIUM LEVEL 9.1 MG/DL (8.5-10.1); CARBON DIOXIDE LEVEL 23 MMOL/L (20-31); CHLORIDE LEVEL 108 MMOL/L (98-107); CREATININE FOR GFR 0.67 MG/DL (0.55-1.30); GLOMERULAR FILTRATION RATE > 90.0 (>58); POTASSIUM SERUM 3.9 MMOL/L (3.5-5.1); SALICYLATE LEVEL < 3.0 MG/DL (<30); SODIUM LEVEL 143 MMOL/L (136-145)
[2025-09-06 18:19] LABS: HCG, SERUM QUALITATIVE NEGATIVE (NEGATIVE)
[2025-09-06] MEDS ORDERED: MOM 30 ML SUSPENSION UDC PO PRN (20:15)
[2025-09-06] MEDS ORDERED: IBUPROFEN 400 MG TAB PO PRN (20:15)
[2025-09-06] MEDS ORDERED: LORazepam 1 MG TAB PO PRN (20:15)
[2025-09-06] MEDS ORDERED: MAALOX 30 ML SUSP *UDC PO PRN (20:15)
[2025-09-06] MEDS ORDERED: SERT25TA21 PO (20:19)
[2025-09-06] MEDS ORDERED: CLON0.5T2 PO (20:19)
[2025-09-06] MEDS ORDERED: GABA-1171 PO (20:19)
[2025-09-06] MEDS ORDERED: NICO21DI9 TD (20:19)
[2025-09-06] MEDS ORDERED: SODI88SP7 NARES (20:19)
[2025-09-06] MEDS ORDERED: HOME MED LIST COMPLETE! XX SCH (20:25)
[2025-09-06] MEDS ORDERED: clonazePAM 0.5 MG TAB PO SCH (21:00)
[2025-09-06] MEDS ORDERED: PILL CUTTER 1 EACH XX PRN (23:10)
[2025-09-06] MEDS: clonazePAM 0.5 MG TAB PO ONE (23:16)
[2025-09-06] MEDS: GABAPENTIN 100 MG CAP PO ONE (23:16)
[2025-09-06] MEDS: SERTRALINE HCL 25 MG TABLET PO SCH (23:17)
[2025-09-06] MEDS: NICOTINE 21 MG/24 HR 1 EA TRANSDERMAL TD SCH (23:17)
[2025-09-06] MEDS: FAMOTIDINE 20 MG TAB PO SCH (23:17)
[2025-09-07 01:45] VITALS: BP 116/72; TEMP 97.7; O2SAT 95
[2025-09-07] MEDS: ACETAMINOPHEN 325 MG TAB PO PRN (05:50)
[2025-09-07 06:24] VITALS: BP 129/67; TEMP 97; O2SAT 98
[2025-09-07] MEDS: clonazePAM 0.5 MG TAB PO SCH (08:14)
[2025-09-07] MEDS: GABAPENTIN 100 MG CAP PO SCH (08:14)
[2025-09-07] MEDS: NICOTINE 21 MG/24 HR 1 EA TRANSDERMAL TD SCH (08:19)
[2025-09-07 09:02] VITALS: BP 116/58; TEMP 97.2; O2SAT 98
[2025-09-07 15:27] VITALS: BP 125/58; TEMP 97.9; O2SAT 98
[2025-09-07] MEDS ORDERED: GLUCAGON INJ 1 MG VIAL SC PRN (19:25)
[2025-09-07] MEDS ORDERED: GLUCOSE 4 GM CHEW PO PRN (19:25)
[2025-09-07] MEDS ORDERED: DEXTROSE 50% 50 ML SYRINGE IV PRN (19:25)
[2025-09-07] MEDS: traZODone 50 MG TAB PO PRN (20:48)
[2025-09-08 06:30] VITALS: BP 109/57; TEMP 98.2; O2SAT 99
[2025-09-08] MEDS: FLUTICASONE PROPIONATE 0.05% NASAL SPRAY 16 GM NARES PRN (08:49)
[2025-09-08] MEDS: SODIUM CHLORIDE NASAL 0.65% SPRAY BTL (OCEAN) PRN ×2 (11:21→18:46)
[2025-09-08 15:35] VITALS: BP 120/58; TEMP 97.8; O2SAT 98
[2025-09-09] MEDS: GABAPENTIN 300 MG CAP PO SCH (15:23)
[2025-09-09 15:28] VITALS: BP 114/78; TEMP 97.6; O2SAT 100
[2025-09-10 06:34] VITALS: BP 115/59; TEMP 97.1; O2SAT 100
[2025-09-10 15:18] VITALS: BP 125/65; TEMP 96.5; O2SAT 95
[2025-09-10 18:14] VITALS: BP 120/60
[2025-09-10] MEDS: SERTRALINE HCL 25 MG TABLET PO SCH (21:51)
[2025-09-11 06:36] VITALS: BP 112/59; TEMP 97.7; O2SAT 99
[2025-09-11] MEDS: GABAPENTIN 400 MG CAP PO SCH (15:14)
[2025-09-11 17:29] VITALS: BP 127/64; TEMP 97.7; O2SAT 99
[2025-09-12 06:19] VITALS: BP 120/65; TEMP 97.1; O2SAT 96
[2025-09-12 14:43] VITALS: BP 106/53; TEMP 97.1; O2SAT 97
[2025-09-13 06:51] VITALS: BP 101/64; TEMP 97; O2SAT 97
[2025-09-13] MEDS ORDERED: LIDOCAINE 5% PATCH TD PRN (10:50)
[2025-09-13 16:10] VITALS: BP 129/58; TEMP 97.9; O2SAT 100
[2025-09-14 06:38] VITALS: BP 119/58; TEMP 97; O2SAT 97
[2025-09-14 15:27] VITALS: BP 113/57; TEMP 96.7; O2SAT 96
[2025-09-15 06:40] VITALS: BP 116/55; TEMP 97.3; O2SAT 93
[2025-09-15 15:38] VITALS: BP 123/66; TEMP 97.2; O2SAT 97
[2025-09-16 06:31] VITALS: BP 119/60; TEMP 97.6; O2SAT 96
[2025-09-16] MEDS ORDERED: MIRALAX *UNIT DOSE* 17 GM PACKET PO PRN (17:45)
[2025-09-16] MEDS ORDERED: LORATADINE 10 MG TAB PO PRN (17:45)
[2025-09-16 18:20] VITALS: BP 116/63; TEMP 97.5
[2025-09-16] MEDS: SERTRALINE HCL 25 MG TABLET PO SCH (21:00)
[2025-09-17 06:33] VITALS: BP 103/59; TEMP 97.6; O2SAT 96
[2025-09-17 15:36] VITALS: BP 113/63; TEMP 97.3; O2SAT 95
[2025-09-18 06:17] VITALS: BP 115/54; TEMP 97.7; O2SAT 96
[2025-09-18 15:55] VITALS: BP 137/77; TEMP 97.5; O2SAT 99
[2025-09-18] MEDS: SERTRALINE HCL 50 MG TAB PO SCH (20:11)
[2025-09-19 06:14] VITALS: BP 115/59; TEMP 97.4; O2SAT 95
[2025-09-19 15:52] VITALS: BP 125/64; TEMP 97.6; O2SAT 96
[2025-09-20 06:33] VITALS: BP 113/57; TEMP 97.6; O2SAT 94
[2025-09-20] MEDS ORDERED: SERT50TA29 PO (08:55)
[2025-09-20] MEDS ORDERED: GABA-284 PO (08:55)
== END 2025-09-20 11:47 | disposition home or self-care (01) | DRG 880 ==
LOC: M ED 17:08 → M ED INP 20:12 → M PSY 21:08
PROVIDERS: ADMIT Psychiatry & Neurology Neurology; ATTEND Psychiatry & Neurology Psychiatry
DX: F41.1 Generalized anxiety disorder (principal); F32.9 Major depressive disorder, single episode, unspecified; F42.9 Obsessive-compulsive disorder, unspecified; J32.9 Chronic sinusitis, unspecified; K21.9 Gastro-esophageal reflux disease without esophagitis; K58.1 Irritable bowel syndrome with constipation; F60.7 Dependent personality disorder; E61.1 Iron deficiency; K91.1 Postgastric surgery syndromes; Z90.49 Acquired absence of other specified parts of digestive tract; Z98.84 Bariatric surgery status; Z79.899 Other long term (current) drug therapy; Z88.8 Allergy status to other drugs, medicaments and biological substances

== ENCOUNTER 2025-09-27 19:12 | Emergency (ER) | payer MEDICARE, OTHER ==
[~2025-09-27] VITALS: Ht 154.9 cm; Wt 74.3 kg
[~2025-09-27 19:12] MED LIST changes: +GABA-284 PO; +NICO21DI9 TD; +SERT25TA21 PO; +SERT50TA29 PO; +SODI88SP7 NARES
[2025-09-27 19:13] VITALS: BP 122/64; TEMP 97.7; O2SAT 99
[2025-09-27] MEDS ORDERED: ZOLO50TA PO (19:25)
[2025-09-27 19:58] LABS: PLATELET COUNT, AUTOMATED 295 10^3/uL (150-450)
[2025-09-27 20:20] LABS: AMPHETAMINES LEVEL URINE NEGATIVE (NEGATIVE)
[2025-09-27 20:21] LABS: BARBITURATES URINE NEGATIVE (NEGATIVE); CANNABINOIDS URINE NEGATIVE (NEGATIVE); COCAINE METABOLITE URINE NEGATIVE (NEGATIVE); METHADONE URINE NEGATIVE (NEGATIVE); OPIATES URINE NEGATIVE (NEGATIVE); PHENCYCLIDINE URINE NEGATIVE (NEGATIVE)
[2025-09-27 20:25] LABS: BENZODIAZEPINES URINE POSITIVE (NEGATIVE)
[2025-09-27 20:56] LABS: ETHYL ALCOHOL (ETHANOL) < 0.003 % (0.000-0.010)
[2025-09-27 20:58] LABS: ALT/SGPT 13 U/L (7.0-40); AST/SGOT 17 U/L (<34); CALCIUM LEVEL 9.0 MG/DL (8.5-10.1); CARBON DIOXIDE LEVEL 27 MMOL/L (20-31); CHLORIDE LEVEL 107 MMOL/L (98-107); CREATININE FOR GFR 0.62 MG/DL (0.55-1.30); GLOMERULAR FILTRATION RATE > 90.0 (>58); POTASSIUM SERUM 3.5 MMOL/L (3.5-5.1); SALICYLATE LEVEL < 3.0 MG/DL (<30); SODIUM LEVEL 146 MMOL/L (136-145)
[2025-09-27] MEDS ORDERED: CLON1TAB17 PO (21:06)
[2025-09-27] MEDS: clonazePAM 0.5 MG TAB PO ONE (21:29)
[2025-09-28] MEDS ORDERED: SIME1CAP4 PO (22:45)
[2025-09-28] MEDS ORDERED: MAAL10003 PO (22:45)
== END 2025-09-27 21:45 | disposition home or self-care (01) ==
LOC: M ED 19:12
DX: F41.9 Anxiety disorder, unspecified (principal); K58.9 Irritable bowel syndrome, unspecified; K21.9 Gastro-esophageal reflux disease without esophagitis; F17.290 Nicotine dependence, other tobacco product, uncomplicated; Z88.8 Allergy status to other drugs, medicaments and biological substances; Z79.899 Other long term (current) drug therapy

== ENCOUNTER 2025-09-28 17:46 | Emergency (ER) | payer MEDICARE, OTHER ==
[~2025-09-28] VITALS: Ht 154.9 cm; Wt 74.8 kg
[~2025-09-28 17:46] MED LIST changes: +CLON1TAB17 PO; +ZOLO50TA PO
[2025-09-28 18:19] LABS: KETONE, URINE AUTO RFX 1+ mg/dL (NEGATIVE); LEUKOCYTE ESTERASE UR AUTO RFX NEGATIVE (NEGATIVE); MUCUS, URINE RFX LARGE (NEGATIVE); NITRITE, URINE AUTO RFX NEGATIVE (NEGATIVE); RBC, URINE AUTO RFX 0 /HPF (0-3); SQUAM EPITHELIAL CELL UR AURFX 3 /HPF (0-6); TRANSITIONAL EPITHELIAL AU RFX <1 /HPF; WBC, URINE AUTO RFX 2 /HPF (0-3)
[2025-09-28 18:29] LABS: BASO # 0.0 10^3/uL (0.0-0.2); BASO % 0.5 % (0.0-1.0); EOS # 0.0 10^3/uL (0.0-0.5); EOS % 0.3 % (0.0-3.0); LYMPH # 1.8 10^3/uL (1.5-5.0); LYMPH % 23.4 % (24.0-44.0); MONO # 0.5 10^3/uL (0.0-0.8); MONO % 6.1 % (2.0-8.0); NEUTROPHILS # 5.3 10^3/uL (1.5-8.5); NEUTROPHILS % 69.6 % (36.0-66.0); PLATELET COUNT, AUTOMATED 290 10^3/uL (150-450)
[2025-09-28] MEDS: NS (Normal Saline) 0.9% 1,000 ML IV ONE (18:50)
[2025-09-28 18:51] LABS: HCG, SERUM QUANTITATIVE < 2.6 MIU/ML (<4.2)
[2025-09-28] MEDS: ACETAMINOPHEN *IV* 500 MG in IV 1 EA IV ONE (18:52)
[2025-09-28 18:53] LABS: ALT/SGPT 14 U/L (7.0-40); AST/SGOT 21 U/L (<34); CALCIUM LEVEL 9.0 MG/DL (8.5-10.1); CARBON DIOXIDE LEVEL 25 MMOL/L (20-31); CHLORIDE LEVEL 105 MMOL/L (98-107); CREATININE FOR GFR 0.60 MG/DL (0.55-1.30); GLOMERULAR FILTRATION RATE > 90.0 (>58); POTASSIUM SERUM 3.9 MMOL/L (3.5-5.1); SODIUM LEVEL 143 MMOL/L (136-145)
[2025-09-28] MEDS: GASTROGRAFIN SOLUTION 30ML PO SCH (19:18)
[2025-09-28] MEDS ORDERED: ISOVUE-370 76% 100 ML VIAL As Ordered ONE (20:00)
[2025-09-28] MEDS ORDERED: SIME1CAP4 PO (22:45)
[2025-09-28] MEDS ORDERED: MAAL10003 PO (22:45)
[2025-09-28 22:53] VITALS: BP 114/59; TEMP 96.8; O2SAT 95
== END 2025-09-28 22:57 | disposition home or self-care (01) ==
LOC: M ED 17:46
DX: K29.00 Acute gastritis without bleeding (principal); D64.9 Anemia, unspecified; Q07.00 Arnold-Chiari syndrome without spina bifida or hydrocephalus; F41.9 Anxiety disorder, unspecified; Z88.8 Allergy status to other drugs, medicaments and biological substances; Z79.899 Other long term (current) drug therapy
CPT/HCPCS: 74177; 80048; 80076; 81001; 83690; 84702; 85025; 96374; 99284; J0134; Q9963; Q9967

== ENCOUNTER 2025-10-07 11:01 | Emergency (ER) | payer MEDICARE, OTHER ==
[~2025-10-07] VITALS: Ht 154.9 cm; Wt 74.5 kg
[~2025-10-07 11:01] MED LIST changes: +MAAL10003 PO; +SIME1CAP4 PO
[2025-10-07 12:29] LABS: BASO # 0.0 10^3/uL (0.0-0.2); BASO % 0.6 % (0.0-1.0); EOS # 0.0 10^3/uL (0.0-0.5); EOS % 0.7 % (0.0-3.0); LYMPH # 1.7 10^3/uL (1.5-5.0); LYMPH % 30.9 % (24.0-44.0); MONO # 0.5 10^3/uL (0.0-0.8); MONO % 9.1 % (2.0-8.0); NEUTROPHILS # 3.2 10^3/uL (1.5-8.5); NEUTROPHILS % 58.5 % (36.0-66.0); PLATELET COUNT, AUTOMATED 275 10^3/uL (150-450)
[2025-10-07 12:37] LABS: ALT/SGPT 10 U/L (7.0-40); AST/SGOT 17 U/L (<34); CALCIUM LEVEL 9.0 MG/DL (8.5-10.1); CARBON DIOXIDE LEVEL 27 MMOL/L (20-31); CHLORIDE LEVEL 103 MMOL/L (98-107); CREATININE FOR GFR 0.66 MG/DL (0.55-1.30); GLOMERULAR FILTRATION RATE > 90.0 (>58); POTASSIUM SERUM 3.9 MMOL/L (3.5-5.1); SODIUM LEVEL 142 MMOL/L (136-145)
[2025-10-07] MEDS ORDERED: ISOVUE-370 76% 100 ML VIAL As Ordered ONE (15:20)
[2025-10-07] MEDS: KETOROLAC 30 MG/ML 1 ML VIAL IV ONE (15:34)
[2025-10-07 15:37] LABS: KETONE, URINE AUTO RFX 1+ mg/dL (NEGATIVE); LEUKOCYTE ESTERASE UR AUTO RFX NEGATIVE (NEGATIVE); MUCUS, URINE RFX LARGE (NEGATIVE); NITRITE, URINE AUTO RFX NEGATIVE (NEGATIVE); RBC, URINE AUTO RFX 2 /HPF (0-3); SQUAM EPITHELIAL CELL UR AURFX 1 /HPF (0-6); WBC, URINE AUTO RFX 1 /HPF (0-3)
[2025-10-07] MEDS: NS 500 ML IV ONE (17:00)
[2025-10-07 17:53] VITALS: BP 115/57; TEMP 98.6; O2SAT 98
== END 2025-10-07 18:22 | disposition home or self-care (01) ==
LOC: M ED 11:01
DX: R10.32 Left lower quadrant pain (principal); Z98.84 Bariatric surgery status; K76.0 Fatty (change of) liver, not elsewhere classified; Z90.49 Acquired absence of other specified parts of digestive tract; Z79.899 Other long term (current) drug therapy
CPT/HCPCS: 74018; 74177; 80048; 80076; 81001; 82150; 83690; 85025; 96361; 96374; 99284; J1885; Q9967